=== PATIENT | female | born 1975 | race Caucasian/White ===

== ENCOUNTER 2023-03-31 10:38 | Emergency (ER) | payer OTHER, MEDICAID, SELFPAY ==
[2023-03-31 10:39] VITALS: BP 106/66
[2023-03-31 11:28] LABS: % Basophils 1.8 % (0-2); % Eosinophils 2.7 % (0-6); % Immature Granulocytes 0.2 % (0-0.5); % Lymphocytes 17.1 % (20.5-51.1); % Neutrophils 68.2 % (42.2-75.2); Absolute Basophils 0.1 10^3/uL (0-0.2); Absolute Eosinophils 0.1 10^3/uL (0-0.7); Absolute Lymphocytes 0.8 10^3/uL (1.2-3.4); Absolute Monocytes 0.4 10^3/uL (0.1-0.6); Hematocrit 41.9 % (37.0-47.0); Hemoglobin 13.7 g/dL (12.0-16.0); Mean Corp Hgb Conc. 32.7 g/dL (33.0-37.0); Mean Corpuscular Hgb 29.3 pg (27.0-31.0); Mean Corpuscular Volume 89.7 fL (81.0-99.0); Mean Platelet Volume 9.5 fL (7.4-10.4); Nucleated Red Blood Cells % 0 %; Platelet Count 209 10^3/uL (130-400); Red Blood Cell Count 4.67 10^6/uL (4.20-5.40); Red Cell Dist. Width 18.1 % (11.5-14.5); White Blood Cell Count 4.4 10^3/uL (4.8-10.8)
--- NOTE | 2023-03-31 11:31 | ED.GENMED ---
History of Present Illness
<Dwaine Murry PA-C - Last Filed: 03/31/23 13:03>
General
Chief Complaint: Fatigue
Source: patient, records and ambulance crew
Time Seen by Provider: 03/31/23 11:08
Travel History
Have you had any contact with someone who has COVID-19?: No
Do you have any symptoms of coronavirus? Fever > 100 degrees, chills, cough, shortness of breath, sore throat, loss of taste or smell, muscle aches, or headache?: No
History of Present Illness
History of Present Illness:
47-year-old female with past medical history of Down syndrome, developmental delay, hypothyroidism and prediabetes presenting to the ER via EMS after there was an episode of unresponsiveness when the father went to go wake up the patient this
morning. Father notes history of multiple similar episodes over the last few months and patient has had multiple workups for this without any clear etiology. Symptoms today were not any different than the last few months. Patient has been seen in
this emergency department for similar again without any clear etiology found. Father notes that they had a evaluation at the cardiology office last week and that all tests were unremarkable. Patient is without any concerns at this time.
Past History
<Dwaine Murry PA-C - Last Filed: 03/31/23 13:03>
Past History
ED Past Medical History: Hypothyroidism, Psychiatric (Depression, ), Other (PNA, ) and Other (Down syndrome, pulmonary hypertension, SOPHY with CPAP, morbid obesity, )
ED Past Surgical History: Cardiac ([employer] Loop Recorder), Orthopedic (Left leg surgery), Tonsilectomy and Other (heart valve surgery as infant)
Social History
Tobacco: Non-smoker
Alcohol: None
Drug: None
Personal: Single
Living: with family
Employment: Employed
Review of Systems
<Dwaine Murry PA-C - Last Filed: 03/31/23 13:03>
Review of Systems
All Other Systems: ROS reviewed and negative except as documented in HPI and ROS
Phy Exam
<Dwaine Murry PA-C - Last Filed: 03/31/23 13:03>
Physical Exam
Physical Exam:
GENERAL: Alert , in no apparent distress
EYE: conjunctiva clear
Head: Normocephalic atraumatic
NECK: Supple,
ENT: mmm.
LUNGS: no acute respiratory distress
NEUROLOGICAL: Alert and oriented
SKIN: Warm and dry, skin intact.
MUSCULOSKELETAL: well perfused.
PSYCH: Normal and appropriate interaction.
Scores
<Dwaine Murry PA-C - Last Filed: 03/31/23 13:03>
Heart Failure Risk
Heart Failure Risk Score: Not Applicable
Heart Score for Chest Pain Patients
STEMI patient?: Not applicable
Withdrawal Assessment of Alcohol
Withdrawal Assessment Completed?: Not applicable
Course
<Dwaine Murry PA-C - Last Filed: 03/31/23 13:03>
Orders/Labs/Results
Orders:
Orders
03/31/23 11:07
Electrocardiogram (*1) Urgent
Reason for Study: Chest Pain
Cardiac Monitoring- Treatment ONCE
EKG- Treatment ONCE
IV Insert/Care/Rem.- Treatment PRN
Pulse Ox/spot Check [RESP] Urgent
Quantity: 1
Special Instructions: ON ROOM AIR
03/31/23 11:08
Basic Metabolic Panel Urgent
Complete Blood Count/With Diff Urgent
Troponin I Urgent
03/31/23 12:02
Urinalysis Reflex To Culture Urgent
Date Specimen was Collected: 03/31/23
Time Specimen was Collected: 11:59
Abnormal Lab Results
03/31/23
11:08
WBC 4.4 L 10^3/uL
(4.8-10.8)
MCHC 32.7 L g/dL
(33.0-37.0)
RDW 18.1 H %
(11.5-14.5)
Absolute Lymphs (auto) 0.8 L 10^3/uL
(1.2-3.4)
Lymphocytes % 17.1 L %
(20.5-51.1)
Monocytes % 10.0 H %
(1.7-9.3)
BUN 24 H mg/dl
(7-17)
Calcium 8.1 L mg/dl
(8.4-10.2)
03/31/23 11:08
03/31/23 11:08
Vital Signs
Initial and Last Documented VS:
Initial Vital Signs
Temp Pulse Resp BP Pulse Ox
98.3 F 66 18 106/66 95
03/31/23 10:39 03/31/23 10:39 03/31/23 10:39 03/31/23 10:39 03/31/23 10:39
Last Documented Vital Signs
Temp Pulse Resp BP Pulse Ox
98.3 F 77 18 106/66 98
03/31/23 13:05 03/31/23 13:05 03/31/23 13:05 03/31/23 10:39 03/31/23 13:05
<Shawn Bonilla, DO - Last Filed: 03/31/23 15:23>
Orders/Labs/Results
Orders:
Orders
03/31/23 11:07
Electrocardiogram (*1) Urgent
Reason for Study: Chest Pain
Cardiac Monitoring- Treatment ONCE
EKG- Treatment ONCE
IV Insert/Care/Rem.- Treatment PRN
Pulse Ox/spot Check [RESP] Urgent
Quantity: 1
Special Instructions: ON ROOM AIR
03/31/23 11:08
Basic Metabolic Panel Urgent
Complete Blood Count/With Diff Urgent
Troponin I Urgent
03/31/23 12:02
Urinalysis Reflex To Culture Urgent
Date Specimen was Collected: 03/31/23
Time Specimen was Collected: 11:59
Abnormal Lab Results
03/31/23
11:08
WBC 4.4 L 10^3/uL
(4.8-10.8)
MCHC 32.7 L g/dL
(33.0-37.0)
RDW 18.1 H %
(11.5-14.5)
Absolute Lymphs (auto) 0.8 L 10^3/uL
(1.2-3.4)
Lymphocytes % 17.1 L %
(20.5-51.1)
Monocytes % 10.0 H %
(1.7-9.3)
BUN 24 H mg/dl
(7-17)
Calcium 8.1 L mg/dl
(8.4-10.2)
03/31/23 11:08
03/31/23 11:08
Vital Signs
Initial and Last Documented VS:
Initial Vital Signs
Temp Pulse Resp BP Pulse Ox
98.3 F 66 18 106/66 95
03/31/23 10:39 03/31/23 10:39 03/31/23 10:39 03/31/23 10:39 03/31/23 10:39
Last Documented Vital Signs
Temp Pulse Resp BP Pulse Ox
98.3 F 77 18 106/66 98
03/31/23 13:05 03/31/23 13:05 03/31/23 13:05 03/31/23 10:39 03/31/23 13:05
<Dwaine Murry PA-C - Last Filed: 03/31/23 13:03>
MDM/Problems Addressed
Differential Diagnosis Includes:
Cardiac dysrhythmia, electrolyte derangement, anemia, seizure, vagal episode
MDM/Problems Addressed:
47-year-old female presenting emergency department for evaluation after she had an episode of being difficult to arouse earlier this morning, without any concerns at this time. Patient has had multiple similar visits to this emergency department
recently. No clear etiology is found and overall I am not very suspicious of any acute emergent pathologies. Will recheck labs, EKG, urinalysis and reassess following. I spoke with father via telephone as he is currently not in the emergency
department and father also agrees there is unlikely any acute emergent pathology and that there was no symptoms that were different today than previous visits to the emergency department.
Chronic conditions affecting care: Other (Developmental delay/Down syndrome)
<Dwaine Murry PA-C - Last Filed: 03/31/23 13:03>
*Pulse Oximetry
Patient hypoxic: no
*Critical Care Note
Total Time (30-74mins, 75-104mins- exclusive of procedures): Not Applicable
<Dwaine Murry PA-C - Last Filed: 03/31/23 13:03>
Patient Management
Escalation/DeEscalation of care consider admission/obs:
Patient's labs overall reassuring. There is a leukopenia however this does appear to be chronic for the patient based off of record review. Urinalysis is unremarkable. I contacted patient's father who will come to the emergency department to pick
the patient up. Patient and father are both aware of return precautions but otherwise stable for discharge home.
ED Attending Note
<Dwaine Murry PA-C - Last Filed: 03/31/23 13:03>
-
Portions of this chart may have been created with voice recognition software.� Occasional wrong word or��sound alike� substitutions may have occurred due to the inherent limitations of voice recognition software.
<Shawn Bonilla DO - Last Filed: 03/31/23 15:23>
ED Attending Note
Patient seen and examined by attending physician: Yes
ED Attending Note:
I have reviewed and agree with Artur Murry's history and treatment plan. Exam revealed nontoxic well-appearing 47-year-old female ambulating without difficulty. Stable for discharge.
Discharge Plan
Departure
Patient Disposition: Home (Routine Discharge)
Date of Disposition: 03/31/23
Time of Disposition: 12:47
Patient with high blood pressure during this ER visit?: No
Discharge Problem:
Episode of unresponsiveness
Instructions: Fatigue (DC)
Prescriptions:
No Action
ascorbic acid (vitamin C) [Vitamin C] 500 mg Tablet
500 mg PO DAILY
escitalopram oxalate 10 mg tablet
10 mg PO DAILY
Hold Instructions: Resume on 07/04/23. Only resume if any only if your outpatient providers say you should resume this medication.
ezetimibe 10 mg tablet
10 mg PO DAILY
albuterol sulfate [ProAir HFA] 90 mcg/actuation HFA aerosol inhaler
2 puff inhalation R Q4HPRN PRN (Reason: shortness of breath)
cyanocobalamin (vitamin B-12) 1,000 mcg Tablet
1,000 mcg PO DAILY
levothyroxine 112 mcg Tablet
112 mcg PO DAILY@0700 Qty: 30 0RF
Hold Instructions: Resume on 03/28/23.
midodrine 2.5 mg Tablet
2.5 mg PO TID@0800,1300,1800
Hold Instructions: Resume on 06/25/23. Only resume this medication if and only if your outpatient providers say you should resume this medication.
guaifenesin 600 mg tablet extended release 12hr
600 mg PO Q12H
Referrals:
UNKNOWN - PT DOES,NOT KNOW [Family Provider] -
Interventions
Interventions:
*Risk Screen - Suicide Last Done: 03/31/23 10:39
*General Assessment Last Done: 03/31/23 10:39
*Neglect/Abuse Screening Last Done: 03/31/23 10:39
ED- Fall Risk Assessment Last Done: 03/31/23 13:05
*ED COVID-19 Vaccine History Last Done: 03/31/23 10:39
*Nursing Disposition Last Done: 03/31/23 13:05
Discharge Date and Time
Discharge Date/Time: 03/31/23 13:06
[2023-03-31 11:45] LABS: Blood Urea Nitrogen 24 mg/dl (7-17); Calcium 8.1 mg/dl (8.4-10.2); Carbon Dioxide 28 mmol/L (22-30); Chloride 104 mmol/L (98-107); Glucose 97 mg/dl (70-99); Sodium 135 mmol/L (135-145); eGFR > 60.00
--- NOTE | 2023-03-31 11:50 | CM ---
CM reviewed medical records. CM spoke with ED provider. Patient presenting with ongoing symptoms of unresponsiveness. Patient is now awake and oriented to her baseline. CM will continue to follow for needs.
[2023-03-31 11:51] LABS: Troponin I < 0.012 ng/ml
[2023-03-31 12:22] LABS: Urine Albumin Negative (Neg - Trace); Urine Bilirubin Negative (Negative); Urine Character Clear (Clear); Urine Color Yellow; Urine Glucose Negative (Negative); Urine Ketone Negative (Negative); Urine Leukocyte Negative (Negative); Urine Nitrite Negative (Negative); Urine Occult Blood Negative (Negative); Urine Urobilinogen Negative (Neg - 1+)
== END 2023-03-31 13:06 | disposition home or self-care (01) ==
LOC: EMR 10:38
PROVIDERS: Physician Assistant Medical; EMERGENCY PHYSICIAN Emergency Medicine
DX: R46.4 Slowness and poor responsiveness (principal); Q90.9 Down syndrome, unspecified
CPT/HCPCS: 99284; 80048; 81003; 84484; 85025; 93005

== ENCOUNTER 2023-04-01 09:32 | Emergency (ER) | payer OTHER, MEDICAID, SELFPAY ==
[2023-04-01 09:39] VITALS: BP 122/84
[2023-04-01 09:50] VITALS: BP 106/65
[2023-04-01 09:53] VITALS: BMI 50.8
--- NOTE | 2023-04-01 09:55 | EDRN ---
this RN entered the pts room to assess the pt, the pts father stated to this RN, 'We were going to leave, she lays herself on the floor, she does not fall, she says she falls but she doesn't, she does this at home all the time, she watches greys
anatomy and just wants to be in the hospital, this is ridiculous', this RN notified provider
[2023-04-01 10:00] VITALS: BP 101/64
--- NOTE | 2023-04-01 10:56 | EDRN ---
this RN attempted to draw blood and was unsuccessful, IV team paged
[2023-04-01 11:18] LABS: % Basophils 1.8 % (0-2); % Eosinophils 2.7 % (0-6); % Immature Granulocytes 0.2 % (0-0.5); % Lymphocytes 16.4 % (20.5-51.1); % Monocytes 15.6 % (1.7-9.3); % Neutrophils 63.3 % (42.2-75.2); Absolute Basophils 0.1 10^3/uL (0-0.2); Absolute Eosinophils 0.1 10^3/uL (0-0.7); Absolute Lymphocytes 0.8 10^3/uL (1.2-3.4); Absolute Monocytes 0.8 10^3/uL (0.1-0.6); Absolute Neutrophils 3.1 10^3/uL (1.4-6.5); Hematocrit 40.8 % (37.0-47.0); Hemoglobin 13.3 g/dL (12.0-16.0); Mean Corp Hgb Conc. 32.6 g/dL (33.0-37.0); Mean Corpuscular Hgb 29.2 pg (27.0-31.0); Mean Corpuscular Volume 89.5 fL (81.0-99.0); Mean Platelet Volume 9.8 fL (7.4-10.4); Nucleated Red Blood Cells % 0 %; Platelet Count 214 10^3/uL (130-400); Red Blood Cell Count 4.56 10^6/uL (4.20-5.40); Red Cell Dist. Width 17.9 % (11.5-14.5); White Blood Cell Count 4.9 10^3/uL (4.8-10.8)
[2023-04-01 11:29] LABS: ALT (SGPT) 90 U/L (0-35); AST (SGOT) 44 U/L (14-36); Albumin 3.3 g/dl (3.5-5.0); Alkaline Phosphatase 76 U/L (38-126); Blood Urea Nitrogen 15 mg/dl (7-17); Calcium 8.4 mg/dl (8.4-10.2); Carbon Dioxide 27 mmol/L (22-30); Chloride 107 mmol/L (98-107); Estimated Creatinine Clearance 105 ml/min; Glucose 94 mg/dl (70-99); Potassium 4.4 mmol/L (3.5-5.1); Sodium 136 mmol/L (135-145); Total Bilirubin 0.5 mg/dl (0.2-1.3); Total Protein 6.1 g/dl (6.3-8.2); eGFR > 60.00
[2023-04-01 12:01] LABS: HCG, Serum Qualitative Screen Negative
--- NOTE | 2023-04-01 12:23 | ED.GENMED ---
History of Present Illness
General
Chief Complaint: Headache
Source: patient, records and family (Father)
Exam Limitations: none
Time Seen by Provider: 04/01/23 09:57
Nursing documentation reviewed up to this point in time: agreed with
Travel History
Have you had any contact with someone who has COVID-19?: No
Do you have any symptoms of coronavirus? Fever > 100 degrees, chills, cough, shortness of breath, sore throat, loss of taste or smell, muscle aches, or headache?: No
History of Present Illness
History of Present Illness:
47-year-old female with a past medical history of recurrent syncope, Down syndrome, congenital heart disease, hypothyroidism, depression, pulmonary hypertension, obesity, SOPHY who presents to the emergency room today for evaluation of unresponsive
episode. Of note this is patient's fifth visit in the past 30 days with similar presentation. Most recently seen yesterday and discharged after an episode. She was admitted 03/12 until 03/15 related to medication overdose but was also having issues
with syncope. Has been seen and cleared by cardiology. Her father essentially says that patient seems to have a behavioral issue: He says that when he goes to wake patient from sleep often in the morning he has trouble arousing her�he describes
this as being unresponsive but says the patient is moving spontaneously including batting him away and does appear to be breathing. She also has had episodes where he says that she 'laid herself onto the ground.' Today he says that he went to wake
her up and again she was difficult to arouse. He called EMS and they did not end up bring patient to the hospital instead recommended that he go seek psychiatric care. He went to [facility] and was told that she is not a danger to herself and can seek
outpatient psychiatric care. When they were leaving the hospital patient asked to use the bathroom and when she went to the bathroom she did not immediately come out and staff found her lying on the floor although she was awake. She says she did
not hit her head. Initially was apparently complaining of a headache today but she says she has no headache at present. She says she feels fine. Father says that oftentimes these episodes seem to be precipitated by father having her to do
something she does not want to do such as go home.
Past History
Past History
ED Past Medical History: Hypothyroidism, Psychiatric (Depression, ), Other (PNA, ) and Other (Down syndrome, pulmonary hypertension, SOPHY with CPAP, morbid obesity, )
ED Past Surgical History: Cardiac ([employer] Loop Recorder), Orthopedic (Left leg surgery), Tonsilectomy and Other (heart valve surgery as infant)
Social History
Tobacco: Non-smoker
Alcohol: None
Drug: None
Personal: Single
Living: with family
Employment: Employed
Phy Exam
Physical Exam
Physical Exam:
General: Awake, alert; no acute distress
Head: Normocephalic, atraumatic
Eyes: Conjunctiva normal, EOMI, pupils equal round reactive to light bilaterally
Throat: Airway intact, handling secretions
Neck: Trachea midline, supple without meningismus
Lungs: Clear to auscultation bilaterally, no wheezing, rales, rhonchi
Heart: Regular rate and rhythm, no murmurs, gallops, or rubs
Abd: Soft, non distended, nontender
Neuro: Cranial nerves grossly intact, speech fluid
Skin: no rash
Extremities: No edema in extremities, equal pulses in all extremities
Scores
Heart Failure Risk
Heart Failure Risk Score: Not Applicable
Heart Score for Chest Pain Patients
STEMI patient?: Not applicable
Withdrawal Assessment of Alcohol
Withdrawal Assessment Completed?: Not applicable
Course
Orders/Labs/Results
Orders:
Orders
04/01/23 10:02
Electrocardiogram (*1) Urgent
Reason for Study: Vertigo / Dizzy
CT Head W/o Iv Contrast Urgent
Comment:
Reason For Exam: headache, dizzy, ?fall
EKG- Treatment ONCE
Test Result ONCE
04/01/23 11:02
Complete Blood Count/With Diff Urgent
Comprehensive Metabolic Panel Urgent
Ferritin Urgent
HCG, Serum Qualitative Screen Urgent
Vitamin B12 Urgent
Comment: FERRITIN,FOLATE,B12 ADDED ON BY FLOOR 11:50AM 04-01-23
04/01/23 11:47
Consult Neurology [NEUROLOGY CONSULT] Urgent
Consulting Provider: Aram Alonzo
Was physician already notified: Yes
04/01/23 11:51
Add On- LAB Urgent
Tests Added?: Ferritin, Folate, Vitamin B12
04/01/23 11:58
Orthostatic VS- Treatment ONCE
Abnormal Lab Results
04/01/23
11:02
MCHC 32.6 L g/dL
(33.0-37.0)
RDW 17.9 H %
(11.5-14.5)
Absolute Lymphs (auto) 0.8 L 10^3/uL
(1.2-3.4)
Absolute Monos (auto) 0.8 H 10^3/uL
(0.1-0.6)
Lymphocytes % 16.4 L %
(20.5-51.1)
Monocytes % 15.6 H %
(1.7-9.3)
Ferritin 269.0 H ng/ml
(6.24-137)
AST 44 H U/L
(14-36)
ALT 90 H U/L
(0-35)
Total Protein 6.1 L g/dl
(6.3-8.2)
Albumin 3.3 L g/dl
(3.5-5.0)
04/01/23 11:02
04/01/23 11:02
Vital Signs
Initial and Last Documented VS:
Initial Vital Signs
Temp Pulse Resp BP Pulse Ox
36.9 C 57 16 122/84 98
04/01/23 09:39 04/01/23 09:39 04/01/23 09:39 04/01/23 09:39 04/01/23 09:39
Last Documented Vital Signs
Temp Pulse Resp BP Pulse Ox
36.9 C 57 16 101/64 98
04/01/23 09:39 04/01/23 09:39 04/01/23 09:39 04/01/23 10:00 04/01/23 09:39
MDM/Problems Addressed
Differential Diagnosis Includes:
Recurrent syncope, seizure, behavioral issue
MDM/Problems Addressed:
47-year-old female presents once again for evaluation after episode of unresponsiveness/syncope. Apparently had a mild headache today. Father questions whether this is a behavioral issue. She appears well has no complaints for me. Her vital
signs are normal. Her physical exam is as above. Her EKG shows borderline QTc prolongation but otherwise unremarkable. Will check basic labs. Check an hCG. Check CT head. She has had extensive cardiac workup for this and been essentially
cleared from their perspective. Will discuss with neurology to evaluate for potential minor seizures. Monitor on telemetry and reassess after the above.
Labs reviewed: CBC unremarkable, CMP no clinically significant abnormalities�marginal elevation of LFTs which is stable. hCG negative. CT head negative. Neurology evaluated patient and from their perspective low suspicion that this represents
seizure or other primary neurologic disorder. Recommended outpatient follow-up. She has had no issues here she remains comfortable with reassuring vitals and exam, father requesting discharge and I think at this point is a reasonable plan. She
will follow-up with her primary, supervisor dyer and with neurology as an outpatient. Spoke about return precautions all questions answered.
*Radiology
Radiology exam reviewed: radiology read reviewed
*Pulse Oximetry
Patient hypoxic: no
*EKG
Comparison EKG: no changes (No significant changes-QTc only marginally longer than previous)
Heart Rate: 62
Rate: normal
Rhythm: sinus
Townsend: normal axis
Interval: long QT
QRS Pattern: right bundle branch block
Ischemia: no ischemia
*Critical Care Note
Total Time (30-74mins, 75-104mins- exclusive of procedures): Not Applicable
Data Reviewed
Review of Other/Old Records Reveals: Labs, Records and Discharge Summary
Source: patient, records and family
Patient Management
Discussion with other providers: [employer] (Discussed with neurology)
ED Attending Note
-
Portions of this chart may have been created with voice recognition software.� Occasional wrong word or��sound alike� substitutions may have occurred due to the inherent limitations of voice recognition software.
Discharge Plan
Departure
Patient Disposition: Home (Routine Discharge)
Date of Disposition: 04/01/23
Time of Disposition: 13:41
Patient with high blood pressure during this ER visit?: No
Discharge Problem:
Recurrent episodes of unresponsiveness
Instructions: Fainting, Adult ED
Prescriptions:
No Action
ascorbic acid (vitamin C) [Vitamin C] 500 mg Tablet
500 mg PO DAILY
escitalopram oxalate 10 mg tablet
10 mg PO DAILY
Hold Instructions: Resume on 07/04/23. Only resume if any only if your outpatient providers say you should resume this medication.
ezetimibe 10 mg tablet
10 mg PO DAILY
albuterol sulfate [ProAir HFA] 90 mcg/actuation HFA aerosol inhaler
2 puff inhalation R Q4HPRN PRN (Reason: shortness of breath)
cyanocobalamin (vitamin B-12) 1,000 mcg Tablet
1,000 mcg PO DAILY
levothyroxine 112 mcg Tablet
112 mcg PO DAILY@0700 Qty: 30 0RF
Hold Instructions: Resume on 03/28/23.
guaifenesin 600 mg tablet extended release 12hr
600 mg PO Q12H
Referrals:
Aram Alonzo MD [Active] - Call in 1-3 days for appt (Neurology)
Marlon Mina DO [Family Provider] - Call in 1-3 days for appt
Activity Restrictions/Additional Instructions:
Thank you for visiting the Emergency Department at [facility].
1. Please schedule a follow up appointment as directed. Call first thing tomorrow morning to make an appointment.
2. If indicated, please take your medications as instructed and indicated on discharge paperwork.
3. If any of your symptoms do not improve, or persist, or become more severe within 6-12 hours, please return to the emergency department for further care.
4. Please return to the emergency department if you develop a headache, neck pain/stiffness, fever greater than 100.4F, chest pain, shortness of breath, persistent nausea, vomiting, slurred speech, difficulty walking, numbness/tingling, weakness,
signs of infection or any other symptoms that are worrisome to you.
Please call [phone] if you have any questions.
Interventions
Interventions:
*Risk Screen - Suicide Last Done: 04/01/23 09:53
*General Assessment Last Done: 04/01/23 09:53
*Neglect/Abuse Screening Last Done: 04/01/23 09:53
ED- Fall Risk Assessment Last Done: 04/01/23 09:53
*ED COVID-19 Vaccine History Last Done: 04/01/23 09:39
*Nursing Disposition Last Done: 04/01/23 13:45
ED- Neurological Assessment Last Done: 04/01/23 09:53
Discharge Date and Time
Discharge Date/Time: 04/01/23 13:46
--- NOTE | 2023-04-01 12:32 | CON.NEURO4 ---
Addendum entered and electronically signed by Aram Alonzo MD 04/01/23 14:06:
Studies reviewed.
I have personally examined the patient. I reviewed and agree with the VICE PRESIDENT AND PORTFOLIO MANAGER's Note.
My addenda:
Awake, alert, interactive. No acute distress.
Speech thick, simple, reduced content.
Follows 2-step requests w/ difficulty. No tremor.
Extra-ocular movements grossly intact.
Facial movements full and symmetric. Hearing intact to normal conversational volume.
Normal UE movements bilaterally.
Neck: full ROM.
Chest: no dyspnea
Heart: no JVD
Ext: (-) Clubbing, (-) Cyanosis, (-) Edema
IMPRESSIONS/RECOMMENDATIONS:
Abrupt onset of recurrent syncope, less likely actually representing a cardiovascular issue in light of negative orthostatic evaluations
Most likely etiology is conversion reaction
Unlikely be benefited from neuropsychological evaluation based on intellectual disability and therefore reducing gain that the patient may being a patient in the emergency department may be of assistance
Continue midodrine as needed
D/W patient / family / nursing
All questions answered.
Will continue to follow as needed. Patient should follow-up with her manager field sales as planned.
Original Note:
Consultation - Neurology 4
-
CONSULTING PHYSICIAN: Aram Alonzo MD
REFERRING PHYSICIAN: ER/Dr. Dahl
DICTATED BY: XAVIER Ram
DATE/TIME OF REQUEST: 04/01/23
DATE/TIME OF CONSULTATION: 04/01/23
Reason for Consultation: Unresponsive episode
History of Present Illness:
This is a 47-year-old right-handed female who has presented to the hospital with report of recurrent unresponsive episode. Patient had pneumonia in November 2022, and since that time has had at least 12 episodes of being unresponsive or being found
lying on the floor. She has had an extensive workup by Cardiology for these events including implantable Linq monitor that has been negative during these events. Orthostatic vital signs have been intermittently positive in the past. She has had an
incident in February 2023 in which she took a handful of midodrine and levothyroxine pills at the same time, 83 were missing. There is no tongue biting or bowel/bladder incontinence with these events. Patient does report feeling dizzy with weakness
in her legs prior to the falling events. This morning, patient's father reports that he was unable to wake the patient up from sleep. He went to pick her up and she pulled him towards her. He called EMS out of concern, and reports that he later
found 4 cold medicine tablets missing that he thinks she took before bed around 1999 last evening. Patient denies any headache, vision changes, speech/swallow difficultly, numbness, unilateral weakness, chest pain, palpitations, and shortness of
breath. She is very high functioning and manages all of the cooking, cleaning, shopping, and dog walking for the household. She does not drive. In her free time she watches several different medical drama series on TV.
Past Medical History: Down syndrome, hypothyroidism, depression, pulmonary hypertension, SOPHY (cpap), ovarian cyst
Surgical History: heart surgery at age 3 (ASD repair?), [employer] loop records, LLE surgical repair, tonsillectomy
Family History: Unknown, adopted.
Social History: Denies alcohol, tobacco, and illicit drug use.
Allergies: Penicillin G.
Home Medications: See below.
Review of Symptoms:
Patient denies any fever, headache, chest pain, shortness of breath, GI or symptoms.
�Per the HPI.�All systems are reviewed negative except above.
Physical Exam:
The patient is afebrile, abdomen is nondistended, breathing is unlabored, skin is warm and dry, no edema.
Neurologic Examination:
The patient is awake, alert and oriented x 3. She is able to follow commands and answer questions appropriately. There is no aphasia or dysarthria. On cranial nerve assessment, pupils are 3 mm bilateral, round and reactive to light and
accommodation. 2+ left eye esotropia. Visual shore are full. Extraocular movements are intact. Facial sensations are intact and bilaterally symmetrical, there is no facial asymmetry. Hearing is intact bilaterally to normal conversation volume.
Tongue palate and uvula are midline. Sternocleidomastoid strengths are full bilaterally. Motor strengths are 5/5 bilateral upper and lower extremities on medical research [place] scale. There is no drift or involuntary movement noted. Deep tendon
reflexes are 2+ bilateral upper and lower extremities and Babinski is absent bilaterally. There was no extinction noted on double simultaneous stimulation. Coordination is intact by finger to nose bilaterally.
Lab Results: See below.
Neuro Imaging:
1. CT Head 04/01/23: No acute intracranial process. No significant interval change.
Differentials for the patient's presentation include:
1. Likely a combination of intermittent orthostasis and conversion disorder contributing to unresponsive episodes.
2. Very low concern for seizure producing events.
3. Some concern for early cognitive decline in patient.
Recommendations:
-Patient needs outpatient psychiatry sessions.
-Provide resources for increased help at home services.
-Continue cpap for SOPHY.
-Would have patient's father manage the household medications.
-Increase water intake.
-Follow-up with Neurology as an outpatient for cognitive evaluation, consider neuropsychological testing. May see the VICE PRESIDENT AND PORTFOLIO MANAGER or one of the physicians.
Discussed patient care with: Dr. Alonzo, the patient, patient's father
Vital Signs and Labs
-
Vital Signs and Labs:
Vital Signs
Temp Pulse Resp BP Pulse Ox
98.5 F 57 16 101/64 98
04/01/23 09:39 04/01/23 09:39 04/01/23 09:39 04/01/23 10:00 04/01/23 09:39
Lab Results
04/01/23 11:02
04/01/23 11:02
Sodium 136 mmol/L (135-145) 04/01/23 11:02
Potassium 4.4 mmol/L (3.5-5.1) 04/01/23 11:02
BUN 15 mg/dl (7-17) 04/01/23 11:02
Glucose 94 mg/dl (70-99) 04/01/23 11:02
Calcium 8.4 mg/dl (8.4-10.2) 04/01/23 11:02
Vitamin B12 Cancelled 04/01/23 11:47
Medications
-
Home Medications
Medication Instructions Recorded
ascorbic acid (vitamin C) 500 mg 500 mg PO DAILY Supplement 12/10/21
tablet (Vitamin C)
escitalopram oxalate 10 mg tablet 10 mg PO DAILY Depression 12/10/21
albuterol sulfate 90 mcg/actuation 2 puff inhalation R Q4HPRN PRN 12/29/22
aerosol inhaler (ProAir HFA) shortness of breath
ezetimibe 10 mg tablet 10 mg PO DAILY High Cholesterol 12/29/22
cyanocobalamin (vitamin B-12) 1,000 mcg PO DAILY Supplement 03/02/23
1,000 mcg tablet
levothyroxine 112 mcg tablet 112 mcg PO DAILY@0700 #30 tabs 03/04/23
guaifenesin 600 mg tablet, 600 mg PO Q12H MUCOUS 03/12/23
extended release 12 hr
[2023-04-01 14:43] LABS: Vitamin B12 272 pg/ml (239-931)
== END 2023-04-01 13:46 | disposition home or self-care (01) ==
LOC: EMR 09:32
PROVIDERS: CONSULT PHYSICIAN Psychiatry & Neurology Neurology; EMERGENCY PHYSICIAN Emergency Medicine; FAMILY PHYSICIAN Family Medicine
DX: R51.9 Headache, unspecified (principal); Q90.9 Down syndrome, unspecified; Q24.9 Congenital malformation of heart, unspecified; E03.9 Hypothyroidism, unspecified; F32.A Depression, unspecified; E66.01 Morbid (severe) obesity due to excess calories; G47.33 Obstructive sleep apnea (adult) (pediatric); I27.20 Pulmonary hypertension, unspecified; Z88.0 Allergy status to penicillin
CPT/HCPCS: 99284; 70450; 80053; 82607; 82728; 84703; 85025; 93005

== ENCOUNTER 2023-04-02 12:40 | Emergency (ER) | payer OTHER, MEDICAID, SELFPAY ==
[2023-04-02] VITALS (9 sets, daily range): BP systolic 103–139; BP diastolic 67–92
--- NOTE | 2023-04-02 15:29 | ED.GENMED ---
History of Present Illness
General
Chief Complaint: Overdose Intentional
Source: patient
Time Seen by Provider: 04/02/23 15:02
Travel History
Have you had any contact with someone who has COVID-19?: No
Do you have any symptoms of coronavirus? Fever > 100 degrees, chills, cough, shortness of breath, sore throat, loss of taste or smell, muscle aches, or headache?: No
History of Present Illness
History of Present Illness:
47-year-old female presents to the emergency room for patient via ambulance because she took '99 stool softeners'. Patient states the bottle was full except for 1 pill. She took the whole bottle. Medics reports took half a bottle so unclear why
there is a discrepancy. No family is here with the patient. Patient has developmental delay. She was hospitalized here at [facility] after a polypharmacy overdose a couple weeks ago. At that time she was quite bradycardic but fortunately
improved without intervention. Bradycardia thought to be due to midodrine at that time.
Past History
Past History
ED Past Medical History: Hypothyroidism, Psychiatric (Depression, ), Other (PNA, ) and Other (Down syndrome, pulmonary hypertension, SOPHY with CPAP, morbid obesity, )
ED Past Surgical History: Cardiac ([employer] Loop Recorder), Orthopedic (Left leg surgery), Tonsilectomy and Other (heart valve surgery as infant)
Social History
Tobacco: Non-smoker
Alcohol: None
Drug: None
Personal: Single
Living: with family
Employment: Employed
Phy Exam
Physical Exam
Physical Exam:
General: Awake, Alert, Oriented X3. No acute distress, stigmata of trisomy 21
Vitals: unremarkable
Head: Atraumatic
Eyes: Pupils equal, EOMI
Throat: Airway intact, no exudates, dry mucosa
Neck: Trachea midline
Lungs: Clear and equal b/l
Heart: Regular rate, no murmurs
Abd: Soft, Nontender, No pulsatile mass
Neuro: Nonfocal
Skin: Warm, dry, no rash
Extremities: pulses equal b/l, no edema
Course
Orders/Labs/Results
Orders:
Orders
04/02/23 15:28
Urine Drug Abuse Screen Urgent
0.9% Sodium Chloride 500 ml [Nss] 500 ml IV BOLUS
04/02/23 15:29
Electrocardiogram (*1) Urgent
Reason for Study: QTc Monitoring
Crisis Consult Urgent
Reason for Consult: intentional overdose
Cardiac Monitoring- Treatment ONCE
EKG- Treatment ONCE
04/02/23 16:37
Complete Blood Count/With Diff Urgent
04/02/23 17:51
Acetaminophen Urgent
Alcohol Urgent
Comprehensive Metabolic Panel Urgent
Salicylate Urgent
Abnormal Lab Results
04/02/23 04/02/23
16:37 17:51
RBC 5.57 H 10^6/uL
(4.20-5.40)
Hgb 16.3 H D g/dL
(12.0-16.0)
Hct 50.5 H %
(37.0-47.0)
MCHC 32.3 L g/dL
(33.0-37.0)
RDW 18.5 H %
(11.5-14.5)
Absolute Lymphs (auto) 1.0 L 10^3/uL
(1.2-3.4)
Lymphocytes % 18.0 L %
(20.5-51.1)
Glucose 102 H mg/dl
(70-99)
AST 38 H U/L
(14-36)
ALT 77 H U/L
(0-35)
Salicylates < 1.0 L mg/dl
(2.0-20.0)
Acetaminophen < 10 L ug/ml
(10-30)
04/02/23 16:37
04/02/23 17:51
Vital Signs
Initial and Last Documented VS:
Initial Vital Signs
Temp Pulse Resp BP Pulse Ox
98.1 F 89 18 119/74 97
04/02/23 12:43 04/02/23 12:43 04/02/23 12:43 04/02/23 12:43 04/02/23 12:43
Last Documented Vital Signs
Temp Pulse Resp BP Pulse Ox
98.1 F 83 19 139/89 91
04/02/23 12:43 04/02/23 22:00 04/02/23 22:00 04/02/23 22:00 04/02/23 22:00
MDM/Problems Addressed
Differential Diagnosis Includes:
Stool softener overdose, polypharmacy overdose
MDM/Problems Addressed:
Labs show no acetaminophen, salicylate or alcohol in her system. She is remained hemodynamically stable. Crisis consult was obtained and evaluation via telepsych performed. They believe the patient is safe to be discharged. No benefit to
psychiatric hospitalization for the patient such as her. Dad comfortable taking her home.
*Pulse Oximetry
Patient hypoxic: no
*EKG
Interpreted by ED Provider?: Yes
Interpretation: normal
Heart Rate: 79
Rate: normal
Rhythm: sinus
[place]: normal axis
Interval: normal interval
QRS Pattern: normal QRS
Ischemia: no ischemia
*Automotive Manufacturer Interpretation
Rate: normal
Interpretation: normal
Rhythm: sinus
*Critical Care Note
Total Time (30-74mins, 75-104mins- exclusive of procedures): Not Applicable
Patient Management
Social determinants of health affecting care: Living situation and Strong social support
ED Attending Note
-
Portions of this chart may have been created with voice recognition software.� Occasional wrong word or��sound alike� substitutions may have occurred due to the inherent limitations of voice recognition software.
Discharge Plan
Departure
Patient Disposition: Home (Routine Discharge)
Date of Disposition: 04/02/23
Time of Disposition: 20:27
Patient with high blood pressure during this ER visit?: No
Condition: Fair
Discharge Problem:
Intentional overdose
Instructions: Accidental Overdose, Adult ED, Acute Diarrhea
Prescriptions:
No Action
ascorbic acid (vitamin C) [Vitamin C] 500 mg Tablet
500 mg PO DAILY
escitalopram oxalate 10 mg tablet
10 mg PO DAILY
Hold Instructions: Resume on 07/04/23. Only resume if any only if your outpatient providers say you should resume this medication.
ezetimibe 10 mg tablet
10 mg PO DAILY
albuterol sulfate [ProAir HFA] 90 mcg/actuation HFA aerosol inhaler
2 puff inhalation R Q4HPRN PRN (Reason: shortness of breath)
cyanocobalamin (vitamin B-12) 1,000 mcg Tablet
1,000 mcg PO DAILY
levothyroxine 112 mcg Tablet
112 mcg PO DAILY@0700 Qty: 30 0RF
Hold Instructions: Resume on 03/28/23.
guaifenesin 600 mg tablet extended release 12hr
600 mg PO Q12H
Referrals:
Marlon Mina DO [Family Provider] -
Activity Restrictions/Additional Instructions:
You will have diarrhea for a couple days. Drink plenty of fluids to stay hydrated
Interventions
Interventions:
*Risk Screen - Suicide Last Done: 04/02/23 12:43
*General Assessment Last Done: 04/02/23 12:43
*Neglect/Abuse Screening Last Done: 04/02/23 12:43
ED- Fall Risk Assessment Last Done: 04/02/23 17:06
*ED COVID-19 Vaccine History Last Done: 04/02/23 12:43
ED- Cardiac Assessment Last Done: 04/02/23 17:06
ED- Neurological Assessment Last Done: 04/02/23 17:06
ED-Psychological Assessment Last Done: 04/02/23 17:06
ED- Pulmonary Assessment Last Done: 04/02/23 17:06
[2023-04-02] MEDS: NSS 500 IV (16:39)
[2023-04-02 16:49] LABS: % Basophils 1.7 % (0-2); % Eosinophils 1.7 % (0-6); % Immature Granulocytes 0.4 % (0-0.5); % Monocytes 7.4 % (1.7-9.3); % Neutrophils 70.8 % (42.2-75.2); Absolute Basophils 0.1 10^3/uL (0-0.2); Absolute Eosinophils 0.1 10^3/uL (0-0.7); Absolute Monocytes 0.4 10^3/uL (0.1-0.6); Absolute Neutrophils 3.9 10^3/uL (1.4-6.5); Hematocrit 50.5 % (37.0-47.0); Hemoglobin 16.3 g/dL (12.0-16.0); Mean Corp Hgb Conc. 32.3 g/dL (33.0-37.0); Mean Corpuscular Hgb 29.3 pg (27.0-31.0); Mean Corpuscular Volume 90.7 fL (81.0-99.0); Mean Platelet Volume 9.9 fL (7.4-10.4); Nucleated Red Blood Cells % 0 %; Platelet Count 267 10^3/uL (130-400); Red Blood Cell Count 5.57 10^6/uL (4.20-5.40); Red Cell Dist. Width 18.5 % (11.5-14.5); White Blood Cell Count 5.4 10^3/uL (4.8-10.8)
--- NOTE | 2023-04-02 17:37 | PHANOTE ---
Med Rec Note:
Home med list compiled from Dr Smith and Discharge on 03/15/23.
[2023-04-02 18:31] LABS: ALT (SGPT) 77 U/L (0-35); AST (SGOT) 38 U/L (14-36); Acetaminophen < 10 ug/ml (10-30); Alkaline Phosphatase 87 U/L (38-126); Blood Urea Nitrogen 13 mg/dl (7-17); Calcium 9.1 mg/dl (8.4-10.2); Carbon Dioxide 25 mmol/L (22-30); Chloride 107 mmol/L (98-107); Glucose 102 mg/dl (70-99); Potassium 3.9 mmol/L (3.5-5.1); Salicylate < 1.0 mg/dl (2.0-20.0); Sodium 138 mmol/L (135-145); Total Bilirubin 0.7 mg/dl (0.2-1.3); Total Protein 6.9 g/dl (6.3-8.2); eGFR > 60.00
[2023-04-02 18:34] LABS: Alcohol None Detected
== END 2023-04-02 23:45 | disposition home or self-care (01) ==
LOC: EMR 12:40
PROVIDERS: EMERGENCY PHYSICIAN Emergency Medicine; FAMILY PHYSICIAN Family Medicine
DX: T47.4X2A Poisoning by other laxatives, intentional self-harm, initial encounter (principal); R62.50 Unspecified lack of expected normal physiological development in childhood
CPT/HCPCS: 99284; 96360; 96361; 80053; 80143; 80179; 82077; 85025; 93005

== ENCOUNTER → 2023-05-29 09:05 | Outpatient (REF) | payer OTHER, MEDICAID, SELFPAY | LOC: HWWDC 09:05 | PROVIDERS: ATTENDING PHYSICIAN Family Medicine; REFERRING PHYSICIAN Nurse Practitioner Adult Health | DX: Z12.31 Encounter for screening mammogram for malignant neoplasm of breast (principal) | CPT/HCPCS: 77063; 77067 ==

== ENCOUNTER 2023-07-13 11:40 | Emergency (ER) | payer OTHER, MEDICAID, SELFPAY ==
[2023-07-13] VITALS (7 sets, daily range): BP systolic 93–107; BP diastolic 68–76; BMI 43.2
--- NOTE | 2023-07-13 11:43 | ED.GENMED ---
History of Present Illness
General
Chief Complaint: Chest Pain
Time Seen by Provider: 07/13/23 11:43
History of Present Illness
History of Present Illness:
HPI: Patient came in by ambulance�I spoke to EMS for history. The patient lives with father, father called EMS because of chest pain, coughing, URI symptoms. One of the patient's main symptom is cough. The patient states that the symptoms started
earlier this morning. EMS notes a room air sat as low as 88%. She was given supplemental oxygen prior to arrival however upon my initial evaluation her room air sats are 95%.
EXAM:
GENERAL: Well appearing in no distress, she is slightly hypotensive but has been hypotensive in the past
HEENT: Moist oral mucosa
CARDIOVASCULAR: No murmurs, normal heart rate, regular rhythm, No chest wall tenderness
PULMONARY: No respiratory distress, breath sounds are somewhat coarse bilaterally
ABDOMEN: Soft with no peritoneal signs, no tenderness
NEUROLOGIC: Good strength all extremities, no coordination deficits
PSYCHIATRIC: Appropriate mental status, normal insight and judgement
EXTREMITIES: Nontender, no edema, moves all extremities equally
SKIN: No rash, no lesions
TIME OF INITIAL ENCOUNTER: 12 PM
NUMBER AND COMPLEXITY OF PROBLEMS ADDRESSED AT THE ENCOUNTER
� Chronic conditions affecting care: Developmental delay, congenital heart disease, prediabetes, hypothyroidism
� Acute Exacerbation and/or Progression of Chronic Illness: This is an acute but recurring problem
� Differential Diagnosis includes: Viral URI, bronchitis, pneumonia, ACS unlikely
AMOUNT AND/OR COMPLEXITY OF DATA TO BE REVIEWED AND ANALYZED
� I performed an independent evaluation of and my interpretation is:
EKG: Sinus 61, rightward axis deviation, RSR' pattern, no significant change from 04/02/2023
CT:
X-rays: Chest x-ray personally reviewed, radiologist suspects possible increasing edema; no clear evidence for pneumonia
Laboratory Studies: White count is normal, hemoglobin normal, chemistries unremarkable, troponin negative, flu/COVID-negative, BNP very low
Other:
� Review of other/old records: I reviewed records, the patient was seen by crisis as a 201;
� Clinical information was obtained by an independent historian: I spoke to EMS
� Prescriptions/Medications Considered but not given:
� Further testing considered but not performed:
RISK OF COMPLICATIONS AND/OR MORBIDITY OR MORTALITY OF PATIENT MANAGEMENT
� Social determinants of health affecting care: Lives with father at home
� Discussion with other providers:
� Escalation of care including admission/observation vs risk of discharge considered: Although patient was reportedly hypoxic for EMS, her room air sats upon arrival are 95% with a good waveform. She does not appear to be in any
significant distress. She has had several ED visits related to syncope in the past. Although chest x-ray was concerning to the radiologist that there could be some interval development of pulmonary edema, the BNP is only 33, suspect more of an
infectious etiology such as viral bronchitis. On reassessment, the nurses reported she did desat into the 80% however with a very good waveform on reassessment after nebs and steroids given, room air sat has been 96%. Suspect viral bronchitis.
Blood pressure slightly low however it is documented that she has had low blood pressure readings in the past.
Past History
Past History
ED Past Medical History: Hypothyroidism, Psychiatric (Depression, ), Other (PNA, ) and Other (Down syndrome, pulmonary hypertension, SOPHY with CPAP, morbid obesity, )
ED Past Surgical History: Cardiac ([employer] Loop Recorder), Orthopedic (Left leg surgery), Tonsilectomy and Other (heart valve surgery as infant)
Social History
Tobacco: Non-smoker
Alcohol: None
Drug: None
Personal: Single
Living: with family
Employment: Employed
Phy Exam
Physical Exam
Physical Exam:
See HPI
Scores
Heart Score for Chest Pain Patients
STEMI patient?: Not applicable
Course
Orders/Labs/Results
Orders:
Orders
07/13/23 11:51
EKG [Electrocardiogram (*1)] Urgent
Reason for Study: Chest Pain
07/13/23 11:52
EKG- Treatment ONCE
07/13/23 11:53
CXR2 [CR Chest - 2 Views ] Urgent
Comment:
Reason For Exam: chest pain
07/13/23 11:55
0.9% Sodium Chloride 1000 ml [Nss] 1,000 ml IV BOLUS
Ipratropium/Albuterol Sulfate [Duoneb] 3 ml INH R NOW ONE
07/13/23 12:15
COVID-19 Antigen Urgent
Source: Nasal Swab
Complete Blood Count/No Diff Urgent
Influenza A+B Rapid Molecular Urgent
APOLLO Source: Nasal Swab
Specimen Description:
07/13/23 12:54
Comprehensive Metabolic Panel Urgent
NT-proBNP Urgent
Comment: ADD ON
Troponin I Urgent
07/13/23 13:11
Add On- LAB Urgent
Tests Added?: bnp
07/13/23 15:15
Ipratropium/Albuterol Sulfate [Duoneb] 3 ml INH R NOW ONE
MethylPREDNISolone PF [Solu-Medrol Pf] 125 mg IV NOW STA
Abnormal Lab Results
07/13/23 07/13/23
12:15 12:54
MCHC 32.2 L g/dL
(33.0-37.0)
RDW 15.9 H %
(11.5-14.5)
BUN 22 H mg/dl
(7-17)
Glucose 109 H mg/dl
(70-99)
Total Protein 6.1 L g/dl
(6.3-8.2)
Albumin 3.2 L g/dl
(3.5-5.0)
07/13/23 12:15
07/13/23 12:54
Vital Signs
Initial and Last Documented VS:
Initial Vital Signs
Pulse Resp BP
68 16 99/68
07/13/23 11:46 07/13/23 11:46 07/13/23 11:46
Last Documented Vital Signs
Temp Pulse Resp BP Pulse Ox
98.3 F 75 17 101/68 92
07/13/23 11:52 07/13/23 15:00 07/13/23 15:00 07/13/23 15:00 07/13/23 15:00
*Critical Care Note
Total Time (30-74mins, 75-104mins- exclusive of procedures): Not Applicable
ED Attending Note
-
Portions of this chart may have been created with voice recognition software.� Occasional wrong word or��sound alike� substitutions may have occurred due to the inherent limitations of voice recognition software.
Discharge Plan
Departure
Patient Disposition: Home (Routine Discharge)
Date of Disposition: 07/13/23
Time of Disposition: 15:44
Patient with high blood pressure during this ER visit?: No
Discharge Problem:
Bronchitis
Instructions: Bronchitis, Adult ED
Prescriptions:
New
albuterol sulfate 90 mcg/actuation HFA aerosol inhaler
2 puff inhalation Q6H PRN (Reason: shortness of breath or wheezing) Qty: 8.5 0RF
prednisone 50 mg tablet
50 mg PO DAILY Qty: 4 0RF
No Action
ascorbic acid (vitamin C) [Vitamin C] 500 mg Tablet
500 mg PO DAILY
escitalopram oxalate 10 mg tablet
10 mg PO DAILY
Hold Instructions: Resume on 07/04/23. Only resume if any only if your outpatient providers say you should resume this medication.
ezetimibe 10 mg tablet
10 mg PO DAILY
albuterol sulfate [ProAir HFA] 90 mcg/actuation HFA aerosol inhaler
2 puff inhalation R Q4HPRN PRN (Reason: shortness of breath)
cyanocobalamin (vitamin B-12) 1,000 mcg Tablet
1,000 mcg PO DAILY
levothyroxine 112 mcg Tablet
112 mcg PO DAILY@0700 Qty: 30 0RF
Hold Instructions: Resume on 03/28/23.
guaifenesin 600 mg tablet extended release 12hr
600 mg PO Q12H
Referrals:
UNKNOWN - PT DOES,NOT KNOW [Family Provider] -
Activity Restrictions/Additional Instructions:
Chest x-ray showed no sign of pneumonia but the radiologist thought there could be some 'cardiogenic pulmonary edema' however the blood test for this called a BNP level was normal. We gave steroids and breathing treatments. I sent prescription for
steroids and albuterol to your pharmacy. Return here if worse. Cardiac blood work and EKG are unremarkable.
Interventions
Interventions:
*Risk Screen - Suicide Last Done: 07/13/23 11:59
*General Assessment Last Done: 07/13/23 11:59
*Neglect/Abuse Screening Last Done: 07/13/23 11:59
ED- Fall Risk Assessment Last Done: 07/13/23 11:59
*ED COVID-19 Vaccine History Last Done: 07/13/23 11:58
ED- Cardiac Assessment Last Done: 07/13/23 12:55
Discharge Date and Time
Print Language: ALGERIAN
[2023-07-13] MEDS: NSS 1000 IV (12:12)
[2023-07-13] MEDS: DUONEB 3 ML INH ×2 (12:16→15:18)
[2023-07-13 12:32] LABS: Hemoglobin 13.2 g/dL (12.0-16.0); Mean Corp Hgb Conc. 32.2 g/dL (33.0-37.0); Mean Corpuscular Hgb 30.2 pg (27.0-31.0); Mean Corpuscular Volume 93.8 fL (81.0-99.0); Mean Platelet Volume 9.5 fL (7.4-10.4); Platelet Count 198 10^3/uL (130-400); Red Blood Cell Count 4.37 10^6/uL (4.20-5.40); Red Cell Dist. Width 15.9 % (11.5-14.5); White Blood Cell Count 5.4 10^3/uL (4.8-10.8)
[2023-07-13 12:46] LABS: COVID-19 Antigen Negative (Negative)
[2023-07-13 13:19] LABS: ALT (SGPT) 16 U/L (0-35); AST (SGOT) 22 U/L (14-36); Albumin 3.2 g/dl (3.5-5.0); Alkaline Phosphatase 81 U/L (38-126); Blood Urea Nitrogen 22 mg/dl (7-17); Calcium 8.4 mg/dl (8.4-10.2); Carbon Dioxide 27 mmol/L (22-30); Chloride 107 mmol/L (98-107); Estimated Creatinine Clearance 102 ml/min; Glucose 109 mg/dl (70-99); Potassium 4.2 mmol/L (3.5-5.1); Sodium 139 mmol/L (135-145); Total Bilirubin 0.5 mg/dl (0.2-1.3); Total Protein 6.1 g/dl (6.3-8.2); eGFR > 60.00
[2023-07-13 13:29] LABS: Troponin I < 0.012 ng/ml
[2023-07-13 13:47] LABS: NT-proBNP 33.7 pg/ml
[2023-07-13] MEDS: SOLU-MEDROL PF 125 MG IV (15:18)
== END 2023-07-13 16:49 | disposition home or self-care (01) ==
LOC: EMR 11:40
PROVIDERS: EMERGENCY PHYSICIAN Emergency Medicine
DX: J40 Bronchitis, not specified as acute or chronic (principal)
CPT/HCPCS: 99285; 96374; 96361; 94640; 71046; 80053; 83880; 84484; 85027; 87502; 87811; 93005

== ENCOUNTER 2023-07-21 09:46 | Emergency (ER) | payer OTHER, MEDICAID, SELFPAY ==
[2023-07-21 09:48] VITALS: BP 118/65; BMI 50.7
[2023-07-21 09:49] VITALS: BP 118/65
--- NOTE | 2023-07-21 09:52 | ED.GENMED ---
History of Present Illness
General
Chief Complaint: Breathing Problem
Source: patient
Exam Limitations: none
Time Seen by Provider: 07/21/23 09:50
Travel History
Have you had any contact with someone who has COVID-19?: No
Do you have any symptoms of coronavirus? Fever > 100 degrees, chills, cough, shortness of breath, sore throat, loss of taste or smell, muscle aches, or headache?: No
History of Present Illness
History of Present Illness:
See MDM
Past History
Past History
ED Past Medical History: Hypothyroidism, Psychiatric (Depression, ), Other (PNA, ) and Other (Down syndrome, pulmonary hypertension, SOPHY with CPAP, morbid obesity, )
ED Past Surgical History: Cardiac (Predect Loop Recorder), Orthopedic (Left leg surgery), Tonsilectomy and Other (heart valve surgery as infant)
Social History
Tobacco: Non-smoker
Alcohol: None
Drug: None
Personal: Single
Living: with family
Employment: Employed
Phy Exam
Physical Exam
Physical Exam:
See MDM
Scores
Heart Failure Risk
Heart Failure Risk Score: Yes
History of Stroke or TIA: No
History of intubation for respiratory distress: No
Heart rate on ED arrival >/= 110: No
SaO2 <90% on arrival on room air: No
HR >/=110 during 3min walk test (or too ill to perform test): No
ECG has acute ischemic changes: No
Urea >/=12mmol/L (BUN 33.6mg/dL): No
Serum CO2>/=35mmol/L: No
Troponin I or T elevated to SD Level (0.4mg/dL): No
NT-proBNP >/=5,000ng/L (5,000pg/ml): No
HF Risk Score: 0
Admission Status: LOW RISK 2.8% Consider discharge to home with f/u visit to PCP/Yoke Setter
Course
Orders/Labs/Results
Orders:
Orders
07/21/23 09:51
Electrocardiogram (*1) Urgent
Reason for Study: Shortness of Breath
EKG- Treatment ONCE
CR Chest - 2 Views Urgent
Comment:
Reason For Exam: SOB, cough
07/21/23 09:55
Complete Blood Count/With Diff Urgent
NT-proBNP Urgent
Troponin I Urgent
07/21/23 10:22
Comprehensive Metabolic Panel Urgent
07/21/23 12:54
Furosemide [Lasix] 20 mg PO NOW STA
Abnormal Lab Results
07/21/23 07/21/23
09:55 10:22
RDW 16.2 H %
(11.5-14.5)
Abs Immat Gran (auto) 0.1 H 10^3/uL
(0-0.05)
Absolute Lymphs (auto) 0.7 L 10^3/uL
(1.2-3.4)
Immature Gran % 0.9 H %
(0-0.5)
Neutrophils % 76.1 H %
(42.2-75.2)
Lymphocytes % 10.7 L %
(20.5-51.1)
Carbon Dioxide 31 H mmol/L
(22-30)
BUN 26 H mg/dl
(7-17)
Glucose 116 H mg/dl
(70-99)
Albumin 3.4 L g/dl
(3.5-5.0)
07/21/23 09:55
07/21/23 10:22
Vital Signs
Initial and Last Documented VS:
Initial Vital Signs
Temp Pulse Resp BP Pulse Ox
97.8 F 62 20 118/65 98
07/21/23 09:48 07/21/23 09:48 07/21/23 09:48 07/21/23 09:48 07/21/23 09:48
Last Documented Vital Signs
Temp Pulse Resp BP Pulse Ox
97.8 F 72 20 149/100 96
07/21/23 09:48 07/21/23 13:30 07/21/23 13:30 07/21/23 13:01 07/21/23 10:00
MDM/Problems Addressed
Differential Diagnosis Includes:
HPI and MDM Narrative:
48-year-old female presenting with shortness of breath. EMS were called to her house because her father was having trouble getting her off the ground. Patient admits that she laid on the ground because she was having trouble breathing. When EMS
arrived, patient quickly got up and walked to the stretcher. EMS states that this is common to be called at her house and to see her lying on the floor. She does have a history of Down syndrome and cognitive impairment. Patient planing of mild
shortness of breath and cough. EMS seen that she recently finished a steroid pack for bronchitis
I did notice that her legs are edematous. Does appear to be nonpitting and likely chronic. Given her shortness of breath and leg swelling, will obtain basic blood work, chest x-ray and BNP
Physical exam
General: Well appearing and non-toxic
HEENT: protecting airway
Neck: appears supple
CV: No evidence of cyanosis. Regular rate and rhythm
Resp: No accessory muscle use. Lungs clear
Abd: Non-distended
Extremities: Nonpitting edema bilateral lower extremities
Neuro: alert
Psych: Flat affect
Skin: Intact
Problems Addressed including Acute and Chronic Conditions affecting care:
1. Shortness of breath
Acuity: acute
Prognosis: stable
Details: Will obtain basic blood work and chest x-ray
Updates
Chest x-ray shows mild CHF. Will start Lasix. Throughout her stay, patient has no more complaints and is sitting in bed comfortably and eating.
Differential Diagnosis (but not limited to): Pneumonia, CHF, viral syndrome
Testing considered: CT PE
Drug therapy (if applicable): OTC meds, please see d/c instruction regarding Rx drugs
Amount and/or Complexity of Data Reviewed
Clinical info obtained from: Patient
External data reviewed: N/A
Labs I independently reviewed (but not limited to): Troponin and BNP within normal limits
Radiology: X-ray independently reviewed: Chest x-ray shows mild pulmonary edema
Pulse Ox: not hypoxic
EKG independently reviewed: sinus rhythm, normal axis, no STEMI
Ash Kier Boiler: Sinus rhythm
Critical Care: N/A
Risk of Complication:
Social Determinants of health: Good social support
Discussed with other providers: N/A
Escalation of Care includes Admit/Obs: After being observed in the Emergency Department, pt stable for discharge.
Occasional wrong word or 'sound a like' substitutions may have occurred due to the inherent limitations of voice recognition software. Read the chart carefully and recognize, using context, where substitutions have occurred.
*Critical Care Note
Total Time (30-74mins, 75-104mins- exclusive of procedures): Not Applicable
ED Attending Note
-
Portions of this chart may have been created with voice recognition software.� Occasional wrong word or��sound alike� substitutions may have occurred due to the inherent limitations of voice recognition software.
Discharge Plan
Departure
Patient Disposition: Home (Routine Discharge)
Date of Disposition: 07/21/23
Time of Disposition: 13:00
Patient with high blood pressure during this ER visit?: No
Discharge Problem:
CHF exacerbation
Instructions: *[facility] Heart Failure Instructions
Prescriptions:
New
furosemide [Lasix] 20 mg tablet
20 mg PO DAILY Qty: 5 0RF
No Action
ascorbic acid (vitamin C) [Vitamin C] 500 mg Tablet
500 mg PO DAILY
escitalopram oxalate 10 mg tablet
10 mg PO DAILY
Hold Instructions: Resume on 07/04/23. Only resume if any only if your outpatient providers say you should resume this medication.
ezetimibe 10 mg tablet
10 mg PO DAILY
albuterol sulfate [ProAir HFA] 90 mcg/actuation HFA aerosol inhaler
2 puff inhalation R Q4HPRN PRN (Reason: shortness of breath)
cyanocobalamin (vitamin B-12) 1,000 mcg Tablet
1,000 mcg PO DAILY
levothyroxine 112 mcg Tablet
112 mcg PO DAILY@0700 Qty: 30 0RF
Hold Instructions: Resume on 03/28/23.
guaifenesin 600 mg tablet extended release 12hr
600 mg PO Q12H
albuterol sulfate 90 mcg/actuation HFA aerosol inhaler
2 puff inhalation Q6H PRN (Reason: shortness of breath or wheezing) Qty: 8.5 0RF
prednisone 50 mg tablet
50 mg PO DAILY Qty: 4 0RF
Referrals:
Marlon Mina DO [Family Provider] -
Activity Restrictions/Additional Instructions:
Please return for any worsening symptoms.
You may return at any time if you have further concerns.
Please keep your doctors appointment tomorrow.
Thank you for choosing [facility].
Interventions
Interventions:
*Risk Screen - Suicide Last Done: 07/21/23 09:48
*General Assessment Last Done: 07/21/23 09:48
*Neglect/Abuse Screening Last Done: 07/21/23 09:48
ED- Fall Risk Assessment Last Done: 07/21/23 09:48
*ED COVID-19 Vaccine History Last Done: 07/21/23 09:48
*Nursing Disposition Last Done: 07/21/23 13:55
ED- Cardiac Assessment Last Done: 07/21/23 09:48
ED- Pulmonary Assessment Last Done: 07/21/23 09:48
Discharge Date and Time
Discharge Date/Time: 07/21/23 13:55
Print Language: SLOVENIAN
[2023-07-21 10:00] VITALS: BP 107/56
[2023-07-21 10:06] LABS: % Basophils 0.7 % (0-2); % Immature Granulocytes 0.9 % (0-0.5); % Lymphocytes 10.7 % (20.5-51.1); % Monocytes 8.6 % (1.7-9.3); % Neutrophils 76.1 % (42.2-75.2); Absolute Basophils 0.1 10^3/uL (0-0.2); Absolute Eosinophils 0.2 10^3/uL (0-0.7); Absolute Immature Granulocytes 0.1 10^3/uL (0-0.05); Absolute Lymphocytes 0.7 10^3/uL (1.2-3.4); Absolute Monocytes 0.6 10^3/uL (0.1-0.6); Absolute Neutrophils 5.2 10^3/uL (1.4-6.5); Hematocrit 44.6 % (37.0-47.0); Hemoglobin 14.7 g/dL (12.0-16.0); Mean Corpuscular Hgb 30.1 pg (27.0-31.0); Mean Corpuscular Volume 91.2 fL (81.0-99.0); Nucleated Red Blood Cells % 0 %; Platelet Count 219 10^3/uL (130-400); Red Blood Cell Count 4.89 10^6/uL (4.20-5.40); Red Cell Dist. Width 16.2 % (11.5-14.5); White Blood Cell Count 6.9 10^3/uL (4.8-10.8)
[2023-07-21 10:29] LABS: NT-proBNP < 20.0 pg/ml; Troponin I < 0.012 ng/ml
[2023-07-21 11:00] VITALS: BP 122/84
[2023-07-21 11:21] LABS: ALT (SGPT) 21 U/L (0-35); AST (SGOT) 22 U/L (14-36); Albumin 3.4 g/dl (3.5-5.0); Alkaline Phosphatase 74 U/L (38-126); Blood Urea Nitrogen 26 mg/dl (7-17); Calcium 8.4 mg/dl (8.4-10.2); Carbon Dioxide 31 mmol/L (22-30); Chloride 101 mmol/L (98-107); Estimated Creatinine Clearance 81 ml/min; Glucose 116 mg/dl (70-99); Potassium 4.3 mmol/L (3.5-5.1); Sodium 138 mmol/L (135-145); Total Bilirubin 0.6 mg/dl (0.2-1.3); Total Protein 6.3 g/dl (6.3-8.2); eGFR > 60.00
[2023-07-21 12:00] VITALS: BP 102/71
[2023-07-21 13:01] VITALS: BP 149/100
[2023-07-21] MEDS: LASIX 20 MG PO (13:40)
== END 2023-07-21 13:55 | disposition home or self-care (01) ==
LOC: EMR 09:46
PROVIDERS: EMERGENCY PHYSICIAN Student in an Organized Health Care Education/Training Program; FAMILY PHYSICIAN Family Medicine
DX: I50.9 Heart failure, unspecified (principal); E03.9 Hypothyroidism, unspecified; E66.01 Morbid (severe) obesity due to excess calories; F32.A Depression, unspecified; G47.33 Obstructive sleep apnea (adult) (pediatric); I27.20 Pulmonary hypertension, unspecified; Q90.9 Down syndrome, unspecified
CPT/HCPCS: 99283; 71046; 80053; 83880; 84484; 85025; 93005

== ENCOUNTER 2023-07-22 14:48 | Emergency (ER) | payer OTHER, MEDICAID, SELFPAY ==
[2023-07-22] VITALS (7 sets, daily range): BP systolic 96–128; BP diastolic 61–94; BMI 50.5
[2023-07-22 15:14] LABS: % Basophils 0.8 % (0-2); % Immature Granulocytes 0.8 % (0-0.5); % Lymphocytes 9.5 % (20.5-51.1); % Monocytes 6.4 % (1.7-9.3); % Neutrophils 79.5 % (42.2-75.2); Absolute Basophils 0.1 10^3/uL (0-0.2); Absolute Eosinophils 0.2 10^3/uL (0-0.7); Absolute Immature Granulocytes 0.1 10^3/uL (0-0.05); Absolute Lymphocytes 0.7 10^3/uL (1.2-3.4); Absolute Monocytes 0.5 10^3/uL (0.1-0.6); Absolute Neutrophils 5.9 10^3/uL (1.4-6.5); Hematocrit 47.1 % (37.0-47.0); Mean Corp Hgb Conc. 31.8 g/dL (33.0-37.0); Mean Corpuscular Volume 94.2 fL (81.0-99.0); Mean Platelet Volume 9.4 fL (7.4-10.4); Nucleated Red Blood Cells % 0 %; Platelet Count 208 10^3/uL (130-400); Red Cell Dist. Width 15.8 % (11.5-14.5); White Blood Cell Count 7.5 10^3/uL (4.8-10.8)
--- NOTE | 2023-07-22 15:28 | CM ---
Addendum entered by Divina Allison RN 07/22/23 16:45:
CM spoke with Megha from Crisis to collaborate on discharge plan. Patient reportedly has had another attempt over the weekend and presented to [facility]. Patient was discharged. Patient also has been calling EMS multiple times over the weekend with
concern that EMS is not going to respond to her 911 calls.
CM advised that given her multiple suicide attempts and her complex medication needs patient is at very high risk for injury. Plan for crisis to call Adult Protective Services.
CM updated [facility] medical scientific liaison with new referral to assist with medication management for CHF and medication safety in the home.
Addendum entered by Divina Allison RN 07/22/23 16:04:
Cm spoke with Megha at crisis to offer any assistance.
Original Note:
CM reviewed medical records. Patient is well known to this CM. CM confirmed that [facility] is not currently in the home as patient was discharged on 04/24 from services.
Patient is followed by [facility].
[2023-07-22 15:39] LABS: ALT (SGPT) 19 U/L (0-35); AST (SGOT) 20 U/L (14-36); Albumin 3.6 g/dl (3.5-5.0); Alkaline Phosphatase 78 U/L (38-126); Blood Urea Nitrogen 20 mg/dl (7-17); Calcium 8.8 mg/dl (8.4-10.2); Carbon Dioxide 29 mmol/L (22-30); Chloride 99 mmol/L (98-107); Estimated Creatinine Clearance 81 ml/min; Glucose 118 mg/dl (70-99); Potassium 4.2 mmol/L (3.5-5.1); Sodium 135 mmol/L (135-145); Total Bilirubin 0.8 mg/dl (0.2-1.3); Total Protein 6.5 g/dl (6.3-8.2); eGFR > 60.00
--- NOTE | 2023-07-22 15:47 | ED.GENMED ---
History of Present Illness
General
Chief Complaint: Overdose Unintentional
Source: patient and family (Father)
Time Seen by Provider: 07/22/23 15:32
Travel History
Have you had any contact with someone who has COVID-19?: No
Do you have any symptoms of coronavirus? Fever > 100 degrees, chills, cough, shortness of breath, sore throat, loss of taste or smell, muscle aches, or headache?: No
History of Present Illness
History of Present Illness:
Patient told her father that she took her full bottle of levothyroxine and statin. 2 hours prior to ER arrival. No physical complaints. Father states she lies on the floor frequently somewhat and protest.
Past History
Past History
ED Past Medical History: Hypothyroidism, Psychiatric (Depression, ), Other (PNA, ) and Other (Down syndrome, pulmonary hypertension, SOPHY with CPAP, morbid obesity, )
ED Past Surgical History: Cardiac ([employer] Loop Recorder), Orthopedic (Left leg surgery), Tonsilectomy and Other (heart valve surgery as infant)
Social History
Tobacco: Non-smoker
Alcohol: None
Drug: None
Personal: Single
Living: with family
Employment: Employed
Review of Systems
Review of Systems
All Other Systems: Not applicable
Respiratory: Reports no symptoms
Cardiac: Reports no symptoms
ABD/GI: Reports no symptoms
Phy Exam
Physical Exam
Physical Exam:
GENERAL: Alert and oriented in no apparent distress
EYE: Orbits normal.
NECK: Supple, no significant adenopathy.
ENT: Pharynx without erythema. Mild facial sequelae of Down syndrome.
CARDIAC: Regular rate and rhythm without any obvious murmurs.
LUNGS: Clear breath sounds,normal
ABDOMEN: Soft, without focal tenderness or distention
NEUROLOGICAL: Alert and oriented , grossly non-focal
SKIN: Warm and dry, no rash or lesion, no discoloration, skin intact.
MUSCULOSKELETAL: No edema,no deformity.Good color
PSYCH: Normal and appropriate interaction.
Course
Orders/Labs/Results
Orders:
Orders
07/22/23 14:58
Acetaminophen Urgent
Comment: CPK,TSH REFLEX,ACETAMINOPHEN ADDED ON BY FLOOR 3:45PM 07-11-13
Complete Blood Count/With Diff Urgent
Comprehensive Metabolic Panel Urgent
Creatine Phosphokinase Urgent
Free T4 Urgent
Salicylate Urgent
Comment: ADD ON
TSH Reflex To Free T4 Urgent
07/22/23 15:41
Add On- LAB Urgent
Tests Added?: tsh reflex t4, aspirin,acetaminophen
07/22/23 15:48
Add On- LAB Urgent
Tests Added?: cpk
07/22/23 15:49
Crisis Consult Urgent
Reason for Consult: possible suicide ideation
Abnormal Lab Results
07/22/23
14:58
Hct 47.1 H %
(37.0-47.0)
MCHC 31.8 L g/dL
(33.0-37.0)
RDW 15.8 H %
(11.5-14.5)
Abs Immat Gran (auto) 0.1 H 10^3/uL
(0-0.05)
Absolute Lymphs (auto) 0.7 L 10^3/uL
(1.2-3.4)
Immature Gran % 0.8 H %
(0-0.5)
Neutrophils % 79.5 H %
(42.2-75.2)
Lymphocytes % 9.5 L %
(20.5-51.1)
BUN 20 H mg/dl
(7-17)
Glucose 118 H mg/dl
(70-99)
TSH (Reflex) 12.00 H uIU/ml
(0.47-4.68)
Free T4 4.20 H ng/dl
(0.78-2.19)
Salicylates < 1.0 L mg/dl
(2.0-20.0)
Acetaminophen < 10 L ug/ml
(10-30)
07/22/23 14:58
07/22/23 14:58
Vital Signs
Initial and Last Documented VS:
Initial Vital Signs
Temp Pulse Resp BP Pulse Ox
98.4 F 68 17 128/94 99
07/22/23 14:49 07/22/23 14:49 07/22/23 14:49 07/22/23 14:49 07/22/23 14:49
Last Documented Vital Signs
Temp Pulse Resp BP Pulse Ox
98.4 F 64 21 102/62 96
07/22/23 14:49 07/22/23 19:38 07/22/23 18:15 07/22/23 19:38 07/22/23 18:15
*Spool Salvager Interpretation
Rate: normal
Interpretation: normal
Heart Rate: 70
Rhythm: sinus
*Critical Care Note
Total Time (30-74mins, 75-104mins- exclusive of procedures): Not Applicable
Data Reviewed
Review of Other/Old Records Reveals: Labs and Records
Update Note
Update Note:
Poison control was discussed. No decontamination. No acute treatment for the Crestor. Thyroid will need to be rechecked in 5 days.
1909... Patient rechecked multiple times. Has remained very stable and totally asymptomatic. Stable vital signs. I again had discussed with poison control. Who felt a 3 to 4-hour observation was reasonable. Seen by crisis. No indication for
psychiatric admission. If patient has been taking her daily Synthroid she would have actually had none of the bottle. The Crestor was recently filled. This was not done as a suicide attempt.
ED Attending Note
-
Portions of this chart may have been created with voice recognition software.� Occasional wrong word or��sound alike� substitutions may have occurred due to the inherent limitations of voice recognition software.
Discharge Plan
Departure
Patient Disposition: Home (Routine Discharge)
Date of Disposition: 07/22/23
Time of Disposition: 19:05
Patient with high blood pressure during this ER visit?: No
Discharge Problem:
Crestor/Synthroid ingestion
Instructions: Accidental Overdose (DC)
Prescriptions:
No Action
ascorbic acid (vitamin C) [Vitamin C] 500 mg Tablet
500 mg PO DAILY
escitalopram oxalate 10 mg tablet
10 mg PO DAILY
Hold Instructions: Resume on 07/04/23. Only resume if any only if your outpatient providers say you should resume this medication.
ezetimibe 10 mg tablet
10 mg PO DAILY
albuterol sulfate [ProAir HFA] 90 mcg/actuation HFA aerosol inhaler
2 puff inhalation R Q4HPRN PRN (Reason: shortness of breath)
cyanocobalamin (vitamin B-12) 1,000 mcg Tablet
1,000 mcg PO DAILY
levothyroxine 112 mcg Tablet
112 mcg PO DAILY@0700 Qty: 30 0RF
Hold Instructions: Resume on 03/28/23.
guaifenesin 600 mg tablet extended release 12hr
600 mg PO Q12H
albuterol sulfate 90 mcg/actuation HFA aerosol inhaler
2 puff inhalation Q6H PRN (Reason: shortness of breath or wheezing) Qty: 8.5 0RF
prednisone 50 mg tablet
50 mg PO DAILY Qty: 4 0RF
furosemide [Lasix] 20 mg tablet
20 mg PO DAILY Qty: 5 0RF
Referrals:
UNKNOWN,NO INTERVIEW [Family Provider] -
Activity Restrictions/Additional Instructions:
Follow-up with your physician in 2 to 3 days
Repeat thyroid levels in 5 days.
Interventions
Interventions:
*Risk Screen - Suicide Last Done: 07/22/23 14:53
*General Assessment Last Done: 07/22/23 18:07
*Neglect/Abuse Screening Last Done: 07/22/23 14:53
ED- Fall Risk Assessment Last Done: 07/22/23 18:07
*ED COVID-19 Vaccine History Last Done: 07/22/23 14:53
*Nursing Disposition Last Done: 07/22/23 19:38
ED- Cardiac Assessment Last Done: 07/22/23 15:00
ED- Neurological Assessment Last Done: 07/22/23 15:00
ED-Psychological Assessment Last Done: 07/22/23 15:00
ED- Pulmonary Assessment Last Done: 07/22/23 15:00
Discharge Date and Time
Discharge Date/Time: 07/22/23 19:47
Print Language: JAMA[place]
[2023-07-22 16:41] LABS: Acetaminophen < 10 ug/ml (10-30); Creatine Phosphokinase 38 U/L (30-135); Salicylate < 1.0 mg/dl (2.0-20.0)
--- NOTE | 2023-07-23 10:34 | VNURNOTE ---
[facility] referral completed in [facility] after review of chart.
== END 2023-07-22 19:47 | disposition home or self-care (01) ==
LOC: EMR 14:48
PROVIDERS: Emergency Medicine; EMERGENCY PHYSICIAN Emergency Medicine
DX: T38.1X1A Poisoning by thyroid hormones and substitutes, accidental (unintentional), initial encounter (principal); T46.6X1A Poisoning by antihyperlipidemic and antiarteriosclerotic drugs, accidental (unintentional), initial encounter; Q90.9 Down syndrome, unspecified; F32.A Depression, unspecified; E03.9 Hypothyroidism, unspecified; I27.20 Pulmonary hypertension, unspecified; G47.33 Obstructive sleep apnea (adult) (pediatric); E66.01 Morbid (severe) obesity due to excess calories; Z87.01 Personal history of pneumonia (recurrent); Z88.0 Allergy status to penicillin
CPT/HCPCS: 99283; 80053; 80143; 80179; 82550; 84439; 84443; 85025

== ENCOUNTER 2023-08-23 13:49 | Emergency (ER) | payer OTHER, MEDICAID, SELFPAY ==
[2023-08-23 13:54] VITALS: BP 103/60
[2023-08-23 16:10] VITALS: BP 108/61; BP 109/62; BP 112/58; PULSE 52; PULSE 55; PULSE 58
--- NOTE | 2023-08-23 16:21 | ED.GENMED ---
History of Present Illness
General
Chief Complaint: Fainting/Passed Out
Source: patient, records and family
Exam Limitations: developmental stage
Time Seen by Provider: 08/23/23 14:55
Nursing documentation reviewed up to this point in time: agreed with
History of Present Illness
History of Present Illness:
Patient is a 48-year-old female with a history of trisomy 21 who reportedly had a syncopal episode at home. Patient was here yesterday for possible medical overdose. According to the patient's father she was outside working in the yard and he
spoke harshly to her and she threw herself on the ground and then called 911 Saint she had passed out. Patient did not pass out. Patient denies headache or neck pain. Patient admits to sharp chest pain but no shortness of breath or diaphoresis.
Patient denies any extremity pain. Patient denies any GI symptoms.
Past History
Past History
ED Past Medical History: Hypothyroidism, Psychiatric (Depression, ), Other (PNA, ) and Other (Down syndrome, pulmonary hypertension, SOPHY with CPAP, morbid obesity, )
ED Past Surgical History: Cardiac ([employer] Loop Recorder), Orthopedic (Left leg surgery), Tonsilectomy and Other (heart valve surgery as )
Social History
Tobacco: Non-smoker
Alcohol: None
Drug: None
Personal: Single
Living: with family
Employment: Employed
Review of Systems
Review of Systems
All Other Systems: ROS reviewed and negative except as documented in HPI and ROS
Constitutional: Reports no symptoms
EENT: Reports no symptoms
Respiratory: Reports no symptoms
Cardiac: Reports chest pain and syncope; Denies diaphoresis or palpitations
ABD/GI: Reports no symptoms
: Reports no symptoms
Musculoskeletal: Reports no symptoms
Skin: Reports no symptoms
Neurological: Reports no symptoms
Hematologic/Lymphatic: Reports no symptoms
Phy Exam
Physical Exam
Physical Exam:
Physical Exam
General: No apparent distress, alert and appropriate, well nourished, well hydrated
HENT: Normocephalic and atraumatic, supple with no lymphadenopathy, no thyromegaly
Eyes: Clear sclera, conjuctiva without injection
Heart: Regular rhythm and rate. No S3, S4. No murmur. No NVD. Distant heart sounds
Lungs: No respiratory distress, no stridor, lung sounds clear and equal bilaterally, chest wall symmetrical and mildly reproducible tenderness without deformity, crepitus or subcutaneous emphysema
Abdomen: Soft, nontender, no organomegaly, no CVA tenderness, BS good
Neuro: Alert and usual mental status, CN II - XII intact, no motor focality, no cerebellar dysfunction
Skin: no rash or wounds
Psychiatric: well kept. interactive and cooperative
Extremities: No edema, cyanosis, tenderness, Good and equal peripheral pulses.
Musculoskeletal: No cervical, thoracic or lumbar spine tenderness
Course
Vital Signs
Initial and Last Documented VS:
Initial Vital Signs
Temp Pulse Resp BP Pulse Ox
99.5 F 64 18 103/60 91
08/23/23 13:54 08/23/23 13:54 08/23/23 13:54 08/23/23 13:54 08/23/23 13:54
Last Documented Vital Signs
Temp Pulse Resp BP Pulse Ox
99.5 F 58 20 103/60 91
08/23/23 13:54 08/23/23 15:45 08/23/23 15:45 08/23/23 13:54 08/23/23 13:54
*Radiology
Radiology exam reviewed: other (na)
*Pulse Oximetry
Patient hypoxic: no
*EKG
Interpreted by ED Provider?: NA
*Architectural Renderer Interpretation
Rate: normal
Interpretation: normal
Heart Rate: 64
Rhythm: sinus
*Critical Care Note
Total Time (30-74mins, 75-104mins- exclusive of procedures): Not Applicable
ED Attending Note
-
Portions of this chart may have been created with voice recognition software.� Occasional wrong word or��sound alike� substitutions may have occurred due to the inherent limitations of voice recognition software.
Discharge Plan
Departure
Patient Disposition: Home (Routine Discharge)
Date of Disposition: 08/23/23
Time of Disposition: 16:27
Patient with high blood pressure during this ER visit?: No
Condition: Good
Covid-19: Not Applicable
Discharge Problem:
Syncope
Instructions: Syncope (Fainting) (DC)
Prescriptions:
No Action
ascorbic acid (vitamin C) [Vitamin C] 500 mg Tablet
500 mg PO DAILY
escitalopram oxalate 10 mg tablet
10 mg PO DAILY
Hold Instructions: Resume on 07/04/23. Only resume if any only if your outpatient providers say you should resume this medication.
ezetimibe 10 mg tablet
10 mg PO DAILY
albuterol sulfate [ProAir HFA] 90 mcg/actuation HFA aerosol inhaler
2 puff inhalation R Q4HPRN PRN (Reason: shortness of breath)
cyanocobalamin (vitamin B-12) 1,000 mcg Tablet
1,000 mcg PO DAILY
levothyroxine 112 mcg Tablet
112 mcg PO DAILY@0700 Qty: 30 0RF
Hold Instructions: Resume on 03/28/23.
guaifenesin 600 mg tablet extended release 12hr
600 mg PO Q12H
albuterol sulfate 90 mcg/actuation HFA aerosol inhaler
2 puff inhalation Q6H PRN (Reason: shortness of breath or wheezing) Qty: 8.5 0RF
prednisone 50 mg tablet
50 mg PO DAILY Qty: 4 0RF
furosemide [Lasix] 20 mg tablet
20 mg PO DAILY Qty: 5 0RF
Referrals:
Marlon Mina DO [Family Provider] - As needed
Activity Restrictions/Additional Instructions:
Continue present medications and therapy.
Interventions
Interventions:
*Risk Screen - Suicide Last Done: 08/23/23 15:49
*General Assessment Last Done: 08/23/23 15:49
*Neglect/Abuse Screening Last Done: 08/23/23 15:49
ED- Fall Risk Assessment Last Done: 08/23/23 15:49
*ED COVID-19 Vaccine History Last Done: 08/23/23 15:49
ED- Cardiac Assessment Last Done: 08/23/23 15:49
ED- Neurological Assessment Last Done: 08/23/23 15:49
Discharge Date and Time
Print Language: TONGAN
== END 2023-08-23 16:30 | disposition home or self-care (01) ==
LOC: EMR 13:49
PROVIDERS: EMERGENCY PHYSICIAN Emergency Medicine; FAMILY PHYSICIAN Family Medicine
DX: R55 Syncope and collapse (principal); Q90.9 Down syndrome, unspecified
CPT/HCPCS: 99283

== ENCOUNTER 2023-09-15 10:40 | Emergency (ER) | payer OTHER, MEDICAID, SELFPAY ==
[2023-09-15 10:51] VITALS: BP 120/77
--- NOTE | 2023-09-15 10:59 | ED.GENMED ---
History of Present Illness
General
Chief Complaint: Cough
Source: patient and records
Time Seen by Provider: 09/15/23 10:54
History of Present Illness
History of Present Illness:
48-year-old female with past medical history of developmental delay presenting to the emergency department for evaluation after she started with some coughing/nausea and vomiting similar to multiple previous episodes in the past. Patient contacted
EMS who brought her here to the ER for further evaluation. Patient endorses still feeling a little bit nauseous. She denies any fevers, chills, rigors chest pain or shortness of breath, back or flank pain, urinary symptoms or any other concerns.
Patient did not take anything for her symptoms prior to arrival. Patient has been in this ER for multiple similar concerns in the past.
Past History
Past History
ED Past Medical History: Hypothyroidism, Psychiatric (Depression, ), Other (PNA, ) and Other (Down syndrome, pulmonary hypertension, SOPHY with CPAP, morbid obesity, )
ED Past Surgical History: Cardiac ([employer] Loop Recorder), Orthopedic (Left leg surgery), Tonsilectomy and Other (heart valve surgery as infant)
Social History
Tobacco: Non-smoker
Alcohol: None
Drug: None
Personal: Single
Living: with family
Employment: Employed
Review of Systems
Review of Systems
All Other Systems: ROS reviewed and negative except as documented in HPI and ROS
Phy Exam
Physical Exam
Physical Exam:
GENERAL: Alert , in no apparent distress, no cough appreciated
EYE: clear conjunctiva b/l
HEAD: older appearing bruise right denominational
ENT: o/p clr, mmm.
CARDIAC: Regular rate and rhythm .
LUNGS: Clear breath sounds bilaterally, no acute respiratory distress, no wheezes/rales/rhonchi
ABDOMEN: Soft, without focal tenderness, no r/g, no cvat
NEUROLOGICAL: Alert and oriented
SKIN: Warm and dry, skin intact.
MUSCULOSKELETAL: well perfused.
PSYCH: Normal and appropriate interaction.
Scores
Heart Failure Risk
Heart Failure Risk Score: Not Applicable
Heart Score for Chest Pain Patients
STEMI patient?: Not applicable
Withdrawal Assessment of Alcohol
Withdrawal Assessment Completed?: Not applicable
Course
Orders/Labs/Results
Orders:
Orders
09/15/23 10:55
CR Chest - 2 Views Urgent
Comment:
Reason For Exam: cough/vomitting
09/15/23 10:59
Ondansetron Orally Disint [Zofran Odt (Orally Disintegrating)] 4 mg PO NOW STA
Vital Signs
Initial and Last Documented VS:
Initial Vital Signs
Temp Pulse Resp BP Pulse Ox
97.5 F 50 18 120/77 93
09/15/23 10:51 09/15/23 10:51 09/15/23 10:51 09/15/23 10:51 09/15/23 10:51
Last Documented Vital Signs
Temp Pulse Resp BP Pulse Ox
97.5 F 50 18 120/77 93
09/15/23 10:51 09/15/23 10:51 09/15/23 10:51 09/15/23 10:51 09/15/23 10:51
MDM/Problems Addressed
Differential Diagnosis Includes:
viral syndrome, GERD, gastritis, no concern for emergent process
MDM/Problems Addressed:
48-year-old female presenting emergency department for evaluation after she started with a slight cough and had an episode of vomiting this morning. Similar episodes in the past. Patient is in no acute distress, ambulating in room, no respiratory
difficulty. Lungs clear to auscultation, abdomen benign and patient is otherwise hemodynamically stable. Will treat with Zofran ODT, chest x-ray ordered. Will perform p.o. trial. If patient is feeling better and tolerates she will be stable for
discharge home
*Radiology
Radiology exam reviewed: preliminary read by ED provider (mild CHF but overall unchanged)
*Pulse Oximetry
Patient hypoxic: no
*Critical Care Note
Total Time (30-74mins, 75-104mins- exclusive of procedures): Not Applicable
Data Reviewed
Review of Other/Old Records Reveals: Labs and Records
Patient Management
Escalation/DeEscalation of care consider admission/obs:
Patient remains stable. Tolerating PO. CXR unremarkable from previous. Stable for discharge home. Father coming to pick patient up in ED.
ED Attending Note
-
Portions of this chart may have been created with voice recognition software.� Occasional wrong word or��sound alike� substitutions may have occurred due to the inherent limitations of voice recognition software.
Discharge Plan
Departure
Patient Disposition: Home (Routine Discharge)
Date of Disposition: 09/15/23
Time of Disposition: 12:53
Patient with high blood pressure during this ER visit?: No
Discharge Problem:
Nausea and vomiting
Instructions: Nausea and Vomiting, Adult ED
Prescriptions:
No Action
ascorbic acid (vitamin C) [Vitamin C] 500 mg Tablet
500 mg PO DAILY
escitalopram oxalate 10 mg tablet
10 mg PO DAILY
ezetimibe 10 mg tablet
10 mg PO DAILY
albuterol sulfate [ProAir HFA] 90 mcg/actuation HFA aerosol inhaler
2 puff inhalation R Q4HPRN PRN (Reason: shortness of breath)
cyanocobalamin (vitamin B-12) 1,000 mcg Tablet
1,000 mcg PO DAILY
levothyroxine 112 mcg Tablet
112 mcg PO DAILY@0700 Qty: 30 0RF
guaifenesin 600 mg tablet extended release 12hr
600 mg PO Q12H
albuterol sulfate 90 mcg/actuation HFA aerosol inhaler
2 puff inhalation Q6H PRN (Reason: shortness of breath or wheezing) Qty: 8.5 0RF
prednisone 50 mg tablet
50 mg PO DAILY Qty: 4 0RF
furosemide [Lasix] 20 mg tablet
20 mg PO DAILY Qty: 5 0RF
Referrals:
UNKNOWN - PT DOES,NOT KNOW [Family Provider] -
Interventions
Interventions:
*Risk Screen - Suicide Last Done: 09/15/23 10:52
*General Assessment Last Done: 09/15/23 10:52
*Neglect/Abuse Screening Last Done: 09/15/23 10:52
*ED COVID-19 Vaccine History Last Done: 09/15/23 11:03
Discharge Date and Time
Print Language: WOLOF
[2023-09-15 11:02] VITALS: BMI 50.0
[2023-09-15] MEDS: ZOFRAN ODT (ORALLY DISINTEGRATING) 4 MG PO (11:03)
== END 2023-09-15 14:21 | disposition home or self-care (01) ==
LOC: EMR 10:40
PROVIDERS: EMERGENCY PHYSICIAN Emergency Medicine
DX: R11.2 Nausea with vomiting, unspecified (principal); R05.9 Cough, unspecified; F32.A Depression, unspecified; Q90.9 Down syndrome, unspecified; G47.33 Obstructive sleep apnea (adult) (pediatric); E66.01 Morbid (severe) obesity due to excess calories; E03.9 Hypothyroidism, unspecified; I27.20 Pulmonary hypertension, unspecified; Z87.01 Personal history of pneumonia (recurrent); Z88.0 Allergy status to penicillin
CPT/HCPCS: 99283; 71046

== ENCOUNTER 2023-09-16 11:54 | Emergency (ER) | payer OTHER, MEDICAID, SELFPAY ==
[2023-09-16] VITALS (8 sets, daily range): BP systolic 83–107; BP diastolic 54–81; BMI 51.8
[2023-09-16 12:22] LABS: % Basophils 1.2 % (0-2); % Eosinophils 3.9 % (0-6); % Immature Granulocytes 0.2 % (0-0.5); % Monocytes 5.9 % (1.7-9.3); % Neutrophils 74.8 % (42.2-75.2); Absolute Basophils 0.1 10^3/uL (0-0.2); Absolute Eosinophils 0.2 10^3/uL (0-0.7); Absolute Lymphocytes 0.7 10^3/uL (1.2-3.4); Absolute Monocytes 0.3 10^3/uL (0.1-0.6); Absolute Neutrophils 3.8 10^3/uL (1.4-6.5); Hemoglobin 16.2 g/dL (12.0-16.0); Mean Corp Hgb Conc. 33.1 g/dL (33.0-37.0); Mean Corpuscular Hgb 30.7 pg (27.0-31.0); Mean Corpuscular Volume 92.8 fL (81.0-99.0); Mean Platelet Volume 9.8 fL (7.4-10.4); Nucleated Red Blood Cells % 0 %; Platelet Count 172 10^3/uL (130-400); Red Blood Cell Count 5.28 10^6/uL (4.20-5.40); Red Cell Dist. Width 17.9 % (11.5-14.5); White Blood Cell Count 5.1 10^3/uL (4.8-10.8)
[2023-09-16 12:43] LABS: Amphetamines Negative (Negative); Barbiturates Negative (Negative); Benzodiazepines Negative (Negative); Buprenorphine Negative (Negative); Cocaine Negative (Negative); Marijuana Negative (Negative); Methadone Negative (Negative); Methamphetamines Negative (Negative); Opiates Negative (Negative); Phencyclidine Negative (Negative); Tricyclic Antidepressants Positive (Negative)
[2023-09-16 12:58] LABS: Blood Urea Nitrogen 20 mg/dl (7-17); Calcium 9.2 mg/dl (8.4-10.2); Carbon Dioxide 31 mmol/L (22-30); Chloride 99 mmol/L (98-107); Estimated Creatinine Clearance 54 ml/min; Glucose 111 mg/dl (70-99); Sodium 135 mmol/L (135-145); eGFR 51.36
--- NOTE | 2023-09-16 13:02 | ED.GENMED ---
History of Present Illness
<Jose Segundo MD, Resident - Last Filed: 09/19/23 06:00>
General
Chief Complaint: Suicidal Ideation
Time Seen by Provider: 09/16/23 12:34
History of Present Illness
History of Present Illness:
49-year-old female with developmental delay presented with suicidal ideation. The patient states that she took 4 tablets of her father's medication, not sure which one around 9:30-10 am. Father was parts identification technician and he mentioned that he takes
finasteride, carvedilol, warfarin, gemfibrozil. She also took few packets of rat poison which was lying down near the window. Patient reported herself to her father that she took these pills and her ambulance was called by her father. She reports
feeling overwhelmed because her father, who cannot clean himself in the restroom, repeatedly asked for help, which she no longer wants to do. She denies any intention to harm her father and denies any history of sexual abuse by her father or anyone
else. The patient mention feeling hungry at the time. She expressed distress at having to assist her father with personal hygiene which led her to take the pills in an attempt to harm himself. She does take care of her father (81) and herself.
Past History
<Jose Segundo MD, Resident - Last Filed: 09/19/23 06:00>
Past History
ED Past Medical History: Hypothyroidism, Psychiatric (Depression, ), Other (PNA, ) and Other (Down syndrome, pulmonary hypertension, SOPHY with CPAP, morbid obesity, )
ED Past Surgical History: Cardiac ([employer] Loop Recorder), Orthopedic (Left leg surgery), Tonsilectomy and Other (heart valve surgery as )
Social History
Tobacco: Non-smoker
Alcohol: None
Drug: None
Personal: Single
Living: with family
Employment: Employed
Phy Exam
<Jose Segundo MD, Resident - Last Filed: 09/19/23 06:00>
General Physical Exam
General Presentation: no apparent distress
General Skin: dry
Eye Exam
Eye Exam: PERRL
Cardiovascular Exam
Cardiovascular Exam: regular rate/rhythm, no gallop and no murmur
Pulmonary Exam
Pulmonary Exam: lungs clear, no rales, no crackles, no rhonchi and no wheezing
Gastrointestinal Exam
Gastrointestinal Exam: normal bowel sounds, non tender, soft and non distended
Neurological Exam
Neurological Exam: alert, oriented x3 and no motor deficits
Course
<Jose Segundo MD, Resident - Last Filed: 09/19/23 06:00>
Orders/Labs/Results
Orders:
Orders
09/16/23 12:06
Electrocardiogram (*1) Urgent
Reason for Study: Other
Other Reason for Exam: overdose
EKG- Treatment ONCE
09/16/23 12:11
Basic Metabolic Panel Urgent
Complete Blood Count/With Diff Urgent
Urine Drug Abuse Screen Stat
Date Specimen was Collected: 09/16/23
Time Specimen was Collected: 12:10
09/16/23 13:18
0.9% Sodium Chloride 500 ml [Nss] 500 ml IV BOLUS
09/16/23 13:26
Test Result ONCE
09/16/23 13:27
Crisis Consult Urgent
Reason for Consult: suicidal ideation
09/16/23 13:37
Test Result ONCE
09/16/23 13:38
PTT Urgent
Prothrombin Time Urgent
09/16/23 14:12
Acetaminophen Routine
HCG, Serum Qualitative Screen Routine
Salicylate Routine
Abnormal Lab Results
09/16/23 09/16/23 09/16/23
12:11 13:38 14:12
Hgb 16.2 H g/dL
(12.0-16.0)
Hct 49.0 H %
(37.0-47.0)
RDW 17.9 H %
(11.5-14.5)
Absolute Lymphs (auto) 0.7 L 10^3/uL
(1.2-3.4)
Lymphocytes % 14.0 L %
(20.5-51.1)
APTT 38.0 H Sec
(23.4-35.0)
Carbon Dioxide 31 H mmol/L
(22-30)
BUN 20 H mg/dl
(7-17)
Creatinine 1.3 H mg/dL
(0.6-1.0)
Glucose 111 H mg/dl
(70-99)
Salicylates < 1.0 L mg/dl
(2.0-20.0)
Acetaminophen < 10 L ug/ml
(10-30)
Ur Tricyclics Screen Positive H
(Negative)
09/16/23 12:11
09/16/23 12:11
Vital Signs
Initial and Last Documented VS:
Initial Vital Signs
BP
83/72
09/16/23 12:06
Last Documented Vital Signs
Temp Pulse Resp BP Pulse Ox
98.8 F 49 16 97/78 91
09/16/23 12:13 09/16/23 17:00 09/16/23 17:00 09/16/23 17:00 09/16/23 17:00
<Marlon Vargas MD - Last Filed: 09/16/23 19:57>
Orders/Labs/Results
Orders:
Orders
09/16/23 12:06
Electrocardiogram (*1) Urgent
Reason for Study: Other
Other Reason for Exam: overdose
EKG- Treatment ONCE
09/16/23 12:11
Basic Metabolic Panel Urgent
Complete Blood Count/With Diff Urgent
Urine Drug Abuse Screen Stat
Date Specimen was Collected: 09/16/23
Time Specimen was Collected: 12:10
09/16/23 13:18
0.9% Sodium Chloride 500 ml [Nss] 500 ml IV BOLUS
09/16/23 13:26
Test Result ONCE
09/16/23 13:27
Crisis Consult Urgent
Reason for Consult: suicidal ideation
09/16/23 13:37
Test Result ONCE
09/16/23 13:38
PTT Urgent
Prothrombin Time Urgent
09/16/23 14:12
Acetaminophen Routine
HCG, Serum Qualitative Screen Routine
Salicylate Routine
Abnormal Lab Results
09/16/23 09/16/23 09/16/23
12:11 13:38 14:12
Hgb 16.2 H g/dL
(12.0-16.0)
Hct 49.0 H %
(37.0-47.0)
RDW 17.9 H %
(11.5-14.5)
Absolute Lymphs (auto) 0.7 L 10^3/uL
(1.2-3.4)
Lymphocytes % 14.0 L %
(20.5-51.1)
APTT 38.0 H Sec
(23.4-35.0)
Carbon Dioxide 31 H mmol/L
(22-30)
BUN 20 H mg/dl
(7-17)
Creatinine 1.3 H mg/dL
(0.6-1.0)
Glucose 111 H mg/dl
(70-99)
Salicylates < 1.0 L mg/dl
(2.0-20.0)
Acetaminophen < 10 L ug/ml
(10-30)
Ur Tricyclics Screen Positive H
(Negative)
09/16/23 12:11
09/16/23 12:11
Vital Signs
Initial and Last Documented VS:
Initial Vital Signs
BP
83/72
09/16/23 12:06
Last Documented Vital Signs
Temp Pulse Resp BP Pulse Ox
98.8 F 49 16 97/78 91
09/16/23 12:13 09/16/23 17:00 09/16/23 17:00 09/16/23 17:00 09/16/23 17:00
<Jose Segundo MD, Resident - Last Filed: 09/19/23 06:00>
*Critical Care Note
Total Time (30-74mins, 75-104mins- exclusive of procedures): Not Applicable
<Jose Segundo MD, Resident - Last Filed: 09/19/23 06:00>
Update Note
Update Note:
48 year old female presented iwth suicidal ideation And was seen by Ricki, this crisis consultation. The patient mentioned that she did not take the rat poison as it did not taste good, but confirming taking 4 tablets of her father's medication.
I talked to Minoo's father and the medication that he was taking is gemfibrozil, finasteride, carvedilol, warfarin which the patient just 1 of each. These medications did not have any major side effects with low doses. Patient's vitals stable and
blood pressure have improved from 83/70 to 207/61 with IV fluids. All other test are unremarkable. If we can observe the patient for a couple hours and if she remains stable then we can medically clear her and discharge her home today.
ED Attending Note
<Jose Segundo MD, Resident - Last Filed: 09/19/23 06:00>
-
Portions of this chart may have been created with voice recognition software.� Occasional wrong word or��sound alike� substitutions may have occurred due to the inherent limitations of voice recognition software.
<Marlon Vargas MD - Last Filed: 09/16/23 19:57>
ED Attending Note
Patient seen and examined by attending physician: Yes
I performed the substantive portion of visit, reviewed & personally made and approve the management plan that is documented in note by myself or PRASHANT.: Yes
I performed a history and physical exam of patient and discussed management with resident, I reviewed resident's note and agree with documented findings and plan of care.: Yes
ED Attending Note:
48-year-old female took 1 each of the 4 of her father's medications. 1 was a lisinopril. 1 was a Coumadin tablet. 1 was a fiber tablet. 1 was a vitamin. She had first that she had taken some rat poison but later then denied it. She did not do
this in a suicide attempt. She was upset with having to care for her father.
On exam patient is nontoxic in no distress. Warm and dry. Perfusion well. Mentally delayed. Lungs clear and equal. Heart regular rate and rhythm no murmur. Abdomen soft and nontender. Warm and dry. Nonfocal.
Labs are stable. EKG is stable. Ongoing observation. Is currently 1745 patient is awake alert in no distress patient was cleared by crisis. Father is here to pick her up.
Discharge Plan
Departure
Patient Disposition: Home (Routine Discharge)
Date of Disposition: 09/16/23
Time of Disposition: 17:48
Patient with high blood pressure during this ER visit?: No
Discharge Problem:
Medication overdose, Overdose by ingestion
Prescriptions:
No Action
ascorbic acid (vitamin C) [Vitamin C] 500 mg Tablet
500 mg PO DAILY
escitalopram oxalate 10 mg tablet
10 mg PO DAILY
ezetimibe 10 mg tablet
10 mg PO DAILY
albuterol sulfate [ProAir HFA] 90 mcg/actuation HFA aerosol inhaler
2 puff inhalation R Q4HPRN PRN (Reason: shortness of breath)
cyanocobalamin (vitamin B-12) 1,000 mcg Tablet
1,000 mcg PO DAILY
levothyroxine 112 mcg Tablet
112 mcg PO DAILY@0700 Qty: 30 0RF
guaifenesin 600 mg tablet extended release 12hr
600 mg PO Q12H
albuterol sulfate 90 mcg/actuation HFA aerosol inhaler
2 puff inhalation Q6H PRN (Reason: shortness of breath or wheezing) Qty: 8.5 0RF
prednisone 50 mg tablet
50 mg PO DAILY Qty: 4 0RF
furosemide [Lasix] 20 mg tablet
20 mg PO DAILY Qty: 5 0RF
Referrals:
UNKNOWN,NO INTERVIEW [Family Provider] -
Activity Restrictions/Additional Instructions:
Follow-up closely with your primary physician.
Follow-up closely with [facility]
Return immediately with any urge to take a ingestion, somebody else's medication, depression or suicidal ideation.
Also return with any unusual symptoms including unusual lethargy chest pain shortness of breath abnormal bleeding etc.
Interventions
Interventions:
*Risk Screen - Suicide Last Done: 09/16/23 11:58
*General Assessment Last Done: 09/16/23 11:58
*Neglect/Abuse Screening Last Done: 09/16/23 11:58
ED- Fall Risk Assessment Last Done: 09/16/23 11:58
*Nursing Disposition Last Done: 09/16/23 18:04
ED-Psychological Assessment Last Done: 09/16/23 11:58
Discharge Date and Time
Discharge Date/Time: 09/16/23 18:04
Print Language: RUSSIAN
[2023-09-16] MEDS: NSS 500 IV (13:41)
[2023-09-16 14:03] LABS: INR 0.97; PT 12.9 Sec (11.4-14.6)
[2023-09-16 14:46] LABS: HCG, Serum Qualitative Screen Negative
[2023-09-16 14:50] LABS: Acetaminophen < 10 ug/ml (10-30); Salicylate < 1.0 mg/dl (2.0-20.0)
== END 2023-09-16 18:04 | disposition home or self-care (01) ==
LOC: EMR 11:54
PROVIDERS: Emergency Medicine; Student in an Organized Health Care Education/Training Program; EMERGENCY PHYSICIAN Emergency Medicine
DX: T50.901A Poisoning by unspecified drugs, medicaments and biological substances, accidental (unintentional), initial encounter (principal); X58.XXXA Exposure to other specified factors, initial encounter; R62.50 Unspecified lack of expected normal physiological development in childhood; E03.9 Hypothyroidism, unspecified; F32.A Depression, unspecified; Q90.9 Down syndrome, unspecified; G47.33 Obstructive sleep apnea (adult) (pediatric); E66.01 Morbid (severe) obesity due to excess calories; I27.20 Pulmonary hypertension, unspecified
CPT/HCPCS: 99283; 80048; 80143; 80179; 80306; 84703; 85025; 85610; 85730; 93005

== ENCOUNTER 2023-09-21 13:46 | Emergency (ER) | payer OTHER, MEDICAID, SELFPAY ==
[2023-09-21] VITALS (9 sets, daily range): BP systolic 98–119; BP diastolic 69–82; BMI 49.8
--- NOTE | 2023-09-21 15:11 | CM ---
Addendum entered by Divina Allison RN 09/21/23 15:48:
Father did endorse that [facility] accepted patient, but then was denied due to her insurance.
Addendum entered by Dviina Allison RN 09/21/23 15:42:
CM spoke with ED provider to explain challenges in return patient to her home at this time. CM will continue. CM will update CM director.
Original Note:
CM left message for patient's [facility] APS loss prevention investigator. Amos Valencia [phone].
Cm received call from patient's father stating that he cannot continue to care for patient. Patient has presented multiple times to the hospital for complaints of shortness of breath, suicide attempts and fainting. Patient's father stated that
patient's behavior has become more difficult to control in the home. These behaviors include threatening suicide, lying and often times laying on the floor and refusing to get up.
Patient has multiple services in the home. Father stated that APS worker Mona Monique [phone] has been following.
CM left message for patient's [facility] APS loss prevention investigator. Amos Valencia [phone] who father states has been following for placement or residential care.
CM updated ED provider.
[2023-09-21 15:20] LABS: COVID-19 Antigen Negative (Negative)
--- NOTE | 2023-09-21 15:32 | ED.GENMED ---
History of Present Illness
General
Chief Complaint: Breathing Problem
Source: patient and family (father)
Time Seen by Provider: 09/21/23 15:22
History of Present Illness
History of Present Illness:
48 yo female well know to this ED, Case management staff. She has hx Down's syndrome with developmental delays, hypothyroid, depression arrives stating 'chest pain today,' she denies chest pain at this time but states she had it at home and in the
ambulance. She also denies shortness of breath at this time but says she had trouble breathing 'in the ambulance.' Denies n/v/d/c. States she feels safe at home. Denies feeling depressed.
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 Does not want to hurt him and denied abuse by him. Here 5 days ago for allegedly taking four tablets of her
father's medication, and few packets of rat poison (then later here in ER denied that), dx with SI, dad tried to get her 302'd but it was denied and she ended up going back home with her father.
Past History
Past History
ED Past Medical History: Hypothyroidism, Psychiatric (Depression, ), Other (PNA, ) and Other (Down syndrome, pulmonary hypertension, SOPHY with CPAP, morbid obesity, )
ED Past Surgical History: Cardiac ([employer] Loop Recorder), Orthopedic (Left leg surgery), Tonsilectomy and Other (heart valve surgery as infant)
Social History
Tobacco: Non-smoker
Alcohol: None
Drug: None
Personal: Single
Living: with family
Employment: Employed
Review of Systems
Review of Systems
Allergies reviewed?: Yes
All Other Systems: ROS reviewed and negative except as documented in HPI and ROS
Constitutional: Denies fever
Respiratory: Denies trouble breathing
Cardiac: Denies chest pain
ABD/GI: Denies abdominal pain, nausea, vomiting or diarrhea
: Denies dysuria or difficulty voiding
Musculoskeletal: Reports no symptoms
Skin: Reports no symptoms
Neurological: Reports no symptoms
Psychiatric: Reports depression (denies)
Phy Exam
Physical Exam
Physical Exam:
GENERAL: No acute distress. A&Ox3.
CONSTITUTIONAL: Afebrile.
EYES: Clear, conjunctivae normal
Neck: Supple
ENMT: moist mucus membranes, Pharynx nl
RESPIRATORY: Regular respirations, nonlabored, lungs clear.
CARDIOVASCULAR: Regular rate and rhythm, no murmurs, no rubs.
GI: Soft, nontender, normal BS
MUSCULOSKELETAL: Moves with ease. Well perfused.
SKIN: Warm, dry, pink
PSYCH: Normal mood and affect. Well kept, interactive and appropriate
NEUROLOGIC: Awake, alert and oriented. No focal neurological deficits
Scores
Heart Failure Risk
Heart Failure Risk Score: Not Applicable
Course
Orders/Labs/Results
Orders:
Orders
09/21/23 13:48
Electrocardiogram (*1) Urgent
Reason for Study: Chest Pain
EKG- Treatment ONCE
09/21/23 14:43
COVID-19 Antigen Urgent
Source: Nasal Swab
Influenza A+B Rapid Molecular Urgent
APOLLO Source: Nasal Swab
Specimen Description:
09/21/23 15:38
Complete Blood Count/With Diff Urgent
Comprehensive Metabolic Panel Urgent
09/21/23 16:46
Case Management Consult ONCE
Case Management Consult: Discharge Planning
09/22/23 Breakfast
Regular
At Your Request: Limited, Youth Minister Required
Abnormal Lab Results
09/21/23
15:38
WBC 4.3 L 10^3/uL
(4.8-10.8)
RDW 18.2 H %
(11.5-14.5)
Absolute Lymphs (auto) 0.8 L 10^3/uL
(1.2-3.4)
Lymphocytes % 17.8 L %
(20.5-51.1)
Sodium 133 L mmol/L
(135-145)
BUN 18 H mg/dl
(7-17)
Creatinine 1.3 H mg/dL
(0.6-1.0)
AST 46 H U/L
(14-36)
09/21/23 15:38
09/21/23 15:38
Vital Signs
Initial and Last Documented VS:
Initial Vital Signs
Temp Pulse Resp BP Pulse Ox
98.7 F 53 20 119/74 96
09/21/23 13:49 09/21/23 13:49 09/21/23 13:49 09/21/23 13:49 09/21/23 13:49
Last Documented Vital Signs
Temp Pulse Resp BP Pulse Ox
98.4 F 66 18 92/66 93
09/22/23 11:40 09/22/23 11:40 09/22/23 11:40 09/22/23 11:40 09/22/23 11:40
MDM/Problems Addressed
Differential Diagnosis Includes:
Depression, behavioral disturbance, attention seeking behavior
MDM/Problems Addressed:
Spoke with pt father, he cannot handle her at home. He is not well himself. He reports incidences where she has told him she took mouse poison and when she got to the emergency room she denied it. He states 1 day without working in the yard she
just laid down in the front yard, the neighbors stop by to see if she would get up, she would get up, he called EMS when they arrived she got up and walked to the ambulance to come to ED.
Divina from Case Management request pt stay overnight tonight (Friday), she will consult with her Voice Studies Director tomorrow (Friday)
Plan: Admit as a boarder until Case Management has plan
09/22/23 11:[address] Padron informs me that Case Management and Crisis have both agreed pt OK for discharge. They have spoken with the father, he and pt both comfortable having her go home.
*Critical Care Note
Total Time (30-74mins, 75-104mins- exclusive of procedures): Not Applicable
ED Attending Note
-
Portions of this chart may have been created with voice recognition software.� Occasional wrong word or��sound alike� substitutions may have occurred due to the inherent limitations of voice recognition software.
Discharge Plan
Departure
Patient Disposition: Home (Routine Discharge)
Date of Disposition: 09/22/23
Time of Disposition: 11:06
Admit to: Med/Surg
Patient with high blood pressure during this ER visit?: No
Condition: Good
Discharge Problem:
Behaviour disorder
Prescriptions:
No Action
escitalopram oxalate 10 mg Tablet
10 mg PO DAILY
Referrals:
Marlon Mina DO [Family Provider] -
Activity Restrictions/Additional Instructions:
I see nothing worrisome in your workup here today
Follow up with your case assistant, therapist or primary doctor within the next week.
Interventions
Interventions:
*Risk Screen - Suicide Last Done: 09/21/23 13:49
*General Assessment Last Done: 09/21/23 14:55
*Neglect/Abuse Screening Last Done: 09/21/23 13:49
ED- Fall Risk Assessment Last Done: 09/21/23 13:49
*ED COVID-19 Vaccine History Last Done: 09/21/23 14:55
*Nursing Disposition Last Done: 09/22/23 11:40
ED- Cardiac Assessment Last Done: 09/21/23 19:14
ED- Pulmonary Assessment Last Done: 09/21/23 19:14
Discharge Date and Time
Discharge Date/Time: 09/22/23 11:40
Print Language: MOROCCAN
[2023-09-21 16:09] LABS: % Basophils 1.6 % (0-2); % Eosinophils 3.2 % (0-6); % Immature Granulocytes 0.2 % (0-0.5); % Lymphocytes 17.8 % (20.5-51.1); % Monocytes 8.5 % (1.7-9.3); % Neutrophils 68.7 % (42.2-75.2); Absolute Basophils 0.1 10^3/uL (0-0.2); Absolute Eosinophils 0.1 10^3/uL (0-0.7); Absolute Lymphocytes 0.8 10^3/uL (1.2-3.4); Absolute Monocytes 0.4 10^3/uL (0.1-0.6); Hematocrit 45.3 % (37.0-47.0); Hemoglobin 15.5 g/dL (12.0-16.0); Mean Corp Hgb Conc. 34.2 g/dL (33.0-37.0); Mean Corpuscular Hgb 30.5 pg (27.0-31.0); Mean Corpuscular Volume 89.2 fL (81.0-99.0); Mean Platelet Volume 9.9 fL (7.4-10.4); Nucleated Red Blood Cells % 0 %; Platelet Count 156 10^3/uL (130-400); Red Blood Cell Count 5.08 10^6/uL (4.20-5.40); Red Cell Dist. Width 18.2 % (11.5-14.5); White Blood Cell Count 4.3 10^3/uL (4.8-10.8)
[2023-09-21 16:28] LABS: ALT (SGPT) 21 U/L (0-35); AST (SGOT) 46 U/L (14-36); Alkaline Phosphatase 78 U/L (38-126); Blood Urea Nitrogen 18 mg/dl (7-17); Calcium 8.9 mg/dl (8.4-10.2); Carbon Dioxide 24 mmol/L (22-30); Chloride 104 mmol/L (98-107); Estimated Creatinine Clearance 55 ml/min; Glucose 85 mg/dl (70-99); Potassium 4.4 mmol/L (3.5-5.1); Sodium 133 mmol/L (135-145); Total Bilirubin 0.6 mg/dl (0.2-1.3); Total Protein 6.9 g/dl (6.3-8.2); eGFR 51.36
--- NOTE | 2023-09-21 16:28 | PHANOTE ---
med rec ashley(09/21/23)-called patient's father, he states that the patient was taken off all meds except escitalopram, because she was overdosing on her medications.
--- NOTE | 2023-09-21 19:27 | EDRN ---
Pt smiling, interactive with staff. Explained to pt that she will remain in the ED overnight until she can be evaluated for placement in the morning. Pt finished all of boxed sandwich meal and has beverage at bedside. When asked if she has pain,
pt smiles and points to upper middle chest. Pt oriented to call nuno, able to show this RN how to call for assistance and how to use the TV.
[2023-09-22] VITALS: BP 104/77
[2023-09-22 02:00] VITALS: BP 101/64
[2023-09-22 10:16] VITALS: BP 97/64
[2023-09-22 10:18] VITALS: BP 97/64
--- NOTE | 2023-09-22 11:03 | CM ---
CM following re' discharge planning.
CM consulted to assist pt with discharge planning.
Reviewed pt's chart, met with pt.
Pt is a 48 year old female with h/o intellectual disability, Down syndrome. Pt reports she lives with father in a 2SH, 3 steps to enter, Pt described herself as independent in all areas SEWER. Pt stated she cooks, cleans, does shopping, does not drive
and her caregiver transports her. Pt stated she loves her father, sometime they argue with each other and pt admitted she initiates arguments. Pt reports she understands that arguments will not help and pt stated 'this because of my brain'.
Emotional support and reassurance offered and provided.
CM spoke to [facility] APS tax representative Amos Erik [phone] and he stated he gat a report to investigate pt's well being in the home and he coordinates his investigation with [facility] of intellectual disability correctional case records supervisor
Mona [phone].
CM spoke to correctional case records supervisor Mona from [facility] of intellectual disability and she stated that pt has 30 hours of caregiver services per week and they can increase hours per pt's and her father request. Per Mona, they can offer residential
facility placement but pt wants to stay in her home with father and they cannot force her to leave the house. Per Mona, if pt returns back home, she will be working to increase caregiver services.
Pt is known to [facility]. CM left a message to [facility] nurse navigator Avis [phone]. CM spoke to Crisis team from [facility] and they confirmed that pt is well known to [facility] and [facility] team coordinating
pt's well being at home with [facility]. CM strongly advised [facility] Crisis team to increase community based services especially managing pt's medication at home.
CM spoke to pt's father and he stated his spouse 12 years ago, they did not have children and after unsuccessful expensive treatment for his spouse they decided to adopt children. Pt's father stated they adopted 5 children and only
daughter Cha lives with father. Pt's father stated he and his spouse cared also for 8 foster care kids. Per father, one adopted child lives in [place], another in [place], adopted daughter lives in the area and adopted son lives locally and he comes to
father's house when 'he is in trouble'. Pt's father stated he cannot lives without Cha, she cooks for him, does housekeeping, laundry and shopping. pt's father stated he will not be able to stay in home without Cha. Per father, Cha was not
able to manage her medications, she took his meds at some point and per father he is managing her meds. Pt's father stated he fell at home yesterday, now ambulates with a walker and uses a scooted for along distance. Pt's father stated he is
planning to get everything on Cha's name: house, money, etc. CM expressed to pt's father great appreciation for taking care of adopted children. Pt's father expressed his agreement to bring Cha home today and he is aware that APS correctional case records supervisor
Amos Valencia correctional case records supervisor Mona from [facility]lectual disability, [facility] team will continue to working on increasing community based support and pt's well being. Pt's father stated that pt's nephew was killed in 2013 and
pt's sister was killed in 2019.
D/C plan: home with follow up with APS correctional case records supervisor Amos Valencia, correctional case records supervisor Mona from [facility] disability, [facility] team to continue working on increasing community based support and pt's well being.
[facility] correctional case records supervisor Amos Valencia correctional case records supervisor from [facility] disability and [facility] team are aware of Cha's discharge.
Pt's father is looking for help of his neighbor to bring Cha home
[2023-09-22 11:31] VITALS: BP 92/66
[2023-09-22 11:40] VITALS: BP 92/66
--- NOTE | 2023-09-22 11:52 | EDRN ---
Discharge instructions given to patient's father. Father stated 'Don't worry. She'll be back in a day or 2.'
== END 2023-09-22 11:40 | disposition home or self-care (01) ==
LOC: EMR 13:46
PROVIDERS: Registered Nurse; EMERGENCY PHYSICIAN Emergency Medicine; FAMILY PHYSICIAN Family Medicine
DX: F91.9 Conduct disorder, unspecified (principal); F32.A Depression, unspecified; Q90.9 Down syndrome, unspecified; E03.9 Hypothyroidism, unspecified; Z11.52 Encounter for screening for COVID-19
CPT/HCPCS: 99284; 80053; 85025; 87502; 87811; 93005

== ENCOUNTER → 2023-11-19 10:12 | Outpatient (REF) | payer OTHER, MEDICAID, SELFPAY | LOC: HWRCS 10:12 | PROVIDERS: ATTENDING PHYSICIAN Internal Medicine Cardiovascular Disease; FAMILY PHYSICIAN Family Medicine | DX: I50.20 Unspecified systolic (congestive) heart failure (principal) | CPT/HCPCS: 93306 ==

== ENCOUNTER 2023-12-07 12:00 | Emergency (ER) | payer OTHER, MEDICAID, SELFPAY ==
[2023-12-07] VITALS (9 sets, daily range): BP systolic 108–127; BP diastolic 65–83; PULSE 56–66; BMI 42.1
--- NOTE | 2023-12-07 13:54 | ED.GENMED ---
History of Present Illness
General
Chief Complaint: Dizziness
Source: patient
Exam Limitations: none
Time Seen by Provider: 12/07/23 13:53
Nursing documentation reviewed up to this point in time: agreed with
History of Present Illness
History of Present Illness:
48-year-old female well-known to this emergency department for numerous visits. Here today because she drank from a bottle of Chloraseptic while at the [email or web address] with her [employer].
Caregiver Robyn Valencia at bedside (manager maritime in summer, holidays and 7 hours a week during school year as she is a director school of nursing for special needs) has been with pt for years. Knows her behavior and all issues.
Caregiver states she was late and couldn't pick pt up to go to [facility] so she made arrangements for another ride, which pt got. She states this prompted pt to put bottle of Chloraseptic in her pocket for attention seeking behavior and when bowling
was finished, again, caregiver was late in picking her up so she drank some of the Chloraseptic and 'threw herself down and pretended to be passing out.'
Caregiver states personnel from the group and paramedics told her she didn't drink much from the bottle and threw it away.
Paramedics called and spoke with father, he told them to bring her home, the people she was with were not comfortable driving her home, so paramedics brought her here. Father and caregiver state it has been very difficult getting psychiatric
services due to 'they don't work with pt with intellectual disability or they don't take her insurance.'
Caregiver requesting 302 for being danger to herself.
Past History
Past History
ED Past Medical History: Hypothyroidism, Psychiatric (Depression, ), Other (PNA, ), Other and Other (Down syndrome, pulmonary hypertension, SOPHY with CPAP, morbid obesity, )
ED Past Surgical History: Cardiac ([employer] Loop Recorder), Orthopedic (Left leg surgery), Tonsilectomy and Other (heart valve surgery as )
Social History
Tobacco: Non-smoker
Alcohol: None
Drug: None
Personal: Single
Living: with family
Employment: Employed
Review of Systems
Review of Systems
Allergies reviewed?: Yes
All Other Systems: ROS reviewed and negative except as documented in HPI and ROS
Constitutional: Denies fever
EENT: Denies sore throat
Respiratory: Denies trouble breathing
Cardiac: Denies chest pain
ABD/GI: Denies abdominal pain, nausea, vomiting or diarrhea
: Denies dysuria or difficulty voiding
Musculoskeletal: Reports no symptoms
Skin: Reports no symptoms
Neurological: Reports no symptoms
Phy Exam
Physical Exam
Physical Exam:
GENERAL: No acute distress. A&Ox3.
CONSTITUTIONAL: Afebrile.
EYES: PERRL, conjunctivae normal
Neck: Supple
ENMT: moist mucus membranes, Pharynx nl
RESPIRATORY: Regular respirations, nonlabored, lungs clear.
CARDIOVASCULAR: Regular rate and rhythm, no murmurs, no rubs.
GI: Soft, nontender, normal BS
MUSCULOSKELETAL: Moves with ease. Well perfused.
SKIN: Warm, dry, pink
PSYCH: Normal mood and affect. Well kept, interactive and appropriate
NEUROLOGIC: Awake, alert and oriented. No focal neurological deficits
Course
Orders/Labs/Results
Orders:
Orders
12/07/23 12:17
ECG [Electrocardiogram (*1)] Urgent
Reason for Study: Vertigo / Dizzy
EKG- Treatment ONCE
Orthostatic VS- Treatment ONCE
Orthostatic Vital Signs As Directed
Orthostatic VS Frequency: Now
Vital Signs
Initial and Last Documented VS:
Initial Vital Signs
Pulse Resp BP Pulse Ox
66 18 126/83 93
12/07/23 12:05 12/07/23 12:05 12/07/23 12:05 12/07/23 12:05
Last Documented Vital Signs
Pulse Resp BP Pulse Ox
66 18 124/77 89
12/07/23 12:05 12/07/23 12:05 12/07/23 16:00 12/07/23 16:01
MDM/Problems Addressed
MDM/Problems Addressed:
48-year-old female well-known to this emergency department for numerous visits. Here today because she drank from a bottle of Chloraseptic while at the [facility] with her [employer].
Caregiver Robyn Valencia at bedside (manager maritime in summer, holidays and 7 hours a week during school year as she is a director school of nursing for special needs) has been with pt for years. Knows her behavior and all issues.
Caregiver states she was late and couldn't pick pt up to go to [facility] so she made arrangements for another ride, which pt got. She states this prompted pt to put bottle of Chloraseptic in her pocket for attention seeking behavior and when [facility]
was finished, again, caregiver was late in picking her up so she drank some of the Chloraseptic and 'threw herself down and pretended to be passing out.'
Caregiver states personnel from the group and paramedics told her she didn't drink much from the bottle and threw it away.
Paramedics called and spoke with father, he told them to bring her home, the people she was with were not comfortable driving her home, so paramedics brought her here. Father and caregiver state it has been very difficult getting psychiatric
services due to 'they don't work with pt with intellectual disability or they don't take her insurance.'
Caregiver requesting 302 for being danger to herself.
Pt states 'no' when asked if she goes home, will she harm herself or do any attention getting behavior to make others worry about her?
Physical exam unremarkable
2:15 p.m.
Crisis in to speak with caregiver and patient.
Father requesting 302, Crisis working on it.
3:10 p.m.
Crisis personnel in, 302 denied. Given referrals to out pt therapy
Pt caregiver to take her home
*EKG
EKG Intrepretation Date: 12/07/23
Interpretation: normal
Heart Rate: 60
Rate: normal
Rhythm: sinus
[place]: normal axis
Interval: normal interval
QRS Pattern: normal QRS
Ischemia: no ischemia
*Critical Care Note
Total Time (30-74mins, 75-104mins- exclusive of procedures): Not Applicable
ED Attending Note
-
Portions of this chart may have been created with voice recognition software.� Occasional wrong word or��sound alike� substitutions may have occurred due to the inherent limitations of voice recognition software.
Discharge Plan
Departure
Patient Disposition: Home (Routine Discharge)
Date of Disposition: 12/07/23
Time of Disposition: 15:12
Patient with high blood pressure during this ER visit?: No
Condition: Good
Discharge Problem:
Purposeful non-suicidal drug ingestion, Attention seeking behavior
Prescriptions:
No Action
escitalopram oxalate 10 mg Tablet
10 mg PO DAILY
Referrals:
UNKNOWN - PT DOES,NOT KNOW [Unknown Provider] -
Activity Restrictions/Additional Instructions:
Make appointment with therapist at [facility] since your last appointment was cancelled.
Interventions
Interventions:
*Risk Screen - Suicide Last Done: 12/07/23 12:05
*General Assessment Last Done: 12/07/23 12:05
*Neglect/Abuse Screening Last Done: 12/07/23 12:05
ED- Fall Risk Assessment Last Done: 12/07/23 13:04
*ED COVID-19 Vaccine History Last Done: 12/07/23 13:04
*Nursing Disposition Last Done: 12/07/23 16:13
ED- Neurological Assessment Last Done: 12/07/23 13:04
ED Swallowing Screen Last Done: 12/07/23 13:04
Discharge Date and Time
Discharge Date/Time: 12/07/23 16:13
Print Language: URUGUAYAN
== END 2023-12-07 16:13 | disposition home or self-care (01) ==
LOC: EMR 12:00
PROVIDERS: EMERGENCY PHYSICIAN Emergency Medicine; FAMILY PHYSICIAN Family Medicine
DX: T41.3X1A Poisoning by local anesthetics, accidental (unintentional), initial encounter (principal); R42 Dizziness and giddiness; Y92.89 Other specified places as the place of occurrence of the external cause; E03.9 Hypothyroidism, unspecified; Q90.9 Down syndrome, unspecified; F32.A Depression, unspecified; I27.20 Pulmonary hypertension, unspecified; G47.33 Obstructive sleep apnea (adult) (pediatric); E66.01 Morbid (severe) obesity due to excess calories; R01.1 Cardiac murmur, unspecified; Q24.9 Congenital malformation of heart, unspecified; Z87.01 Personal history of pneumonia (recurrent); Z88.0 Allergy status to penicillin
CPT/HCPCS: 99283; 93005

== ENCOUNTER 2024-01-05 10:33 | Emergency (ER) | payer OTHER, MEDICAID, SELFPAY ==
[2024-01-05 10:41] VITALS: BP 105/71
[2024-01-05 10:43] VITALS: BP 105/71
[2024-01-05 10:51] VITALS: BMI 55.4
[2024-01-05 11:00] VITALS: BP 118/76
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
--- NOTE | 2024-01-05 11:16 | EDRN ---
Unable to get IV access at this time.
--- NOTE | 2024-01-05 11:36 | EDRN ---
IV VAT RN MIN in room w/pt attempting IV access and labs.
[2024-01-05 11:41] LABS: COVID-19 Antigen Negative (Negative)
--- NOTE | 2024-01-05 11:43 | EDRN ---
Initially drawn labs were hemolyzed. UPHOLSTERY INSTRUCTOR redrew labs when obtained IV access.
[2024-01-05 11:51] LABS: % Basophils 1.1 % (0-2); % Eosinophils 2.3 % (0-6); % Immature Granulocytes 0.4 % (0-0.5); % Monocytes 10.2 % (1.7-9.3); Absolute Basophils 0.1 10^3/uL (0-0.2); Absolute Eosinophils 0.1 10^3/uL (0-0.7); Absolute Lymphocytes 0.6 10^3/uL (1.2-3.4); Absolute Monocytes 0.6 10^3/uL (0.1-0.6); Absolute Neutrophils 4.4 10^3/uL (1.4-6.5); Hematocrit 43.5 % (37.0-47.0); Mean Corp Hgb Conc. 32.2 g/dL (33.0-37.0); Mean Corpuscular Hgb 30.2 pg (27.0-31.0); Mean Platelet Volume 9.7 fL (7.4-10.4); Nucleated Red Blood Cells % 0 %; Platelet Count 186 10^3/uL (130-400); Red Blood Cell Count 4.63 10^6/uL (4.20-5.40); Red Cell Dist. Width 14.6 % (11.5-14.5); White Blood Cell Count 5.7 10^3/uL (4.8-10.8)
[2024-01-05 12:00] VITALS: BP 91/59
[2024-01-05 12:07] LABS: ALT (SGPT) 18 U/L (0-35); AST (SGOT) 22 U/L (14-36); Albumin 3.6 g/dl (3.5-5.0); Alkaline Phosphatase 71 U/L (38-126); Blood Urea Nitrogen 21 mg/dl (7-17); Calcium 8.8 mg/dl (8.4-10.2); Carbon Dioxide 28 mmol/L (22-30); Chloride 104 mmol/L (98-107); Estimated Creatinine Clearance 67 ml/min; Glucose 92 mg/dl (70-99); Potassium 4.2 mmol/L (3.5-5.1); Sodium 141 mmol/L (135-145); Total Bilirubin 0.2 mg/dl (0.2-1.3); Total Protein 6.3 g/dl (6.3-8.2); eGFR > 60.00
[2024-01-05 12:12] LABS: Troponin I < 0.012 ng/ml
--- NOTE | 2024-01-05 12:59 | EDRN ---
This RN spoke to pt's father and he will be here to transport pt home in 30-45 minutes.
[2024-01-05 13:00] VITALS: BP 111/74
--- NOTE | 2024-01-05 13:17 | EDRN ---
Pt is getting dressed in room to get ready to go home at this time. Father is enroute to ED to pick pt up.
--- NOTE | 2024-01-05 13:23 | EDRN ---
Pt is dressed and awaiting her father in room at thistime.
== END 2024-01-05 13:40 | disposition home or self-care (01) ==
LOC: EMR 10:33
PROVIDERS: EMERGENCY PHYSICIAN Emergency Medicine; FAMILY PHYSICIAN Family Medicine
DX: J06.9 Acute upper respiratory infection, unspecified (principal); E03.9 Hypothyroidism, unspecified; G47.33 Obstructive sleep apnea (adult) (pediatric); I27.20 Pulmonary hypertension, unspecified; Q90.9 Down syndrome, unspecified; E66.9 Obesity, unspecified
CPT/HCPCS: 99285; 71046; 80053; 84484; 85025; 87502; 87811; 93005

== ENCOUNTER 2024-05-18 14:31 | Emergency (ER) | payer OTHER, MEDICAID, SELFPAY ==
[2024-05-18 14:36] VITALS: BMI 36.7
[2024-05-18 14:37] VITALS: BP 142/82
[2024-05-18 14:38] VITALS: BP 142/82
--- NOTE | 2024-05-18 14:42 | ED.GENMED ---
History of Present Illness
<Dwaine Murry PA-C - Last Filed: 05/18/24 16:38>
General
Chief Complaint: Overdose Unintentional
Source: patient and ambulance crew
Time Seen by Provider: 05/18/24 14:35
History of Present Illness
History of Present Illness:
48-year-old female with past medical history of Down syndrome, congenital heart defects, depression presenting to the emergency department for evaluation with the EMS after reportedly taking 29 tablets of 25 mg Benadryl around 9 AM this morning.
Patient states that she took the medication because of a cough and allergy she was experiencing. Patient denies to me any thoughts of suicidal ideation. Patient has been seen in this emergency department multiple times for similar type
presentations. She has no physical complaints at this time.
Past History
<Dwaine Murry PA-C - Last Filed: 05/18/24 16:38>
Past History
ED Past Medical History: Hypothyroidism, Psychiatric (Depression, ), Other (PNA, ), Other and Other (Down syndrome, pulmonary hypertension, SOPHY with CPAP, morbid obesity, )
ED Past Surgical History: Cardiac ([employer] Loop Recorder), Orthopedic (Left leg surgery), Tonsilectomy and Other (heart valve surgery as infant)
Social History
Tobacco: Non-smoker
Alcohol: None
Drug: None
Personal: Single
Living: with family
Employment: Employed
Review of Systems
<Dwaine Murry PA-C - Last Filed: 05/18/24 16:38>
Review of Systems
All Other Systems: ROS reviewed and negative except as documented in HPI and ROS
Phy Exam
<Dwaine Murry PA-C - Last Filed: 05/18/24 16:38>
Physical Exam
Physical Exam:
GENERAL: Alert , in no apparent distress, fully awake and alert, answering questions appropriately, no evidence for somnolence
HEAD: Normocephalic atraumatic
EYE: conjunctiva clear
NECK: Supple,
ENT: o/p clr, mmm.
CARDIAC: Regular rate and rhythm
LUNGS: Clear breath sounds bilaterally, no acute respiratory distress, no wheezes/rales/rhonchi
NEUROLOGICAL: Alert and oriented
SKIN: Warm and dry, skin intact.
MUSCULOSKELETAL: well perfused.
PSYCH: Normal and appropriate interaction.
Scores
<Dwaine Murry PA-C - Last Filed: 05/18/24 16:38>
Heart Failure Risk
Heart Failure Risk Score: Not Applicable
Heart Score for Chest Pain Patients
STEMI patient?: Not applicable
Withdrawal Assessment of Alcohol
Withdrawal Assessment Completed?: Not applicable
Course
<Dwaine Murry PA-C - Last Filed: 05/18/24 16:38>
Orders/Labs/Results
Orders:
Orders
05/18/24 14:39
Electrocardiogram (*1) Stat
Reason for Study: Other
Other Reason for Exam: overdose
EKG- Treatment ONCE
Test Result ONCE
05/18/24 14:41
Crisis Consult Urgent
Reason for Consult: possible attempted overdose
05/18/24 15:31
Acetaminophen Urgent
Alcohol Urgent
Complete Blood Count/With Diff Urgent
Comprehensive Metabolic Panel Urgent
HCG, Serum Qualitative Screen Urgent
Salicylate Urgent
Abnormal Lab Results
05/18/24
15:31
Hct 47.2 H %
(37.0-47.0)
MCHC 32.4 L g/dL
(33.0-37.0)
RDW 14.6 H %
(11.5-14.5)
Absolute Lymphs (auto) 0.7 L 10^3/uL
(1.2-3.4)
Lymphocytes % 11.8 L %
(20.5-51.1)
Carbon Dioxide 33 H mmol/L
(22-30)
BUN 18 H mg/dl
(7-17)
Creatinine 1.1 H mg/dL
(0.6-1.0)
Salicylates < 1.0 L mg/dl
(2.0-20.0)
Acetaminophen < 10 L ug/ml
(10-30)
05/18/24 15:31
05/18/24 15:31
Vital Signs
Initial and Last Documented VS:
Initial Vital Signs
Pulse Resp Pulse Ox
62 23 100
05/18/24 14:36 05/18/24 14:36 05/18/24 14:36
Last Documented Vital Signs
Temp Pulse Resp BP Pulse Ox
97.6 F 63 20 140/96 100
05/18/24 17:53 05/18/24 17:53 05/18/24 17:53 05/18/24 17:53 05/18/24 17:53
<Marques Mojica PA-C - Last Filed: 05/18/24 18:19>
Orders/Labs/Results
Orders:
Orders
05/18/24 14:39
Electrocardiogram (*1) Stat
Reason for Study: Other
Other Reason for Exam: overdose
EKG- Treatment ONCE
Test Result ONCE
05/18/24 14:41
Crisis Consult Urgent
Reason for Consult: possible attempted overdose
05/18/24 15:31
Acetaminophen Urgent
Alcohol Urgent
Complete Blood Count/With Diff Urgent
Comprehensive Metabolic Panel Urgent
HCG, Serum Qualitative Screen Urgent
Salicylate Urgent
Abnormal Lab Results
05/18/24
15:31
Hct 47.2 H %
(37.0-47.0)
MCHC 32.4 L g/dL
(33.0-37.0)
RDW 14.6 H %
(11.5-14.5)
Absolute Lymphs (auto) 0.7 L 10^3/uL
(1.2-3.4)
Lymphocytes % 11.8 L %
(20.5-51.1)
Carbon Dioxide 33 H mmol/L
(22-30)
BUN 18 H mg/dl
(7-17)
Creatinine 1.1 H mg/dL
(0.6-1.0)
Salicylates < 1.0 L mg/dl
(2.0-20.0)
Acetaminophen < 10 L ug/ml
(10-30)
05/18/24 15:31
05/18/24 15:31
Vital Signs
Initial and Last Documented VS:
Initial Vital Signs
Pulse Resp Pulse Ox
62 23 100
05/18/24 14:36 05/18/24 14:36 05/18/24 14:36
Last Documented Vital Signs
Temp Pulse Resp BP Pulse Ox
97.6 F 63 20 140/96 100
05/18/24 17:53 05/18/24 17:53 05/18/24 17:53 05/18/24 17:53 05/18/24 17:53
<Dwaine Murry PA-C - Last Filed: 05/18/24 16:38>
MDM/Problems Addressed
Differential Diagnosis Includes:
Accidental overdose, intentional overdose, patient does have a history of attention seeking behavior and previous intentional overdoses in the past admitting she prefers to be evaluated and seen in the emergency department over being home
MDM/Problems Addressed:
48-year-old female presenting to the emergency department reporting an ingestion noting she took 29 tablets of 25 mg Benadryl. This occurred at 9 AM. Patient not exhibiting any signs of somnolence. Currently hemodynamically stable. History of
similar. Will initiate toxicology workup. Patient currently denying any suicidal ideations. Will have crisis evaluate patient once medically cleared. Case management consult also ordered due to patient's living situation presently.
Chronic conditions affecting care: Other (Developmental delay)
<Dwaine Murry PA-C - Last Filed: 05/18/24 16:38>
*Pulse Oximetry
Patient hypoxic: no
<Marques Mojica PA-C - Last Filed: 05/18/24 18:19>
*Critical Care Note
Total Time (30-74mins, 75-104mins- exclusive of procedures): Not Applicable
<Dwaine Murry PA-C - Last Filed: 05/18/24 16:38>
Patient Management
Social determinants of health affecting care: Living situation
Escalation/DeEscalation of care consider admission/obs:
Patient's labs returning reassuring. Patient remains awake alert and oriented. She is in no acute distress. Seen by crisis staff who cleared patient for discharge home. I spoke to patient's father via telephone who can come to the emergency
department to pick the patient up and take her home. At this time I do not have any further medical concern and patient is stable for discharge.
<Marques Mojica PA-C - Last Filed: 05/18/24 18:19>
Update Note
Update Note:
[id number]: called ot the room to assess pt. Nursing staff found pt on floor of bathroom, not responding to verbal stimuli but awoke to tactile stimuli. When questioned she states 'fainted' however there are no signs of external trauma on exam. She denies
pain at this time. Assisted back to bed to await pickup
ED Attending Note
<Dwaine Murry PA-C - Last Filed: 05/18/24 16:38>
-
Portions of this chart may have been created with voice recognition software.� Occasional wrong word or��sound alike� substitutions may have occurred due to the inherent limitations of voice recognition software.
Discharge Plan
Departure
Patient Disposition: Home (Routine Discharge)
Date of Disposition: 05/18/24
Time of Disposition: 16:31
Patient with high blood pressure during this ER visit?: No
Discharge Problem:
Behavioral disorder
Instructions: Adjustment disorder
Prescriptions:
No Action
escitalopram oxalate 10 mg Tablet
10 mg PO DAILY
Referrals:
Marlon Mina DO [Family Provider] -
Interventions
Interventions:
*Risk Screen - Suicide Last Done: 05/18/24 14:47
*General Assessment Last Done: 05/18/24 14:38
*Neglect/Abuse Screening Last Done: 05/18/24 14:47
*ED- Fall Risk Assessment Last Done: 05/18/24 16:48
*ED COVID-19 Vaccine History Last Done: 05/18/24 14:47
*Nursing Disposition Last Done: 05/18/24 17:53
ED- Cardiac Assessment Last Done: 05/18/24 14:47
ED- Neurological Assessment Last Done: 05/18/24 14:47
ED-Psychological Assessment Last Done: 05/18/24 14:47
ED- Pulmonary Assessment Last Done: 05/18/24 14:47
Discharge Date and Time
Discharge Date/Time: 05/18/24 17:55
Print Language: UKRAINIAN
[2024-05-18 15:00] VITALS: BP 132/84
[2024-05-18 15:43] LABS: % Basophils 1.1 % (0-2); % Eosinophils 4.4 % (0-6); % Immature Granulocytes 0.2 % (0-0.5); % Lymphocytes 11.8 % (20.5-51.1); % Monocytes 7.4 % (1.7-9.3); % Neutrophils 75.1 % (42.2-75.2); Absolute Basophils 0.1 10^3/uL (0-0.2); Absolute Eosinophils 0.3 10^3/uL (0-0.7); Absolute Lymphocytes 0.7 10^3/uL (1.2-3.4); Absolute Monocytes 0.5 10^3/uL (0.1-0.6); Absolute Neutrophils 4.6 10^3/uL (1.4-6.5); Hematocrit 47.2 % (37.0-47.0); Hemoglobin 15.3 g/dL (12.0-16.0); Mean Corp Hgb Conc. 32.4 g/dL (33.0-37.0); Mean Corpuscular Hgb 30.7 pg (27.0-31.0); Mean Corpuscular Volume 94.6 fL (81.0-99.0); Nucleated Red Blood Cells % 0 %; Platelet Count 185 10^3/uL (130-400); Red Blood Cell Count 4.99 10^6/uL (4.20-5.40); Red Cell Dist. Width 14.6 % (11.5-14.5); White Blood Cell Count 6.2 10^3/uL (4.8-10.8)
[2024-05-18 15:54] LABS: HCG, Serum Qualitative Screen Negative
[2024-05-18 15:57] LABS: ALT (SGPT) 21 U/L (0-35); AST (SGOT) 22 U/L (14-36); Acetaminophen < 10 ug/ml (10-30); Alkaline Phosphatase 110 U/L (38-126); Blood Urea Nitrogen 18 mg/dl (7-17); Calcium 9.2 mg/dl (8.4-10.2); Carbon Dioxide 33 mmol/L (22-30); Chloride 106 mmol/L (98-107); Estimated Creatinine Clearance 75 ml/min; Glucose 94 mg/dl (70-99); Potassium 4.5 mmol/L (3.5-5.1); Salicylate < 1.0 mg/dl (2.0-20.0); Sodium 145 mmol/L (135-145); Total Bilirubin 0.3 mg/dl (0.2-1.3); Total Protein 7.5 g/dl (6.3-8.2); eGFR > 60.00
[2024-05-18 17:18] VITALS: BP 140/95
--- NOTE | 2024-05-18 17:23 | EDRN ---
Pt assisted to BR by tech. When RN went to check on pt, pt observed laying on floor near toilet. Eyes open, initially would not respond to RN. Conversation turned to pt's favorite TV show at which time pt engaged in conversation. No obvious
signs of trauma. VSS. Neuro exam within baseline. PA-Claudio to room for examination. Pt is aware her father is coming to pick her up for discharge to home. Per previous records, pt exhibits similar behavior when discharge from ED is imminent. Will
continue to monitor. Curtain open and pt visible from nurses station.
[2024-05-18 17:53] VITALS: BP 140/96
== END 2024-05-18 17:55 | disposition home or self-care (01) ==
LOC: EMR 14:31
PROVIDERS: Physician Assistant Medical; EMERGENCY PHYSICIAN Emergency Medicine; FAMILY PHYSICIAN Family Medicine
DX: F91.9 Conduct disorder, unspecified (principal); Q90.9 Down syndrome, unspecified; Q24.9 Congenital malformation of heart, unspecified; E03.9 Hypothyroidism, unspecified; E66.01 Morbid (severe) obesity due to excess calories; F32.A Depression, unspecified; G47.33 Obstructive sleep apnea (adult) (pediatric); I27.20 Pulmonary hypertension, unspecified
CPT/HCPCS: 99283; 80053; 80143; 80179; 82077; 84703; 85025; 93005

== ENCOUNTER 2024-06-07 10:14 | Emergency (ER) | payer OTHER, MEDICAID, SELFPAY ==
[2024-06-07 10:17] VITALS: BP 111/74
[2024-06-07 10:18] VITALS: BP 111/74
--- NOTE | 2024-06-07 10:19 | ED.GENMED ---
History of Present Illness
<XAVIER Vee - Last Filed: 06/07/24 16:13>
General
Chief Complaint: Overdose Intentional
Source: patient and ambulance crew
Exam Limitations: none
Time Seen by Provider: 06/07/24 10:18
Nursing documentation reviewed up to this point in time: agreed with
History of Present Illness
History of Present Illness:
Patient is a 48-year-old female with history of development delay/MR presents to the ER via EMS. As per EMS patient was upset and drank a bottle of phenol sore throat cough spray. Patient was upset because she was post to go to the [facility] and no one
took her there. Patient apparently has done things similar to this in the past.
Patient has no complaints. Patient lives at home with father
Past History
<XAVIER Vee - Last Filed: 06/07/24 16:13>
Past History
ED Past Medical History: Hypothyroidism, Psychiatric (Depression, ), Other (PNA, ), Other and Other (Down syndrome, pulmonary hypertension, SOPHY with CPAP, morbid obesity, )
ED Past Surgical History: Cardiac ([employer] Loop Recorder), Orthopedic (Left leg surgery), Tonsilectomy and Other (heart valve surgery as )
Social History
Tobacco: Non-smoker
Alcohol: None
Drug: None
Personal: Single
Living: with family
Employment: Employed
Review of Systems
<XAVIER Vee - Last Filed: 06/07/24 16:13>
Review of Systems
Allergies reviewed?: Yes
All Other Systems: ROS reviewed and negative except as documented in HPI and ROS
Constitutional: Reports no symptoms
Respiratory: Reports no symptoms
Cardiac: Reports no symptoms
ABD/GI: Reports no symptoms
: Reports no symptoms
Musculoskeletal: Reports no symptoms
Skin: Reports no symptoms
Neurological: Reports no symptoms
Phy Exam
<XAIVER Vee - Last Filed: 06/07/24 16:13>
General Physical Exam
General Presentation: no apparent distress
General age: other (Developed a challenge)
General Skin: warm and dry
General Habitus: obese
General Mental: appears intoxicated
General Hydration: appears well hydrated
Cardiovascular Exam
Cardiovascular Exam: regular rate/rhythm, no murmur and normal peripheral pulses
Pulmonary Exam
Pulmonary Exam: lungs clear
Neurological Exam
Neurological Exam: alert and oriented x3
Musculoskeletal Exam
Musculoskeletal Exam: full ROM
Skin Exam
Skin Exam: normal color and warm/dry
Psychiatric Exam
Psychiatric Exam: normal mood/affect
Course
<XAVIER Vee - Last Filed: 06/07/24 16:13>
Orders/Labs/Results
Orders:
Orders
06/07/24 10:20
1:1 Observation - Suicide/ Violent Behavior As Directed
Crisis Consult Urgent
Reason for Consult: suicide attempt
06/07/24 10:25
Cardiac Monitoring- Treatment ONCE
IV Insert/Care/Rem.- Treatment PRN
06/07/24 10:26
Electrocardiogram (*1) Stat
Reason for Study: Other
Other Reason for Exam: overdose
EKG- Treatment ONCE
Test Result ONCE
06/07/24 10:31
Complete Blood Count/With Diff Urgent
06/07/24 11:02
Acetaminophen Urgent
Alcohol Urgent
Basic Metabolic Panel Urgent
HCG, Serum Qualitative Screen Urgent
Salicylate Urgent
06/07/24 13:00
Urinalysis Reflex To Culture Urgent
Date Specimen was Collected: 06/07/24
Time Specimen was Collected: 12:55
Urine Drug Abuse Screen Urgent
Date Specimen was Collected: 06/07/24
Time Specimen was Collected: 12:55
Abnormal Lab Results
06/07/24 06/07/24
10:31 11:02
RDW 15.4 H %
(11.5-14.5)
Absolute Lymphs (auto) 0.7 L 10^3/uL
(1.2-3.4)
Lymphocytes % 14.4 L %
(20.5-51.1)
Monocytes % 9.9 H %
(1.7-9.3)
BUN 22 H mg/dl
(7-17)
Glucose 104 H mg/dl
(70-99)
Salicylates < 1.0 L mg/dl
(2.0-20.0)
Acetaminophen < 10 L ug/ml
(10-30)
06/07/24 10:31
06/07/24 11:02
Vital Signs
Initial and Last Documented VS:
Initial Vital Signs
Temp Pulse Resp BP Pulse Ox
98.4 F 57 18 111/74 97
06/07/24 10:17 06/07/24 10:17 06/07/24 10:17 06/07/24 10:17 06/07/24 10:17
Last Documented Vital Signs
Temp Pulse Resp BP Pulse Ox
98.4 F 57 22 124/95 97
06/07/24 10:17 06/07/24 13:30 06/07/24 13:30 06/07/24 13:00 06/07/24 13:30
Service Specialist consulted with Physician
Service Specialist consulted with physician?: Yes
Name of Physician Consulted: Alberto
<Gigi Dominguez, DO - Last Filed: 06/07/24 11:41>
Orders/Labs/Results
Orders:
Orders
06/07/24 10:20
1:1 Observation - Suicide/ Violent Behavior As Directed
Crisis Consult Urgent
Reason for Consult: suicide attempt
06/07/24 10:25
Cardiac Monitoring- Treatment ONCE
IV Insert/Care/Rem.- Treatment PRN
06/07/24 10:26
Electrocardiogram (*1) Stat
Reason for Study: Other
Other Reason for Exam: overdose
EKG- Treatment ONCE
Test Result ONCE
06/07/24 10:31
Complete Blood Count/With Diff Urgent
06/07/24 11:02
Acetaminophen Urgent
Alcohol Urgent
Basic Metabolic Panel Urgent
HCG, Serum Qualitative Screen Urgent
Salicylate Urgent
06/07/24 13:00
Urinalysis Reflex To Culture Urgent
Date Specimen was Collected: 06/07/24
Time Specimen was Collected: 12:55
Urine Drug Abuse Screen Urgent
Date Specimen was Collected: 06/07/24
Time Specimen was Collected: 12:55
Abnormal Lab Results
06/07/24 06/07/24
10:31 11:02
RDW 15.4 H %
(11.5-14.5)
Absolute Lymphs (auto) 0.7 L 10^3/uL
(1.2-3.4)
Lymphocytes % 14.4 L %
(20.5-51.1)
Monocytes % 9.9 H %
(1.7-9.3)
BUN 22 H mg/dl
(7-17)
Glucose 104 H mg/dl
(70-99)
Salicylates < 1.0 L mg/dl
(2.0-20.0)
Acetaminophen < 10 L ug/ml
(10-30)
06/07/24 10:31
06/07/24 11:02
Vital Signs
Initial and Last Documented VS:
Initial Vital Signs
Temp Pulse Resp BP Pulse Ox
98.4 F 57 18 111/74 97
06/07/24 10:17 06/07/24 10:17 06/07/24 10:17 06/07/24 10:17 06/07/24 10:17
Last Documented Vital Signs
Temp Pulse Resp BP Pulse Ox
98.4 F 57 22 124/95 97
06/07/24 10:17 06/07/24 13:30 06/07/24 13:30 06/07/24 13:00 06/07/24 13:30
<XAVIER Vee - Last Filed: 06/07/24 16:13>
MDM/Problems Addressed
MDM/Problems Addressed:
48-year-old female with MR presents for evaluation. Patient apparently took a bottle of sore throat spray because she was angry that someone did not take her to the [facility]. Case reviewed with ED physician. Patient presents awake alert no acute
distress ED physician is familiar with patient patient has done this similar behavior in the past. She is well-known to crisis does this behavior often when she is unhappy with certain things. She presents awake alert no acute distress. She has
no physical complaints and her labs unremarkable without any acute findings on EKG. Father was contacted and reports this happens multiple times in the past and this is normal behavior for patient. Pt denies suicidal thoughts.
I spoke to poison control and since patient without any side effects /complaints as discussed with ED physician stable for discharge home
Chronic conditions affecting care:
Developmentally challenged
<XAVIER Vee - Last Filed: 06/07/24 16:13>
*Pulse Oximetry
Patient hypoxic: no
*EKG
Interpreted by ED Provider?: Yes
Heart Rate: 66
Rate: normal
Rhythm: sinus
Ischemia: no ischemia
*Critical Care Note
Total Time (30-74mins, 75-104mins- exclusive of procedures): Not Applicable
ED Attending Note
<XAVIER Vee - Last Filed: 06/07/24 16:13>
-
Portions of this chart may have been created with voice recognition software.� Occasional wrong word or��sound alike� substitutions may have occurred due to the inherent limitations of voice recognition software.
<Gigi Dominguez DO - Last Filed: 06/07/24 11:41>
ED Attending Note
Patient seen and examined by attending physician: Yes
I performed the substantive portion of visit, reviewed & personally made and approve the management plan that is documented in note by myself or PRASHATN.: Yes
ED Attending Note:
I have seen and evaluated the patient with a [id number] encounter. I have spoken to the advance practicer provider and involved in the medical history, the physical exam, medical decision making.
Evaluation and management service: agree unless noted differently below.
Results interpretation: agree unless noted differently below.
Focused HPI: 48-year-old female presenting for suicidal ideation. She states she drank a bottle of cough syrup. However, on arrival, patient is smiling and states that she did not want to hurt herself
Physical exam: Sitting bed comfortably. No acute distress
Medical Decision Making: Crisis did evaluate. Patient does not want to hurt herself. She would not be a great candidate for inpatient psychiatric treatment given her developmental delays. She does not want her to stop the moment.
Discharge Plan
Departure
Patient Disposition: Home (Routine Discharge)
Date of Disposition: 06/07/24
Time of Disposition: 13:44
Patient with high blood pressure during this ER visit?: Yes
Condition: Fair
Covid-19: Not Applicable
Discharge Problem:
Overdose
Prescriptions:
No Action
escitalopram oxalate 10 mg Tablet
10 mg PO DAILY
Referrals:
Marlon Mina DO [Family Provider] -
Activity Restrictions/Additional Instructions:
Patient must be evaluated by her family doctor in the next 2 days.
return if any worsening of symptoms.
Interventions
Interventions:
*Risk Screen - Suicide Last Done: 06/07/24 10:17
*General Assessment Last Done: 06/07/24 10:17
*Neglect/Abuse Screening Last Done: 06/07/24 13:48
*ED- Fall Risk Assessment Last Done: 06/07/24 13:48
*ED COVID-19 Vaccine History Last Done: 06/07/24 10:17
*Nursing Disposition Last Done: 06/07/24 13:48
ED- Cardiac Assessment Last Done: 06/07/24 10:22
ED- Neurological Assessment Last Done: 06/07/24 10:22
ED-Psychological Assessment Last Done: 06/07/24 10:22
ED- Pulmonary Assessment Last Done: 06/07/24 10:22
Discharge Date and Time
Discharge Date/Time: 06/07/24 13:49
Print Language: [place]
[2024-06-07 10:40] LABS: % Basophils 1.4 % (0-2); % Eosinophils 1.8 % (0-6); % Immature Granulocytes 0.4 % (0-0.5); % Lymphocytes 14.4 % (20.5-51.1); % Monocytes 9.9 % (1.7-9.3); % Neutrophils 72.1 % (42.2-75.2); Absolute Basophils 0.1 10^3/uL (0-0.2); Absolute Eosinophils 0.1 10^3/uL (0-0.7); Absolute Lymphocytes 0.7 10^3/uL (1.2-3.4); Absolute Monocytes 0.5 10^3/uL (0.1-0.6); Absolute Neutrophils 3.6 10^3/uL (1.4-6.5); Hematocrit 45.7 % (37.0-47.0); Hemoglobin 15.6 g/dL (12.0-16.0); Mean Corp Hgb Conc. 34.1 g/dL (33.0-37.0); Mean Corpuscular Hgb 30.6 pg (27.0-31.0); Mean Corpuscular Volume 89.6 fL (81.0-99.0); Mean Platelet Volume 9.5 fL (7.4-10.4); Nucleated Red Blood Cells % 0 %; Platelet Count 169 10^3/uL (130-400); Red Cell Dist. Width 15.4 % (11.5-14.5); White Blood Cell Count 4.9 10^3/uL (4.8-10.8)
[2024-06-07 11:34] LABS: HCG, Serum Qualitative Screen Negative
[2024-06-07 12:29] LABS: Acetaminophen < 10 ug/ml (10-30); Alcohol None Detected; Blood Urea Nitrogen 22 mg/dl (7-17); Calcium 8.9 mg/dl (8.4-10.2); Carbon Dioxide 23 mmol/L (22-30); Chloride 103 mmol/L (98-107); Estimated Creatinine Clearance 89 ml/min; Glucose 104 mg/dl (70-99); Salicylate < 1.0 mg/dl (2.0-20.0); Sodium 138 mmol/L (135-145); eGFR > 60.00
[2024-06-07 13:00] VITALS: BP 124/95
[2024-06-07 13:13] LABS: Urine Albumin Negative (Neg - Trace); Urine Bilirubin Negative (Negative); Urine Character Clear (Clear); Urine Color Yellow; Urine Glucose Negative (Negative); Urine Ketone Negative (Negative); Urine Leukocyte Negative (Negative); Urine Nitrite Negative (Negative); Urine Occult Blood Negative (Negative); Urine Specific Gravity 1.005 (<1.030); Urine Urobilinogen Negative (Neg - 1+)
[2024-06-07 13:28] LABS: Amphetamines Negative (Negative); Barbiturates Negative (Negative); Benzodiazepines Negative (Negative); Buprenorphine Negative (Negative); Cocaine Negative (Negative); Marijuana Negative (Negative); Methadone Negative (Negative); Methamphetamines Negative (Negative); Opiates Negative (Negative); Phencyclidine Negative (Negative); Tricyclic Antidepressants Negative (Negative)
== END 2024-06-07 13:49 | disposition home or self-care (01) ==
LOC: EMR 10:14
PROVIDERS: Nurse Practitioner; EMERGENCY PHYSICIAN Student in an Organized Health Care Education/Training Program; FAMILY PHYSICIAN Family Medicine
DX: T49.1X Poisoning by, adverse effect of and underdosing of antipruritics (principal); X58.XXXA Exposure to other specified factors, initial encounter; Q90.9 Down syndrome, unspecified; F79 Unspecified intellectual disabilities; E03.9 Hypothyroidism, unspecified; G47.33 Obstructive sleep apnea (adult) (pediatric)
CPT/HCPCS: 99284; 80048; 80143; 80179; 80306; 81003; 82077; 84703; 85025; 93005

== ENCOUNTER → 2024-10-22 11:07 | Outpatient (REF) | payer OTHER, MEDICAID, SELFPAY | LOC: HWWDC 11:07 | PROVIDERS: ATTENDING PHYSICIAN Family Medicine | DX: Z12.31 Encounter for screening mammogram for malignant neoplasm of breast (principal) | CPT/HCPCS: 77063; 77067 ==

== ENCOUNTER → 2024-11-17 09:10 | Outpatient (REF) | payer OTHER, MEDICAID, SELFPAY | LOC: HWRCS 09:10 | PROVIDERS: ATTENDING PHYSICIAN Internal Medicine Cardiovascular Disease; FAMILY PHYSICIAN Family Medicine | DX: I42.8 Other cardiomyopathies (principal); R55 Syncope and collapse | CPT/HCPCS: 93306 ==

== ENCOUNTER 2025-02-08 14:54 | Inpatient (IN) | payer OTHER, MEDICAID, SELFPAY ==
[2025-02-08] VITALS (9 sets, daily range): BP systolic 118–147; BP diastolic 52–92; BMI 46.4
[2025-02-08] MEDS: NSS 1000 IV (11:59)
--- NOTE | 2025-02-08 12:12 | ED.GENMED ---
History of Present Illness
<Jc Conteh DO, Resident - Last Filed: 02/08/25 13:21>
General
Chief Complaint: Overdose Intentional
Source: patient
Exam Limitations: other (developmental delay)
Time Seen by Provider: 02/08/25 11:52
Nursing documentation reviewed up to this point in time: agreed with
History of Present Illness
History of Present Illness:
Cha Rodríguez is a 49-year-old female with a past medical history of developmental delay, pulmonary hypertension, hypothyroidism, prediabetes mellitus, depression who presents for unintentional overdose. Patient was brought in by EMS. Family not at
bedside during the time of my interview. Patient states she took 2 bottles of Tylenol each night for the last 2 nights. She does not know the strength or the number of pills in each of the bottles. She states that she has never taken Tylenol in
the past before. When asked why she had taken that much Tylenol, she originally stated that she was having frontal headaches. However with additional questioning, patient admitted to wanting to harm herself. Patient notes that her mother 13
years ago last Friday and that this anniversary caused her to want her harm herself. Additional symptoms include 1 episode of dizziness last night. Patient endorses a chronic shortness of breath that is unchanged from prior. Patient also
endorses left-sided abdominal pain that is more recent. She states she vomited 1 time, clear vomitus, approximately 4 hours ago.
Past History
<Jc Conteh DO, Resident - Last Filed: 02/08/25 13:21>
Past History
ED Past Medical History: Hypothyroidism, Psychiatric (Depression, ), Other (PNA, ), Other and Other (Down syndrome, pulmonary hypertension, SOPHY with CPAP, morbid obesity, )
ED Past Surgical History: Cardiac ([employer] Loop Recorder), Orthopedic (Left leg surgery), Tonsilectomy and Other (heart valve surgery as )
Social History
Tobacco: Non-smoker
Alcohol: None
Drug: None
Personal: Single
Living: with family
Employment: Employed
Review of Systems
<Jc Conteh DO, Resident - Last Filed: 02/08/25 13:21>
Review of Systems
All Other Systems: ROS reviewed and negative except as documented in HPI and ROS
Phy Exam
<Jc Conteh DO, Resident - Last Filed: 02/08/25 13:21>
Physical Exam
Physical Exam:
General: Pleasant developmentally delayed female in no acute distress. Elevated BMI.
HEENT: Disconjugate gaze, sclera anicteric.
CV: Regular rhythm, no murmurs, rubs, gallops; bradycardia, sinus on monitor.
Resp: CTAB, no wheezing, rales, rhonchi
Abdomen: Postive bowel sounds, soft, nondistended. Moderately tender to palpation in the LLQ, all other quadrants NTTP.
Neuro: Awake, alert, AOx3, moving all 4s
Psych: Calm, normal affect
Scores
<Jc Conteh DO, Resident - Last Filed: 02/08/25 13:21>
Heart Failure Risk
Heart Failure Risk Score: Not Applicable
Heart Score for Chest Pain Patients
STEMI patient?: Not applicable
Withdrawal Assessment of Alcohol
Withdrawal Assessment Completed?: Not applicable
Course
<Jc Conteh DO, Resident - Last Filed: 02/08/25 13:21>
Orders/Labs/Results
Orders:
Orders
02/08/25 11:52
0.9% Sodium Chloride 1000 ml [Nss] 1,000 ml IV BOLUS
02/08/25 11:54
Test Result ONCE
02/08/25 11:57
Acetaminophen Urgent
Complete Blood Count/With Diff Urgent
Comprehensive Metabolic Panel Urgent
HCG, Serum Qualitative Screen Urgent
PTT Urgent
Prothrombin Time Urgent
Salicylate Urgent
02/08/25 12:41
Urine Drug Abuse Screen Urgent
Date Specimen was Collected: 02/08/25
Time Specimen was Collected: 12:39
02/08/25 12:46
Acetylcysteine [Acetadote] 4,860 mg 0.45% Sodium Chloride 500 ml [0.45%NaCl] 500 ml IV ONCE
Acetylcysteine [Acetadote] 9,720 mg 0.45% Sodium Chloride 1000 ml [0.45%NaCl] 1,000 ml IV ONCE
02/08/25 12:57
Acetylcysteine [Acetadote] 14,580 mg 0.45% Sodium Chloride 250 ml [0.45%NaCl] 200 ml IV NOW
Abnormal Lab Results
02/08/25
11:57
WBC 3.4 L 10^3/uL
(4.8-10.8)
MCHC 32.2 L g/dL
(33.0-37.0)
RDW 16.4 H %
(11.5-14.5)
Absolute Lymphs (auto) 0.6 L 10^3/uL
(1.2-3.4)
Lymphocytes % 18.2 L %
(20.5-51.1)
BUN 18 H mg/dl
(7-17)
Salicylates < 1.0 L mg/dl
(2.0-20.0)
Acetaminophen 50 H ug/ml
(10-30)
02/08/25 11:57
02/08/25 11:57
Vital Signs
Initial and Last Documented VS:
Initial Vital Signs
Temp Pulse Resp BP Pulse Ox
98.6 F 54 16 124/69 96
02/08/25 11:01 02/08/25 11:01 02/08/25 11:01 02/08/25 11:01 02/08/25 11:01
Last Documented Vital Signs
Temp Pulse Resp BP Pulse Ox
98.6 F 54 16 124/69 99
02/08/25 11:01 02/08/25 11:01 02/08/25 11:01 02/08/25 11:01 02/08/25 12:14
<Kush Harper Pam, DO - Last Filed: 02/08/25 13:18>
Orders/Labs/Results
Orders:
Orders
02/08/25 11:52
0.9% Sodium Chloride 1000 ml [Nss] 1,000 ml IV BOLUS
02/08/25 11:54
Test Result ONCE
02/08/25 11:57
Acetaminophen Urgent
Complete Blood Count/With Diff Urgent
Comprehensive Metabolic Panel Urgent
HCG, Serum Qualitative Screen Urgent
PTT Urgent
Prothrombin Time Urgent
Salicylate Urgent
02/08/25 12:41
Urine Drug Abuse Screen Urgent
Date Specimen was Collected: 02/08/25
Time Specimen was Collected: 12:39
02/08/25 12:46
Acetylcysteine [Acetadote] 4,860 mg 0.45% Sodium Chloride 500 ml [0.45%NaCl] 500 ml IV ONCE
Acetylcysteine [Acetadote] 9,720 mg 0.45% Sodium Chloride 1000 ml [0.45%NaCl] 1,000 ml IV ONCE
02/08/25 12:57
Acetylcysteine [Acetadote] 14,580 mg 0.45% Sodium Chloride 250 ml [0.45%NaCl] 200 ml IV NOW
Abnormal Lab Results
02/08/25
11:57
WBC 3.4 L 10^3/uL
(4.8-10.8)
MCHC 32.2 L g/dL
(33.0-37.0)
RDW 16.4 H %
(11.5-14.5)
Absolute Lymphs (auto) 0.6 L 10^3/uL
(1.2-3.4)
Lymphocytes % 18.2 L %
(20.5-51.1)
BUN 18 H mg/dl
(7-17)
Salicylates < 1.0 L mg/dl
(2.0-20.0)
Acetaminophen 50 H ug/ml
(10-30)
02/08/25 11:57
02/08/25 11:57
Vital Signs
Initial and Last Documented VS:
Initial Vital Signs
Temp Pulse Resp BP Pulse Ox
98.6 F 54 16 124/69 96
02/08/25 11:01 02/08/25 11:01 02/08/25 11:01 02/08/25 11:01 02/08/25 11:01
Last Documented Vital Signs
Temp Pulse Resp BP Pulse Ox
98.6 F 54 16 124/69 99
02/08/25 11:01 02/08/25 11:01 02/08/25 11:01 02/08/25 11:01 02/08/25 12:14
<Jc Conteh DO, Resident - Last Filed: 02/08/25 13:21>
MDM/Problems Addressed
Differential Diagnosis Includes:
Acetaminophen overdose, other medication overdose, DILI, intentional overdose
MDM/Problems Addressed:
49-year-old female with a past medical history of developmental delay presents for intentional overdose. It appears she has had multiple attempted ODs in the past on chart review. Patient states she took 2 bottles of Tylenol each night for the last
2 nights. Presented in no acute distress and hemodynamically stable. On examination, patient with sinus bradycardia that is chronic and mild left-sided abdominal pain that is variable and inconsistent. hCG negative. Start IV fluid, obtain Tylenol
level, CBC, BMP, LFTs, salicylate level, PT/PTT. Bottle was retrieved from home, 625mg strength, one bottle with 24 pills. Tylenol level 50ug/mL. CBC, BMP, LFTs, PT/PTT/INR otherwise unremarkable.
Contacted Toxicology at [facility]. Recommend NAC and admission with stopping criteria including: repeat CMP 3 hours prior to end of NAC protocol and if AST/ALT negative and tylenol level < 10ug/mL, then can stop NAC.
Plan to admit to hospitalist for inpatient NAC protocol.
Chronic conditions affecting care:
Developmental delay
<Jc Conteh DO, Resident - Last Filed: 02/08/25 13:21>
*Pulse Oximetry
SaO2: 99
Oxygen Mode of Delivery: Room air
Patient hypoxic: no
*Critical Care Note
Total Time (30-74mins, 75-104mins- exclusive of procedures): Not Applicable
ED Attending Note
<Jc Conteh DO, Resident - Last Filed: 02/08/25 13:21>
-
Portions of this chart may have been created with voice recognition software.� Occasional wrong word or��sound alike� substitutions may have occurred due to the inherent limitations of voice recognition software.
<Kush Orozco, DO - Last Filed: 02/08/25 13:18>
ED Attending Note
Patient seen and examined by attending physician: Yes
I performed the substantive portion of visit, reviewed & personally made and approve the management plan that is documented in note by myself or PRASHANT.: Yes
ED Attending Note:
I evaluated patient at bedside. She states that she overdosed on Tylenol in an attempt to kill herself trying this twice over the last few days. She is hemodynamically stable. Tylenol level 50 but based on the nomogram I am concerned about this
level as she states that the ingestion was over 12 hours ago and had another ingestion the day prior. Planning to initiate NAC and admission to the hospital.
Discharge Plan
Departure
Patient Disposition: Admit
Date of Disposition: 02/08/25
Time of Disposition: 13:08
Admit to: Med/Surg
Admit to doctor: Marques Yi
Presentation/result/management discussed w/ accepting MD/DO: Hospitalist
Patient with high blood pressure during this ER visit?: No
Condition: Fair
Discharge Problem:
Acetaminophen overdose, Intentional overdose
Prescriptions:
No Action
escitalopram oxalate 10 mg Tablet
10 mg PO DAILY
Referrals:
UNKNOWN - PT NOT,INTERVIEWE [Family Provider]
Interventions
Interventions:
*General Assessment Last Done: 02/08/25 11:01
*Neglect/Abuse Screening Last Done: 02/08/25 11:01
[facility] Fall Risk Assessment Tool Last Done: 02/08/25 11:07
ED- Cardiac Assessment Last Done: 02/08/25 11:07
ED- Neurological Assessment Last Done: 02/08/25 11:07
ED-Psychological Assessment Last Done: 02/08/25 11:07
ED- Pulmonary Assessment Last Done: 02/08/25 11:07
Discharge Date and Time
Print Language: URDU
[2025-02-08 12:21] LABS: Hematocrit 45.1 % (37.0-47.0); Hemoglobin 14.5 g/dL (12.0-16.0); Mean Corp Hgb Conc. 32.2 g/dL (33.0-37.0); Mean Corpuscular Volume 94.5 fL (81.0-99.0); Nucleated Red Blood Cells % 0 %; Platelet Count 172 10^3/uL (130-400); Red Cell Dist. Width 16.4 % (11.5-14.5)
[2025-02-08 12:24] LABS: HCG, Serum Qualitative Screen Negative
[2025-02-08 12:29] LABS: APTT 34.5 Sec (23.4-35.0); INR 1.11; PT 14.4 Sec (11.4-14.6)
[2025-02-08 12:35] LABS: ALT (SGPT) 25 U/L (0-35); AST (SGOT) 28 U/L (14-36); Acetaminophen 50 ug/ml (10-30); Albumin 4.0 g/dl (3.5-5.0); Alkaline Phosphatase 75 U/L (38-126); Blood Urea Nitrogen 18 mg/dl (7-17); Calcium 8.7 mg/dl (8.4-10.2); Carbon Dioxide 24 mmol/L (22-30); Chloride 105 mmol/L (98-107); Glucose 92 mg/dl (70-99); Potassium 4.4 mmol/L (3.5-5.1); Salicylate < 1.0 mg/dl (2.0-20.0); Sodium 136 mmol/L (135-145); Total Protein 7.4 g/dl (6.3-8.2); eGFR > 60.00
[2025-02-08] MEDS: ACETADOTE 272.9 MG IV (13:28)
[2025-02-08] MEDS: ZOFRAN 4 MG IV (14:28)
[2025-02-08] MEDS: ACETADOTE 524.3 MG IV (16:09)
--- NOTE | 2025-02-08 17:40 | HPS.HSE ---
Addendum entered and electronically signed by Jabier Perea MD 02/08/25 20:49:
Attending Addendum-
I performed a history and physical exam of the patient and discussed his management with the resident. I reviewed the resident's note and agree with the documented findings and plan of care CC/HPI- Patient brought in by EMS due to tylenol OD.
Patient is a good historian. States that she took 24 extra strength tylenol tables 2 nitghts ago and 24 tablets last night.Patient had vomitted x 1 in ED and 1 episode prior to ED arrival. non billios non bloody. Patient let father know and EMS was
called immediately. Patient has had had multiple prior suicide attempts. First time using tylenol. 'I wanted to ' Currently patient denies SI or HI. Full 12 point ROS reviewed and negative except as documented Exam- vitals reviewed in EMR
GEN-NAD heart RRR no MRG lungs clear abd soft NT ND pos BS. LE no edema Neuro AAO x 3
Plan:
# Acetaminophen OD-intentional
- start NAC protocol
- monitor LFTs INR q 6
- check acetaminophen level in am
- c/s psych and crisis management
- will benefit from IP psych admission
- cont 1:1 observation
# Hypothyroidism- check TSH cont levothyroxine
# HLD- hold zetia
# Depression- cont lexapro
CODE Full- verified with POA
DVTp-lovenox
Dispo-24-48 hours
ACP
Patient consented to discuss, was alone but verified with POA, time spent explanation of advance directives, changes in health status, patient�s health care wishes if the patient becomes unable to make health decisions, goals of care, code status,
and prognosis- 16 minutes
Time spent coordinating care, review of plan of care with resident, personally reviewed previous records in EMR, med rec, labs, radiology, d/w nursing, family total time documented is exclusive of any additional time listed that was spent in advance
care planning discussion -�75 minutes
Original Note:
Family Physician
-
Family Physician: Topkis, Marlon
Chief Complaint
-
Acetaminophen overdose
History of Present Illness
Ms. Rodríguez is a 49-year-old female brought in by EMS today with a past medical history of developmental delay, pulmonary hypertension, hypothyroidism, prediabetes mellitus, depression who presents for unintentional overdose of acetaminophen. Family
not at bedside during the time of my interview . Patient states she took 1 bottles of Tylenol each night for the last 2 nights one bottle last night and the other bottle on Friday night total of 48 tablets and each tablet 650mg. She does not know
the strength or the number of pills in each of the bottles but she brought the bottle with her. She states that she has never taken Tylenol in the past before. When asked why she had taken that much Tylenol, she states that her mother 13
years ago and on 02/04 her mother anniversary caused her to want her harm herself. She states she vomited 1 time, clear vomitus, approximately 4 hours ago before she came to the ER and one episode at the ER. She denies abdominal pain, change
in bowel movements. I spoke with the her Father over the phone and confirmed the code status (full code) and he stated that she had multiple attempt to overdose herself with meds and went to ER multiple times and needed one time admission.
Medical History
Past Medical History
Past Medical History: Reports Hypothyroidism
Additional Past Medical History:
developmental delay / Down syndrome, pulmonary hypertension, prediabetes mellitus, Depression, SOPHY on CPAP, Morbid obesity
Past Surgical History: Reports Orthopedic (left leg surgery) and Tonsilectomy
Additional Past Surgical History:
[employer] loop recorder, heart valve surgery as infant
Social History
Unable to obtain full social history at this time due to: Other (developmental delay )
Tobacco: Non-smoker
Alcohol: None
Drug: None
Personal: Single
Living: With Family (with her father)
Employment: Employed
Family History
Family History: Not pertinent
Allergies / Home Medications
Allergies reflects when Allergies were last updated in [facility].
Home
Allergies
Allergy/AdvReac Type Severity Reaction Status Date / Time
penicillin G (Penicillin G) Allergy Rash-tolerated Verified 02/08/25 11:00
ceftriaxone
in 2022
Home Medications
escitalopram oxalate 10 mg tablet 10 mg PO DAILY 09/21/23
ascorbic acid (vitamin C) 1,000 mg tablet (Vitamin C) 1,000 mg PO DAILY 02/08/25
ezetimibe 10 mg tablet 10 mg PO DAILY 02/08/25
levothyroxine 125 mcg tablet 125 mcg PO DAILY 02/08/25
Medications with original date entered in [facility]
Allergy/Medication List:
Allergies
Allergy/AdvReac Type Severity Reaction Status Date / Time
penicillin G (Penicillin G) Allergy Rash-tolerated Verified 02/08/25 11:00
ceftriaxone
in 2022
Home Medications
escitalopram oxalate 10 mg tablet 10 mg PO DAILY 09/21/23
ascorbic acid (vitamin C) 1,000 mg tablet (Vitamin C) 1,000 mg PO DAILY 02/08/25
ezetimibe 10 mg tablet 10 mg PO DAILY 02/08/25
levothyroxine 125 mcg tablet 125 mcg PO DAILY 02/08/25
Review of Systems
-
History Source: Patient
Constitutional: Reports No Symptoms
Respiratory: Reports No Symptoms
Cardiac: Reports No Symptoms
Abdomen/GI: Reports Vomiting
Neurological: Reports No Symptoms
Psych: Reports Calm and Depression
Physical Exam
Vital Signs
Vital Signs
Temp Pulse Resp BP Pulse Ox
98.6 F 71 14 120/66 92
02/08/25 11:01 02/08/25 16:15 02/08/25 16:15 02/08/25 15:00 02/08/25 15:45
Physical Exam
General: Well Developed, Well Nourished, No Apparent Distress and Morbidly Obese
HEENT: NormoCephalic, Anicteric and Moist mucous membranes
Respiratory: Clear
Cardiac: S1/S2 and Regular Rhythm
GI: Soft, Non Tender, Non Distended and No Hepatosplenomegaly
Musculoskeletal: No Clubbing and No Edema
Neuro: Awake, Alert and Oriented
Psych: Calm
Laboratory Results
-
02/08/25 11:57
Laboratory Results
PT 14.4 Sec (11.4-14.6) 02/08/25 11:57
INR 1.11 02/08/25 11:57
APTT 34.5 Sec (23.4-35.0) 02/08/25 11:57
Total Bilirubin 0.5 mg/dl (0.2-1.3) 02/08/25 11:57
AST 28 U/L (14-36) 02/08/25 11:57
ALT 25 U/L (0-35) 02/08/25 11:57
Alkaline Phosphatase 75 U/L (38-126) 02/08/25 11:57
Impression/Plan
-
IMPRESSION:
49-year-old female with a past medical history of developmental delay presents to the ER by EMS with intentional overdose of the acetaminophen. Per her father who i spoke with him over the phone that she has had multiple attempts in the past.
Patient states she took 2 bottles of Tylenol each night for the last 2 nights. Presented in no acute distress and hemodynamically stable. Last Ingestion 12 hours ago.
Started on IV fluid, obtain Tylenol level 50, CBC, BMP, LFTs, salicylate level, PT/PTT unremarkable . Bottle was retrieved from home, 625mg strength, one bottle with 24 pills.
Pt admitted inpatient for NAC protocol
PLAN:
#Acetaminophen overdose
started IV fluids
started on NAC protocol
check CMP q6 hours
check INR, PT , lactic acid each day
Psychiatrist consult for intentional overdose
#Nausea
Likely related to to acetaminophen overdose
Continue zofran as needed
#Depression
continue escitalopram
Psychiatrist consult for intentional overdose
#Hypothyroidism
continue levothyroxine
#Hyperlipidemia
ezetimibe held
Regular diet
DVT -Lovenox sc
code status- Full code
--- NOTE | 2025-02-08 17:49 | EDCM ---
Reviewed chart and met with pt bedside in ED. Lives with her father in [address] [place], [address].
Independent in ADLs, personal care and ambulation at baseline. No assistive devices, no DME in home.
Confirms prescription coverage.
Hx [facility], no hx SNF
PCP: Dr Lewis
Pharmacy: [facility]
CM will continue to follow for all discharge planning needs.
[2025-02-08 18:08] LABS: INR 1.27; PT 16.0 Sec (11.4-14.6)
[2025-02-08 18:34] LABS: Blood Urea Nitrogen 14 mg/dl (7-17); Calcium 8.0 mg/dl (8.4-10.2); Carbon Dioxide 23 mmol/L (22-30); Chloride 107 mmol/L (98-107); Glucose 102 mg/dl (70-99); Potassium 4.2 mmol/L (3.5-5.1); Sodium 136 mmol/L (135-145); eGFR > 60.00
[2025-02-08] MEDS: LOVENOX 40 MG SC (19:25)
--- NOTE | 2025-02-08 20:40 | PTCARENOTE ---
Pt received from ED via stretcher at 1999. Pt pleasant, AAOx3, VSS, and able to ambulate into room without assistance. Pt receptive to room and call nuno. Pt bed in lowest position and call nuno within reach. Pt educated on importance of call nuno
usage, pt relays understanding and cooperation. 1:1 sitting in room with pt as pt had a suicidal attempt and/SI. Will continue with current plan of care.
[2025-02-08] MEDS: SYNTHROID 125 MCG PO (21:44)
[2025-02-08] MEDS: ACETADOTE 1048.6 MG IV (21:45)
[2025-02-08] MEDS: LEXAPRO 10 MG PO (21:45)
[2025-02-09 00:15] VITALS: PULSE 70
[2025-02-09 02:59] LABS: Blood Urea Nitrogen 12 mg/dl (7-17); Calcium 8.2 mg/dl (8.4-10.2); Carbon Dioxide 22 mmol/L (22-30); Chloride 108 mmol/L (98-107); Estimated Creatinine Clearance 97 ml/min; Glucose 86 mg/dl (70-99); Potassium 3.9 mmol/L (3.5-5.1); Sodium 136 mmol/L (135-145); eGFR > 60.00
[2025-02-09] MEDS: SYNTHROID 125 MCG PO (06:17)
[2025-02-09 07:00] VITALS: BP 103/66
[2025-02-09 07:04] LABS: GGTP < 10 U/L (12-43)
[2025-02-09] MEDS: LEXAPRO 10 MG PO (08:16)
[2025-02-09 08:19] LABS: INR 1.20; PT 15.0 Sec (11.4-14.6)
[2025-02-09 08:47] LABS: TSH 0.02 uIU/ml (0.47-4.68)
[2025-02-09 10:14] LABS: Alkaline Phosphatase 54 U/L (38-126); Blood Urea Nitrogen 9 mg/dl (7-17); Calcium 8.1 mg/dl (8.4-10.2); Carbon Dioxide 22 mmol/L (22-30); Chloride 108 mmol/L (98-107); Estimated Creatinine Clearance 76 ml/min; Glucose 128 mg/dl (70-99); Potassium 3.9 mmol/L (3.5-5.1); Sodium 135 mmol/L (135-145); eGFR > 60.00
[2025-02-09 10:15] LABS: ALT (SGPT) 19 U/L (0-35); AST (SGOT) 18 U/L (14-36); Acetaminophen < 10 ug/ml (10-30); Albumin 3.2 g/dl (3.5-5.0); Magnesium 1.8 mg/dl (1.6-2.3); Total Protein 6.1 g/dl (6.3-8.2)
[2025-02-09 12:52] LABS: Blood Urea Nitrogen 11 mg/dl (7-17); Calcium 8.3 mg/dl (8.4-10.2); Carbon Dioxide 25 mmol/L (22-30); Chloride 106 mmol/L (98-107); Estimated Creatinine Clearance 76 ml/min; Glucose 121 mg/dl (70-99); Potassium 4.2 mmol/L (3.5-5.1); Sodium 134 mmol/L (135-145); eGFR > 60.00
[2025-02-09 15:00] VITALS: BP 109/57
--- NOTE | 2025-02-09 15:39 | CON.MD ---
Addendum entered and electronically signed by James Aaron MD 02/09/25 16:08:
spoke to dad. he reports patient gets upset at anniversary dates related to mother's . dad also shared a lot of complaints about home care personnel who disappointed mainor by not showing etc. they have 29 hours of help approved but only get
about seven. he also says mainor is very capable and he depends on her to do a lot of things around the home as he is 85 and has trouble getting around. he said generally she is very pleasant and capable. advised him to please double lock all of
the meds in the home. he said he was locking them in his room but sometimes the door was open. he also does not believe she took so many pills as she claims. he has services through [facility]. he is hoping for a rapid dc from hospital we talked about
lexapro. he said he has been told she may not need it. will cut back to 5 mg w plan to consider dc
Original Note:
Consultation - Medical
-
patient seen chart reviewed. this consult is being done today february 09 2025. the patient is a 49 year old woman known to me from prior admits to under similar circumstances. she has several times taken or claimed to take overdoses of various
medications maintaining that she wanted to . she has down's syndrome and lives with her father. contrary to one of the notes in this admit i did not find her to be a good historian and it was diffcult at times to understand her speech. she did
tell me she took 'two bottles' of tylenol which she found in her father's room and ten minutes later she told her father. her tylenol level on admit was under ten. the patient's mother thirteen years ago. when i asked her why she wanted to
she told me that was why. she also said she wanted to go home and that she was glad she was okay. she is oriented x3. she knew cherelle was upon us. she told me the president of the [employer] was '[facility]'. she is taking lexapro 10 mg. not clear if
it is family md prescribing. noted in the record dr blair had recommended that it be dc'ed. patient is sleeping she says well. she laughed when i asked her if she was eating well (she is quite overweight). she says she can enjoy watching tv.
she is not at this moment having suicidal thoughts.
past psyc hx according to my prior note patient started lexapro when her mom . no psych hospitalizations but several apparent od attempts. she has generally been dc to home after. there is some help in the home through ID services
medical hx patient w hx syncope pulmonary htn pre diabetes down's pratima hypothyroid pneumonia in the past ovarian cyct tylenol level is under ten serum sodium 134 glucose 121 bp 103/66 tsh nl
family hx not known adopted
substance abuse none
social resides w father. mother 13 years ago. has some help in the home. likes watching tv. i noted in prior record that dad is getting older and needs more help and perhaps there is stress for mainor. she reports she has several other sibs
who live outside the home.
mse alert ox3 cooperative and pleasant. she did not appear depressed. speech is difficult to understand often. nl rate and tone more or less seems goal oriented no psychosis when i saw her i would say her affect was not congruent to mood but not
to someone who had just attempted to od. she was quite cheerful. cognitively impaired. insight and judgmeht lacking
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
plan will talk to dad. i don't know that lexapro is doing anything here. frankly i do not think the patient seemed depressed at all and i wonder if she did indeed swallow all those pills (though it is noted in the chart that she vomited). is she
eligible for more services in the home or for a day program for ID clients? does she have a case assistant. as stated will talk to dad and ask him these questions. i would certainly say any and all meds in the home should be in a lockbox. also should
dad be thinking about the future for mainor perhaps she needs an living environment with more structure stimulation and activity.
[2025-02-09] MEDS: LOVENOX 40 MG SC (17:39)
[2025-02-09 18:45] LABS: Blood Urea Nitrogen 13 mg/dl (7-17); Calcium 8.4 mg/dl (8.4-10.2); Carbon Dioxide 24 mmol/L (22-30); Chloride 106 mmol/L (98-107); Estimated Creatinine Clearance 76 ml/min; Glucose 102 mg/dl (70-99); Potassium 4.4 mmol/L (3.5-5.1); Sodium 136 mmol/L (135-145); eGFR > 60.00
--- NOTE | 2025-02-09 18:59 | W.PN.HOSP.TC ---
Addendum entered and electronically signed by Jabier Perea MD 02/09/25 20:36:
Attending Addendum-I saw and evaluated the patient. I reviewed the resident�s note and agree with findings and plan as documented in the resident�s note. Sub: feels greatly improved. No NV abd pain. Currently patient denies SI or HI. Seen with 1:1
presnet. Full 12 point ROS reviewed and negative except as documented Exam- vitals reviewed in EMR GEN-NAD heart RRR no MRG lungs clear abd soft NT ND pos BS. LE no edema Neuro AAO x 3
Plan:
# Acetaminophen OD-intentional
- to complete NAC protocol today
- LFTs INR stable
- acetaminophen level 50 -> <10
- appreciate psych input
- cont 1:1 observation for now
# Hypothyroidism-TSH suppressed, decrease levothyroxine, repeat 4-6 weeks
# HLD- hold zetia
# Depression- decrease Lexapro dose eventual DC
CODE Full- verified with POA
DVTp-lovenox
Dispo-exploring safest options for patient, father manages meds but is unable to do so effectively hopeful DC in am
Time spent coordinating care, review of plan of care with resident, personally reviewed records in EMR, med rec, consults, notes, labs, radiology, d/w nursing psych CM � 51 mins
Original Note:
Today's Communication/Plan
-
decreased levothyroxine 125 to 112 mg daily
decreased Lexapro 10mg to 5 mg daily
NAC protocol stopped today
Psychiatrist consulted
Assessment / Plan
Assessment / Plan
49-year-old female brought in by EMS today with a past medical history of developmental delay, pulmonary hypertension, hypothyroidism, prediabetes mellitus, depression who presents for unintentional overdose of acetaminophen. Family not at bedside
during the time of my interview . Patient states she took 1 bottles of Tylenol each night for the last 2 nights one bottle last night and the other bottle on Friday night total of 48 tablets and each tablet 650mg. She does not know the strength or
the number of pills in each of the bottles but she brought the bottle with her. She states that she has never taken Tylenol in the past before. When asked why she had taken that much Tylenol, she states that her mother 13 years ago and on
02/04 her mother anniversary caused her to want her harm herself. She states she vomited 1 time, clear vomitus, approximately 4 hours ago before she came to the ER and one episode at the ER. She denies abdominal pain, change in bowel
movements. I spoke with the her Father over the phone and confirmed the code status (full code) and he stated that she had multiple attempt to overdose herself with meds and went to ER multiple times and needed one time admission.
02/09/2025: AFVSS, Asymptomatic, NAC protocol 21 hours finished. All her labs are normal except low TSH , Lower the dose of levothyroxine from 125mg to 112 mg daily will check her TSH and T4 4-6 weeks after discharge, Lexpro decrease 10mg PO daily
to 5 mg daily.
spoke with her father today who stated that she helped him with cooking and grocery and he wants her to be with home with him.
# Acetaminophen over dose
- started on NAC protocol , finished today
- monitor LFTs INR q 6
- cont 1:1 observation
- check acetaminophen level in am came less than 10
- c/s psych and crisis management
- psychiatrist consulted
# Hypothyroidism
-TSH less than 0.02
-levothyroxine decreased 125 to 112 mg daily
# HLD
contunie hold zetia
# Depression
lexapro decrease from 10mg daily to 5 mg daily per psychiatrist
CODE Full- verified with her father POA
DVT-Lovenox
Anticipated Discharge: 24 - 48 hours
Subjective/Interval History
-
Date of Service: February 09, 2025
Pt was wearing the CPAP for her sleeping. she has no abd pain, no nausea, no vomiting, no change in her bowel movements. No other symptoms
Objective Data
-
Labs:
Laboratory Results
02/09/25 02/09/25 02/09/25
07:49 09:17 12:03
PT 15.0 H
INR 1.20
Sodium 135 134 L
Potassium 3.9 4.2
Chloride 108 H 106
Carbon Dioxide 22 25
BUN 9 11
Creatinine 0.9 0.9
Glucose 128 H 121 H
Calcium 8.1 L 8.3 L
Total Bilirubin 0.3
AST 18
ALT 19
Alkaline Phosphatase 54
02/09/25
18:11
PT
INR
Sodium 136
Potassium 4.4
Chloride 106
Carbon Dioxide 24
BUN 13
Creatinine 0.9
Glucose 102 H
Calcium 8.4
Total Bilirubin
AST
ALT
Alkaline Phosphatase
Vital Signs:
Vital Signs
Temp Pulse Resp BP Pulse Ox
98.8 F 73 18 109/57 96
02/09/25 15:00 02/09/25 15:00 02/09/25 15:00 02/09/25 15:00 02/09/25 15:00
I&O
02/08/25 02/09/25 02/10/25
06:59 06:59 06:59
Intake Total 585 / 585 1440 / 1440
Balance 585 / 585 1440 / 1440
Review of Systems
-
All other systems: Reviewed and negative
Physical Exam
-
General: No Apparent Distress
Respiratory: Clear to Auscultation
Cardiac: Regular Rhythm and S1/S2
GI: Soft, Nontender and Nondistended
Musculoskeletal: No Cyanosis and No Edema
Skin: Warm and Dry
Neuro: Awake, Oriented and Nonfocal/Grossly Intact
Psych: Calm
[2025-02-09 22:32] VITALS: PULSE 75
[2025-02-09 23:00] VITALS: BP 103/61
[2025-02-10 02:12] VITALS: PULSE 78
[2025-02-10] MEDS: SYNTHROID 112 MCG PO (05:31)
[2025-02-10 07:25] VITALS: BP 103/71
[2025-02-10] MEDS: LEXAPRO 5 MG PO (07:26)
[2025-02-10 08:32] LABS: Hematocrit 41.1 % (37.0-47.0); Hemoglobin 13.6 g/dL (12.0-16.0); Mean Corp Hgb Conc. 33.1 g/dL (33.0-37.0); Mean Corpuscular Volume 96.0 fL (81.0-99.0); Platelet Count 158 10^3/uL (130-400); Red Cell Dist. Width 17.1 % (11.5-14.5)
[2025-02-10 08:33] LABS: INR 1.07; PT 13.7 Sec (11.4-14.6)
[2025-02-10 09:27] LABS: ALT (SGPT) 29 U/L (0-35); AST (SGOT) 31 U/L (14-36); Acetaminophen < 10 ug/ml (10-30); Albumin 3.3 g/dl (3.5-5.0); Alkaline Phosphatase 65 U/L (38-126); Blood Urea Nitrogen 13 mg/dl (7-17); Calcium 8.3 mg/dl (8.4-10.2); Carbon Dioxide 26 mmol/L (22-30); Chloride 106 mmol/L (98-107); Estimated Creatinine Clearance 85 ml/min; Glucose 92 mg/dl (70-99); Magnesium 2.0 mg/dl (1.6-2.3); Potassium 4.3 mmol/L (3.5-5.1); Sodium 136 mmol/L (135-145); Total Protein 6.3 g/dl (6.3-8.2); eGFR > 60.00
--- NOTE | 2025-02-10 11:00 | W.PN.UPDATE ---
Update Note
Progress Note Update
patient seen chart reviewed. spoke with hospitalist and with nursing. mainor is very pleasant. we talked about the overdose and the reality that one day she may go too far and seriously injure herself. i made her aware of my conversation w her father
re locking meds in a double lock situation. we also talked about the precipitant of her overdoses....memories of mom, anger at dad. am going to email her cm at [facility] to see if they can come up with other activities for her outside the home. would
leave the lexapro at 5 mg for two weeks if not change in her demeanor pcp can dc. she will be dc later today likely
--- NOTE | 2025-02-10 11:08 | CM ---
Chart reviewed. Patient will discharge home today
Spoke w/ patient's father, informed patient will discharge home today
Father stated patient has [employer] [facility] but she has never used it. CM confirmed w/ father that ride reservations has to be made 24 hours in advance. Father understood, stated he will transport patient home then.
IMM verbally reviewed, copy on chart
Patient receives OP services at [facility] as well as help in the home through ID services per psych's note
Plan: Home, cont w/ current services
[2025-02-10 11:39] VITALS: BP 103/64
--- NOTE | 2025-02-10 16:01 | W.PN.HOSP.TC ---
Addendum entered and electronically signed by Jabier Perea MD 02/10/25 21:49:
Attending Addendum-I saw and evaluated the patient. I reviewed the resident�s note and agree with findings and plan as documented in the resident�s note. Sub: wants to go home. No NV abd pain. Currently patient denies SI or HI. Full 12 point ROS
reviewed and negative except as documented Exam- vitals reviewed in EMR GEN-NAD heart RRR no MRG lungs clear abd soft NT ND pos BS. LE no edema Neuro AAO x 3
Plan:
# Acetaminophen OD-intentional
- completed NAC protocol today
- LFTs INR stable
- acetaminophen level 50 -> <10
- appreciate psych input
- no SI or HI- DC 1:1
# Hypothyroidism-TSH suppressed, decreased levothyroxine, repeat 4-6 weeks
# HLD- hold zetia
# Depression- decreased Lexapro dose eventual DC
CODE Full- verified with POA
DVTp-lovenox
Dispo-exploring safest options to increase support at home. patient requesting to go home with father, stable for DC from psych standpoint
Time spent coordinating care, DC planning, review of DC plan of care with resident, transition of care, review of records, med rec/scripts sent electronically, consults, notes, d/w consultants, nursing, family updated, and CM�35 mins >50% of this
time was devoted to counseling and coordination of care
Original Note:
Today's Communication/Plan
-
platform material handler manager contacted for discharge plan
Psychiatrist cleared her for discharge home
she remained stable with no symptoms , her labs within normal levels
Discharged on levothyroxine 112 mcg PO daily
Discharged on Lexapro 5mg PO for two weeks and follow up with her PCP
i called her PCP office today and and gave an update for her admission and plan
Discharged home today
Assessment / Plan
Assessment / Plan
49-year-old female brought in by EMS today with a past medical history of developmental delay, pulmonary hypertension, hypothyroidism, prediabetes mellitus, depression who presents for unintentional overdose of acetaminophen. Family not at bedside
during the time of my interview . Patient states she took 1 bottles of Tylenol each night for the last 2 nights one bottle last night and the other bottle on Friday night total of 48 tablets and each tablet 650mg. She does not know the strength or
the number of pills in each of the bottles but she brought the bottle with her. She states that she has never taken Tylenol in the past before. When asked why she had taken that much Tylenol, she states that her mother 13 years ago and on
02/04 her mother anniversary caused her to want her harm herself. She states she vomited 1 time, clear vomitus, approximately 4 hours ago before she came to the ER and one episode at the ER. She denies abdominal pain, change in bowel
movements. I spoke with the her Father over the phone and confirmed the code status (full code) and he stated that she had multiple attempt to overdose herself with meds and went to ER multiple times and needed one time admission.
02/09/2025: AFVSS, Asymptomatic, NAC protocol 21 hours finished. All her labs are normal except low TSH , Lower the dose of levothyroxine from 125mg to 112 mg daily will check her TSH and T4 4-6 weeks after discharge, Lexpro decrease 10mg PO daily
to 5 mg daily and she can be discharged on same dose for two weeks and reccs follow up with her pcp if she has no symptoms ok to stop the med.
spoke with her father who stated that she helped him with cooking and grocery and he wants her to be with home with him. He has services through [employer] and she has ID services, he said he was locking the medication in his room but sometimes the
door was open. He stated that he is 83 years old man and she is capable of helping him with grocery and cooking. He stated that she has behavioral service that approved for 29 hours of help approved but only get about several hours.
Plan:
# Acetaminophen over dose
- started on NAC protocol , finished today
- monitor LFTs INR q 6
- cont 1:1 observation
- check acetaminophen level in am came less than 10
- psychiatrist consulted
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
-lexapro decreased from 10mg daily to 5 mg daily and follow up with her primary care for stop if she doesn't have symptoms or renew
# Hypothyroidism
-TSH less than 0.02
-levothyroxine decreased 125 to 112 mg daily
# HLD
contunie hold zetia
# Depression
lexapro decrease from 10mg daily to 5 mg daily per psychiatrist
CODE Full- verified with her father JEREMY
DVT-Lovenox
Anticipated Discharge: Today
Subjective/Interval History
-
Date of Service: February 10, 2025
Patient stats she feels well today. denies abdominal pain , nausea, vomiting, changes in bowel movements, headaches.
Objective Data
-
Labs:
Laboratory Results
02/10/25
07:15
WBC 4.4 L
Hgb 13.6
Hct 41.1
Plt Count 158
PT 13.7
INR 1.07
Sodium 136
Potassium 4.3
Chloride 106
Carbon Dioxide 26
BUN 13
Creatinine 0.8
Glucose 92
Calcium 8.3 L
Total Bilirubin 0.4
AST 31
ALT 29
Alkaline Phosphatase 65
Vital Signs:
Vital Signs
Temp Pulse Resp BP Pulse Ox
97.8 F 69 18 103/64 95
02/10/25 11:39 02/10/25 11:39 02/10/25 11:39 02/10/25 11:39 02/10/25 11:39
I&O
02/09/25 02/10/25 02/11/25
06:59 06:59 06:59
Intake Total 585 / 585 1440 / 1440
Balance 585 / 585 1440 / 1440
Review of Systems
-
All other systems: Reviewed and negative
Physical Exam
-
General: No Apparent Distress
Respiratory: Clear to Auscultation
Cardiac: Regular Rhythm and S1/S2
GI: Soft, Nontender and Nondistended
Musculoskeletal: No Cyanosis and No Edema
Skin: Warm and Dry
Neuro: Awake, Oriented and Nonfocal/Grossly Intact
Psych: Calm
--- NOTE | 2025-02-14 20:02 | W.DCSUMMARY ---
Discharge Summary
Discharge Data
Date of Admission: 02/08/25
Date of Discharge: 02/10/25
-
Pending Results: No
Hospital Course
Discharging Physician:
Jabier Perea
Silvestre Montes
Disposition:
Home
Primary Care Physician:
Marlon Mina
Principle Discharge Diagnosis:
Acetaminophen over dose-intentional
Adjustment disorder, unspecified cognitive disorder secondary to down's syndrome
Chronic Discharge Diagnosis:
Hypothyroidism
Depression
Hypothyroidism
Intellectual Disability
Severe obstructive sleep apnea
Morbid obesity
Prediabetic
Severe obstructive sleep apnea
Implantable loop recorder present
Hx of congenital heart disease
Essential hypertension
Pulmonary hypertension
Hospital Course:
Cha Rodríguez is a 49-year-old female who presented to the hospital for intentional overdose. Patient was brought in by EMS. Family not at bedside during the time of my interview. Patient states she took 2 bottles of Tylenol each night for the last
2 nights. She took 24 extra strength Tylenol tables 2 nights ago and 24 tablets last night (625mg each tablet) and she told her father 10minutes later..Patient had vomited x 1 in ED and 1 episode prior to ED arrival, non billios non bloody. She
denied SI or HI. Her acetaminophen level was 50 and INR 1.1 , glucose 121, LFT wnl. She admitted for acetaminophen over dose and started on NAC protocol 21 hours and 1:1 observation, Zetia med stopped to avoid liver toxicity and Psychiatrist
consulted. Her TDH was 0.02 so, levothyroxine dose decrease from 125mcg to 112mcg. She remained asymptomatic and her examination was negative. Per psychiatric evaluation she is alert ox3 cooperative and pleasant and no need for crisis placement or
inpatient psych she did not appear depressed and diagnosed with adjustment disorder unspecified cognitive disorder secondary to down's syndrome so, Lexapro 10mg has been decreased to 5mg daily. Spoke with her father who stated that she is capable of
cooking and do grocery and she has ID service comes each week for couple hours. He stated that he locks her meds. During hospitalization she remained asymptomatic and her acetaminophen level became less than 10, INR remained less than 2 and her
liver functions were normal. 1:1 observation discontinued and NAC protocol 21 hours finished on 02/09/2025. Patient was stable from psychiatrist standpoint to be discharged. She discharged in stable condition and advised to follow up with her PCP
within one week for Lexapro med reduced dose to take two weeks after discharge for continuation or stop the med and to do TSH test in 4-6 weeks.
Discharge Plan
-
Patient Disposition: Home (Routine Discharge)
Discharge Diagnosis/Procedures: Acetaminophen overdose
Diet: Low Fat, Low Cholesterol, Low Sodium and Diabetic, Carb Controlled
Activity: No restrictions
Driving Restrictions: No driving
Bathing Restrictions: OK to Shower
Blood Work: TSH and T4 blood test in 4-6weeks
Referrals:
Marlon Mina, DO [Non-Admitting Privileges, Family Practice] - in less than 1 week
UNKNOWN - PT NOT,INTERVIEWE [Family Provider]
Additional Discharge Medication Instructions: take levothyroxine 112 mcg once a day for one month and then follow up with your primary care for blood test (4-6weeks) and dose adjustment
take escitalopram oxalate 5 mg tablet daily for two weeks and follow up with primary care physician in one week for continuation or stopping the medication.
Prescriptions:
New
levothyroxine 112 mcg Tablet
112 mcg PO DAILY @ 0600 30 Days Qty: 30 0RF
escitalopram oxalate 5 mg Tablet
5 mg PO DAILY 14 Days Qty: 14 0RF
Continued
ascorbic acid (vitamin C) [Vitamin C] 1,000 mg Tablet
1,000 mg PO DAILY
ezetimibe 10 mg Tablet
10 mg PO DAILY
Discontinued
escitalopram oxalate 10 mg Tablet
10 mg PO DAILY
levothyroxine 125 mcg Tablet
125 mcg PO DAILY
Discharge Orders:
Discharge Patient (As Directed); Ordered 02/10/25
Ordered By: Silvestre Montes
Discharge Date and Time
Discharge Date/Time: 02/10/25 12:00
Print Language: CHINESE
== END 2025-02-10 12:00 | disposition home or self-care (01) | DRG 918 ==
LOC: 4 WEST ACU 14:54
PROVIDERS: Specialist Research Data Abstracter/Coder; ADMITTING PHYSICIAN Family Medicine; CONSULT PHYSICIAN Psychiatry & Neurology Psychiatry; EMERGENCY PHYSICIAN Emergency Medicine
DX: T39.1X2A Poisoning by 4-Aminophenol derivatives, intentional self-harm, initial encounter (principal); Z68.42 Body mass index [BMI] 45.0-49.9, adult; Z91.51 Personal history of suicidal behavior; E03.9 Hypothyroidism, unspecified; E78.5 Hyperlipidemia, unspecified; F32.A Depression, unspecified; Z63.4 Disappearance and death of family member; E66.01 Morbid (severe) obesity due to excess calories; Q90.9 Down syndrome, unspecified
CPT/HCPCS: 80048; 80053; 80143; 80179; 80306; 80307; 82248; 82977; 83605; 83735; 84443; 84703; 85025; 85027; 85610; 85730; 94660; 96361; 96365; 96366; 96375; 99285; J0132; J7030

== ENCOUNTER 2025-02-15 11:56 | Emergency (ER) | payer OTHER, MEDICAID, SELFPAY ==
[2025-02-15] VITALS (7 sets, daily range): BP systolic 94–113; BP diastolic 63–72
--- NOTE | 2025-02-15 12:18 | ED.GENMED ---
History of Present Illness
<Antoine Mukherjee PA-C - Last Filed: 02/15/25 18:31>
General
Chief Complaint: Overdose Intentional
Source: patient
Exam Limitations: none
Time Seen by Provider: 02/15/25 12:06
History of Present Illness
History of Present Illness:
49-year-old female with history of developmental delay, Down syndrome, history of prior attempts of self-harm. Recently here for Tylenol overdose was admitted for N-acetylcysteine treatment. She presents via EMS from home after admitting that at 9
this morning she her medication as well as her father's medications this morning. She took 112 mcg of Synthroid which was hers, she took 2 not milligrams of Coumadin, 600 mg of gemfibrozil, unknown dose of carvedilol and an unknown dose of
finasteride. She states she feels somewhat off but denies any pain nausea or vomiting or shortness of breath.
Past History
<Antoine Mukherjee PA-C - Last Filed: 02/15/25 18:31>
Past History
ED Past Medical History: Hypothyroidism, Psychiatric (Depression, ), Other (PNA, ), Other and Other (Down syndrome, pulmonary hypertension, SOPHY with CPAP, morbid obesity, )
ED Past Surgical History: Cardiac ([employer] Loop Recorder), Orthopedic (Left leg surgery), Tonsilectomy and Other (heart valve surgery as )
Social History
Tobacco: Non-smoker
Alcohol: None
Drug: None
Personal: Single
Living: with family
Employment: Employed
Phy Exam
<Antoine Mukherjee PA-C - Last Filed: 02/15/25 18:31>
Physical Exam
Physical Exam:
General: Well-appearing female no acute respiratory distress
HEENT: Normal cephalic atraumatic pupils equal round reactive to light
Heart: Regular rate and rhythm
Lungs: Clear no wheeze
Neurologic exam: Alert oriented to person and place conversing appropriately
Extremities: No cyanosis
Course
<Antoine Mukherjee PA-C - Last Filed: 02/15/25 18:31>
Orders/Labs/Results
Orders:
Orders
02/15/25 12:17
Electrocardiogram (*1) Urgent
Reason for Study: QTc Monitoring
EKG- Treatment ONCE
02/15/25 12:26
1:1 Observation - Suicide/ Violent Behavior As Directed
02/15/25 12:27
Alcohol Urgent
Complete Blood Count/With Diff Urgent
Comprehensive Metabolic Panel Urgent
HCG, Serum Qualitative Screen Urgent
PTT Urgent
Prothrombin Time Urgent
Salicylate Urgent
Tylenol [Acetaminophen] Urgent
02/15/25 12:42
Fentanyl, Urine Urgent
Urine Drug Abuse Screen Urgent
Date Specimen was Collected: 02/15/25
Time Specimen was Collected: 12:34
02/15/25 14:05
Crisis Consult Urgent
Reason for Consult: SI
02/15/25 18:20
Add On- LAB Urgent
Tests Added?: hcg qualitative
Abnormal Lab Results
02/15/25 02/15/25
12:27 12:42
MCH 31.4 H pg
(27.0-31.0)
RDW 16.7 H %
(11.5-14.5)
Absolute Lymphs (auto) 0.8 L 10^3/uL
(1.2-3.4)
Lymphocytes % 13.1 L %
(20.5-51.1)
Carbon Dioxide 31 H mmol/L
(22-30)
BUN 22 H mg/dl
(7-17)
Glucose 102 H mg/dl
(70-99)
Salicylates < 1.0 L mg/dl
(2.0-20.0)
Acetaminophen < 10 L ug/ml
(10-30)
Ur Tricyclics Screen Positive H
(Negative)
U Methamphetamines Scrn Positive H
(Negative)
02/15/25 12:27
02/15/25 12:27
Vital Signs
Initial and Last Documented VS:
Initial Vital Signs
Temp Pulse Resp Pulse Ox
97.5 F 60 16 96
02/15/25 12:05 02/15/25 12:05 02/15/25 12:05 02/15/25 12:05
Last Documented Vital Signs
Temp Pulse Resp BP Pulse Ox
97.5 F 63 18 102/67 95
02/15/25 12:05 02/15/25 19:07 02/15/25 19:07 02/15/25 20:38 02/15/25 18:04
<Gómez Zelaya, DO - Last Filed: 02/16/25 00:47>
Orders/Labs/Results
Orders:
Orders
02/15/25 12:17
Electrocardiogram (*1) Urgent
Reason for Study: QTc Monitoring
EKG- Treatment ONCE
02/15/25 12:26
1:1 Observation - Suicide/ Violent Behavior As Directed
02/15/25 12:27
Alcohol Urgent
Complete Blood Count/With Diff Urgent
Comprehensive Metabolic Panel Urgent
HCG, Serum Qualitative Screen Urgent
PTT Urgent
Prothrombin Time Urgent
Salicylate Urgent
Tylenol [Acetaminophen] Urgent
02/15/25 12:42
Fentanyl, Urine Urgent
Urine Drug Abuse Screen Urgent
Date Specimen was Collected: 02/15/25
Time Specimen was Collected: 12:34
02/15/25 14:05
Crisis Consult Urgent
Reason for Consult: SI
02/15/25 18:20
Add On- LAB Urgent
Tests Added?: hcg qualitative
Abnormal Lab Results
02/15/25 02/15/25
12:27 12:42
MCH 31.4 H pg
(27.0-31.0)
RDW 16.7 H %
(11.5-14.5)
Absolute Lymphs (auto) 0.8 L 10^3/uL
(1.2-3.4)
Lymphocytes % 13.1 L %
(20.5-51.1)
Carbon Dioxide 31 H mmol/L
(22-30)
BUN 22 H mg/dl
(7-17)
Glucose 102 H mg/dl
(70-99)
Salicylates < 1.0 L mg/dl
(2.0-20.0)
Acetaminophen < 10 L ug/ml
(10-30)
Ur Tricyclics Screen Positive H
(Negative)
U Methamphetamines Scrn Positive H
(Negative)
02/15/25 12:27
02/15/25 12:27
Vital Signs
Initial and Last Documented VS:
Initial Vital Signs
Temp Pulse Resp Pulse Ox
97.5 F 60 16 96
02/15/25 12:05 02/15/25 12:05 02/15/25 12:05 02/15/25 12:05
Last Documented Vital Signs
Temp Pulse Resp BP Pulse Ox
97.5 F 63 18 102/67 95
02/15/25 12:05 02/15/25 19:07 02/15/25 19:07 02/15/25 20:38 02/15/25 18:04
Ramylt;Antoine Mukherjee PA-C - Last Filed: 02/15/25 18:31>
MDM/Problems Addressed
Differential Diagnosis Includes:
Patient admits to taking medicines mentioned above. This was an attempt to hurt herself.
Patient looks nontoxic on exam we will check labs and EKG and monitor.
<Antoine Mukherjee PA-C - Last Filed: 02/15/25 18:31>
*Pulse Oximetry
SaO2: 96
Oxygen Mode of Delivery: Room air
Patient hypoxic: no
*Critical Care Note
Total Time (30-74mins, 75-104mins- exclusive of procedures): Not Applicable
<Antoine Mukherjee PA-C - Last Filed: 02/15/25 18:31>
Update Note
Update Note:
I spoke with toxicology at [facility] for recommendations regarding the patient's ingestion. The medicine was taken at 9 AM. They recommended an 8-hour observation from time of ingestion. Is been 9 hours. She has remained stable with
normal vital signs normal exam. At this time she is medically clear. I spoke with crisis who has a referral to [facility]. Waiting to hear back. But patient will be sent to inpatient psychiatric facility for intentional overdoses
<Gómez Zelaya DO - Last Filed: 02/16/25 00:47>
Update Note
Update Note:
I spoke with toxicology at [facility] for recommendations regarding the patient's ingestion. The medicine was taken at 9 AM. They recommended an 8-hour observation from time of ingestion. Is been 9 hours. She has remained stable with
normal vital signs normal exam. At this time she is medically clear. I spoke with clare who has a referral to [facility]. Waiting to hear back. But patient will be sent to inpatient psychiatric facility for intentional overdoses
8:20 PM update, evening ER attending
Asked to review to review disposition by clare, patient has been accepted to [facility] that apparently cannot get the CPAP this evening, he would like her to go home patient would like to go home
Will ask telepsych to evaluate the patient safety for home etc.
11:30 PM update--seen by telepsych cleared for discharge to home apparently father does not drive in the dark will be ER to warning
ED Attending Note
<Antoine Mukherjee PA-C - Last Filed: 02/15/25 18:31>
-
Portions of this chart may have been created with voice recognition software.� Occasional wrong word or��sound alike� substitutions may have occurred due to the inherent limitations of voice recognition software.
Discharge Plan
Departure
Patient Disposition: Home (Routine Discharge)
Date of Disposition: 02/15/25
Time of Disposition: 18:30
Patient with high blood pressure during this ER visit?: No
Condition: Good
Covid-19: Not Applicable
Discharge Problem:
Intentional overdose
Prescriptions:
No Action
ascorbic acid (vitamin C) [Vitamin C] 1,000 mg Tablet
1,000 mg PO DAILY
ezetimibe 10 mg Tablet
10 mg PO DAILY
levothyroxine 112 mcg Tablet
112 mcg PO DAILY @ 0600 30 Days Qty: 30 0RF
escitalopram oxalate 5 mg Tablet
5 mg PO DAILY 14 Days Qty: 14 0RF
Referrals:
Marlon Mina DO [Family Provider, Family Practice]
Interventions
Interventions:
*General Assessment Last Done: 02/15/25 12:05
*Neglect/Abuse Screening Last Done: 02/15/25 12:05
*ED COVID-19 Vaccine History Last Done: 02/15/25 12:22
*ED Influenza Vaccine History Last Done: 02/15/25 12:22
[facility] Risk Assessment Tool Last Done: 02/16/25 00:00
*Risk Screen - Suicide (C-SSRS) Last Done: 02/15/25 12:22
ED- Cardiac Assessment Last Done: 02/15/25 12:22
ED- Neurological Assessment Last Done: 02/15/25 12:22
ED-Psychological Assessment Last Done: 02/15/25 12:22
ED- Pulmonary Assessment Last Done: 02/15/25 12:22
Discharge Date and Time
Print Language: EQUATORIAL GUINEAN
[2025-02-15 12:55] LABS: Hematocrit 41.1 % (37.0-47.0); Hemoglobin 13.6 g/dL (12.0-16.0); Mean Corp Hgb Conc. 33.1 g/dL (33.0-37.0); Mean Corpuscular Volume 94.9 fL (81.0-99.0); Nucleated Red Blood Cells % 0 %; Platelet Count 196 10^3/uL (130-400); Red Cell Dist. Width 16.7 % (11.5-14.5)
[2025-02-15 12:59] LABS: ALT (SGPT) 27 U/L (0-35); AST (SGOT) 23 U/L (14-36); Acetaminophen < 10 ug/ml (10-30); Albumin 3.8 g/dl (3.5-5.0); Alkaline Phosphatase 68 U/L (38-126); Blood Urea Nitrogen 22 mg/dl (7-17); Calcium 8.6 mg/dl (8.4-10.2); Carbon Dioxide 31 mmol/L (22-30); Chloride 101 mmol/L (98-107); Glucose 102 mg/dl (70-99); Potassium 4.7 mmol/L (3.5-5.1); Salicylate < 1.0 mg/dl (2.0-20.0); Sodium 136 mmol/L (135-145); Total Protein 6.9 g/dl (6.3-8.2); eGFR > 60.00
[2025-02-15 13:12] LABS: INR 1.07; PT 14.1 Sec (11.4-14.6)
[2025-02-15 13:13] LABS: APTT 33.3 Sec (23.4-35.0)
[2025-02-15 19:03] LABS: HCG, Serum Qualitative Screen Negative
[2025-02-16 09:59] VITALS: BP 100/44
--- NOTE | 2025-02-16 09:59 | EDRN ---
Discharge instructions reviewed with patient and her father.
== END 2025-02-16 09:45 | disposition home or self-care (01) ==
LOC: EMR 11:56
PROVIDERS: Physician Assistant; EMERGENCY PHYSICIAN Emergency Medicine; FAMILY PHYSICIAN Family Medicine
DX: F33.2 Major depressive disorder, recurrent severe without psychotic features (principal); T50.992A Poisoning by other drugs, medicaments and biological substances, intentional self-harm, initial encounter; X58.XXXA Exposure to other specified factors, initial encounter; Y92.009 Unspecified place in unspecified non-institutional (private) residence as the place of occurrence of the external cause; E03.9 Hypothyroidism, unspecified; Q90.9 Down syndrome, unspecified; G47.33 Obstructive sleep apnea (adult) (pediatric); Z63.4 Disappearance and death of family member
CPT/HCPCS: 99284; 80053; 80143; 80179; 80306; 80307; 82077; 84703; 85025; 85610; 85730; 93005